=== PATIENT | female | born 1970 | race Caucasian/White ===

== ENCOUNTER 2016-09-01 12:29 | Emergency (ER) | payer BC, OTHER ==
[~2016-09-01] VITALS: Ht 162.6 cm; Wt 100.0 kg
[~2016-09-01 12:29] MED LIST: BUPR-197 PO; CITRTAB7 PO; CLON0.5T PO; EQL400TA PO; ESTR.625 PO; IBUP800T23 PO; LEXA10TA PO; METO25 PO; URSO300 PO; VITA10002 PO
[2016-09-01 12:36] VITALS: BP 139/63; PULSE 60; RESP 20; TEMP 98.2; O2SAT 96
[2016-09-01] MEDS ORDERED: FAMOTIDINE 20 MG/2 ML VIAL IV PUSH ONE (12:45)
[2016-09-01] MEDS ORDERED: SODIUM CHLORIDE 0.9% FLUSH 10 ML FLUSH IV FLUSH PRN (12:45)
--- NOTE | 2016-09-01 12:47 | PD ---
HPI Chief Complaint: Allergic/Adverse Reaction Time Seen by Provider: 12:44 Travel History International Travel<30 days: Yes Contact w/Intl Traveler<30days: [place] Traveled to: [email or web address] Traveled to known affect area: No History of Present Illness HPI 46-year-old female presents to the emergency department via EMS for evaluation after anaphylactic reaction to iodine. Patient came back from [place] last week and has been having diarrhea since. She saw her primary care physician, Dr. Rojas, who placed her on ciprofloxacin and Flagyl. She was having a CT the abdomen/pelvis done today at [facility] when they injected IV dye. She became short of breath and had hives on her back and trunk. She denies any tongue swelling or airway edema. Patient received Solu-Medrol, Benadryl, epinephrine prior to arrival. She states that when she had the allergic reaction, she had chest pressure, but that resolved when she received the medications. Patient states she feels much better at this time. Apparently, she was hypotensive and bradycardic when EMS arrived. Patient reports history gastric bypass, hypertension, GERD. She states she had a normal cardiac catheterization in 2007. She denies any cardiac history. PFSH Past Medical History Blood Disorders: No Anxiety: Yes (OC DISORDER) Depression: Yes Heart Rhythm Problems: Yes (TACHYCARDIA) Cancer: No Cardiac Catheterization: Yes (2010: NEGATIVE) Cardiovascular Problems: Yes (PALPITATIONS) High Cholesterol: Yes (resolved after gastric bypass) Chest Pain: Yes Diabetes: Yes (HX OF DIABETES PRIOR TO GASTRIC BYPASS) Patient Takes Glucophage: No Diminished Hearing: No Endocrine: Yes Gastrointestinal Disorders: Yes (PAIN/DIARRHEA) GERD: Yes Glaucoma: No Genitourinary: No Headaches: Yes Hepatitis: No Hiatal Hernia: No Hypertension: Yes (states resolved with gastric bypass) Immune Disorder: No Musculoskeletal: No Neurologic: No Psychiatric: Yes Reproductive: No Respiratory: No Immunizations Current: Yes Migraines: No Shingles: Yes Thyroid Disease: No PNEUMOCCOCAL Vaccine (Year): 1 ?: Not : 3 Para: 2 : 1 Dilation and Curettage (D&C): Yes (x3) Past Surgical History Abdominal Surgery: Yes (gastric bypass, HERNIA REPAIR/BOWEL RESECTION, APPY) AICD: No Appendectomy: Yes Cardiac Surgery: No Ear Surgery: No Endocrine Surgery: No Eye Surgery: No Genitourinary Surgery: No Gynecologic Surgery: Yes (D & C X3, HYSTERECTOMY/ BSO) Hysterectomy: Yes Joint Replacement: No Oral Surgery: No Pacemaker: No Thoracic Surgery: No Other Surgery: Yes Social History Alcohol Use: No Tobacco Use: No Substance Use: No Allergies-Medications (Allergen,Severity, Reaction): Coded Allergies: Adhesives (Unverified Allergy, Severe, SKIN BREAKDOWN, 09/21/15) Contrast Media (Verified Allergy, Severe, shortness of breath and hives, ) Sulfa (Verified Allergy, Severe, Hives, 09/21/15) *MDRO Multi-Drug Resistant Organism (Verified Adverse Reaction, Unknown, ) ESBL (sputum) - 2011 Reported Meds & Prescriptions Reported Meds & Active Scripts Active Zantac (Ranitidine HCl) 150 Mg Tab 150 Mg PO BID 4 Days Prednisone 20 Mg Tab 40 Mg PO DAILY 4 Days Epipen 2-Adam Inj (Epinephrine) 0.3 Mg/0.3 Ml Pfpen 0.3 Mg IM ONCE PRN Ibuprofen 800 Mg Tab 800 Mg PO Q6H PRN Reported Vitamin B12 (Cyanocobalamin) 1,000 Mcg Tab 1,000 Mcg PO DAILY Wellbutrin (Bupropion HCl) 100 Mg Tab 150 Mg PO DAILY Eql Folic Acid (Folic Acid) 400 Mcg Tab 400 Mcg PO DAILY Clonazepam 0.5 Mg Tab 0.5 Mg PO BID Citracal + D3 Maximum (Calcium Citrate/Cholecalciferol) Tab 1 Tab PO BID Actigall (Ursodiol) 300 Mg Cap 300 Mg PO BID Premarin (Estrogens Conjugated) 0.625 Mg Tab 0.625 Mg PO DAILY Metoprolol Tartrate 25 mg (Metoprolol Tartrate) 25 Mg Tab 12.5 Mg PO HS Lexapro (Escitalopram Oxalate) 10 Mg Tab 20 Mg PO HS Review of Systems Except as stated in HPI: all other systems reviewed are Neg Physical Exam Narrative GENERAL: Well-nourished, well-developed female patient, afebrile. SKIN: Focused skin assessment warm/dry. Patient has urticaria below her bilateral breasts, worse under the right breast. HEAD: Normocephalic. Atraumatic. ENT: Mucosa pink and moist. No erythema or exudates. No uvular edema. No uvular , palatal, or tonsillar deviation. Airway patent. Nasal turbinates appear normal without nasal blood, purulent drainage or septal hematoma. EYES: No scleral icterus. No injection or drainage. NECK: Supple, trachea midline. No JVD or lymphadenopathy. CARDIOVASCULAR: Regular rate and rhythm without murmurs, gallops, or rubs. RESPIRATORY: Breath sounds equal bilaterally. No accessory muscle use. Lungs sounds are clear to auscultation. GASTROINTESTINAL: Abdomen soft, non-tender, nondistended. MUSCULOSKELETAL: No cyanosis, or edema. BACK: Nontender without obvious deformity. No CVA tenderness. Data Data Last Documented VS Vital Signs Date Time Temp Pulse Resp B/P Pulse Ox O2 Delivery O2 Flow Rate FiO2 09/01/16 13:55 65 18 118/57 98 Room Air 09/01/16 12:40 2 09/01/16 12:36 98.2 Orders Basic Metabolic Panel (Bmp) (09/01/16 12:42) Complete Blood Count With Diff (09/01/16 12:42) Ecg Monitoring (09/01/16 12:42) Iv Access Insert/Monitor (09/01/16 12:42) Oximetry (09/01/16 12:42) Famotidine Inj (Pepcid Inj) (09/01/16 12:45) Sodium Chloride 0.9% Flush (Ns Flush) (09/01/16 12:45) Creatine Kinase (Cpk) (09/01/16 12:42) Troponin I (09/01/16 12:42) Magnesium (Mg) (09/01/16 12:42) Electrocardiogram (09/01/16 ) Labs Laboratory Tests Test 09/01/16 12:45 White Blood Count 7.4 TH/MM3 Red Blood Count 4.80 MIL/MM3 Hemoglobin 14.0 GM/DL Hematocrit 41.3 % Mean Corpuscular Volume 86.2 FL Mean Corpuscular Hemoglobin 29.2 PG Mean Corpuscular Hemoglobin 33.8 % Concent Red Cell Distribution Width 13.5 % Platelet Count 130 TH/MM3 Mean Platelet Volume 9.2 FL Neutrophils (%) (Auto) 73.5 % Lymphocytes (%) (Auto) 22.7 % Monocytes (%) (Auto) 2.3 % Eosinophils (%) (Auto) 1.0 % Basophils (%) (Auto) 0.5 % Neutrophils # (Auto) 5.4 TH/MM3 Lymphocytes # (Auto) 1.7 TH/MM3 Monocytes # (Auto) 0.2 TH/MM3 Eosinophils # (Auto) 0.1 TH/MM3 Basophils # (Auto) 0.0 TH/MM3 CBC Comment DIFF FINAL Differential Comment Sodium Level 140 MEQ/L Potassium Level 3.8 MEQ/L Chloride Level 106 MEQ/L Carbon Dioxide Level 24.5 MEQ/L Anion Gap 10 MEQ/L Blood Urea Nitrogen 12 MG/DL Creatinine 0.63 MG/DL Estimat Glomerular Filtration 101 ML/MIN Rate Random Glucose 182 MG/DL Calcium Level 8.8 MG/DL Magnesium Level 1.8 MG/DL Total Creatine Kinase 50 U/L Troponin I LESS THAN 0.02 NG/ML MDM Medical Decision Making Medical Screen Exam Complete: Yes Emergency Medical Condition: Yes Medical Record Reviewed: Yes Differential Diagnosis Anaphylaxis versus allergic reaction versus ACS versus electrolyte abnormality Narrative Course 46-year-old female presents to the emergency department via EMS for evaluation of allergic reaction to contrast dye. Patient has received Solu-Medrol, epinephrine, Benadryl prior to arrival. Patient states she feels much better at this time. Vital signs are stable. EKG, CBC, BMP, magnesium, CK, troponin are ordered and pending. EKG shows sinus bradycardia, incomplete right bundle branch block, no acute ST changes. CBC shows no acute abnormality. BMP shows hyperglycemia 182, no acute abnormality. CK is 50. Magnesium is 1.8. Troponin is less than 0.02. Patient is monitored in the emergency department. Patient is asking to go home. She is ambulatory in the emergency Department, vital signs are stable. She states she feels fine and does not want to stay here. Patient will be discharged with a prescription for EpiPen. She also be given a short-term prescription for prednisone, Zantac. She is taking Benadryl [id number]. She verbalizes agreement and understanding. She is return immediately for any worsening symptoms. The patient was discharged in stable condition with instructions, including return instructions and follow up instructions. Diagnosis Primary Impression: Anaphylactic reaction Qualified Code: T78.2XXA - Anaphylactic reaction, initial encounter Referrals: Primary Care Physician call for appointment Patient Instructions: Anaphylaxis (ED), General Instructions Additional Instructions: Take prednisone as instructed. Start this tomorrow. Take Zantac as directed. [id number] Benadryl 25-50 mg every 6-8 hours as needed. Epipen only as needed for anaphylaxis. Follow-up with your primary care physician. Return to the emergency department for any acute worsening of symptoms. Med/Other Pt SpecificInfo: Prescription(s) given Scripts Ranitidine (Zantac)150 Mg [id number] Mg PO BID 4 Days Ref 0 Prov:Odalis West 09/01/16 Prednisone 20 Mg Tab40 Mg PO DAILY 4 Days Ref 0 Prov:Odalis West 09/01/16 Epinephrine Inj (Epipen 2-Adam Inj)0.3 Mg/0.3 Ml Pfpen0.3 Mg IM ONCE PRN ( ALLERGIC REACTION) #1 PACK Ref 0 Prov:Ian Guo MD 09/01/16 Disposition: 01 DISCHARGE HOME Condition: Stable Odalis West Sep 01, 2016 12:47
[2016-09-01 13:02] VITALS: O2SAT 99
[2016-09-01 13:05] LABS: AUTOMATED NEUTROPHIL # 5.4 TH/MM3 (1.8-7.7); BASOPHIL % 0.5 % (0.0-2.0); EOSINOPHIL # 0.1 TH/MM3 (0-0.4); HEMATOCRIT 41.3 % (35.0-46.0); HEMO FLAGS DIFF FINAL; LYMPH % 22.7 % (9.0-44.0); LYMPHOCYTE # 1.7 TH/MM3 (1.0-4.8); MEAN CELL VOLUME 86.2 FL (80.0-100.0); MEAN CORPUSCULAR HEMOGLOBIN 29.2 PG (27.0-34.0); MEAN CORPUSCULAR HGB CONC 33.8 % (32.0-36.0); MONO % 2.3 % (0.0-8.0); NEUT % 73.5 % (16.0-70.0); PLATELET COUNT 130 TH/MM3 (150-450); RED CELL DISTRIBUTION WIDTH 13.5 % (11.6-17.2); WHITE BLOOD COUNT 7.4 TH/MM3 (4.0-11.0)
[2016-09-01 13:22] LABS: ANION GAP 10 MEQ/L (5-15); BICARBONATE 24.5 MEQ/L (21.0-32.0); BLOOD UREA NITROGEN 12 MG/DL (7-18); CHLORIDE 106 MEQ/L (98-107); GLOMERULAR FILTRATION RATE 101 ML/MIN (>89); MAGNESIUM 1.8 MG/DL (1.5-2.5); POTASSIUM 3.8 MEQ/L (3.5-5.1); SODIUM (NA) 140 MEQ/L (136-145)
[2016-09-01 13:30] LABS: CREATINE KINASE 50 U/L (26-192)
[2016-09-01] MEDS ORDERED: EPIP0.3I IM (13:31)
[2016-09-01] MEDS ORDERED: ZANT150T2 PO (13:52)
[2016-09-01] MEDS ORDERED: PRED20 PO (13:52)
[2016-09-01 13:55] VITALS: BP 118/57; PULSE 65; RESP 18; O2SAT 98
--- NOTE | 2016-09-02 12:02 | EKG ---
Date Performed: 09/01/2016 Time Performed: 12:50:50 PTAGE: 46 years EKG: SINUS BRADYCARDIA INTRAVENTRICULAR CONDUCTION DELAY Right bundle branch block ABNORMAL ECG PREVIOUS TRACING : 09/21/2015 20.43 DOCTOR: Deion Cruz Interpretating Date/Time 09/02/2016 12:00:09
== END 2016-09-01 14:19 | disposition home or self-care (01) ==
LOC: NEPC 12:29
DX: T78.2XXA Anaphylactic shock, unspecified, initial encounter (principal); Z98.84 Bariatric surgery status
CPT/HCPCS: 80048; 82550; 83735; 84484; 85025; 93005; 99284

== ENCOUNTER 2016-10-17 21:18 | Emergency (ER) | payer OTHER ==
[~2016-10-17] VITALS: Ht 162.6 cm; Wt 126.5 kg
[~2016-10-17 21:18] MED LIST changes: +EPIP0.3I IM; +PRED20 PO; +ZANT150T2 PO
[2016-10-17 21:31] VITALS: BP 135/74; PULSE 71; RESP 18; TEMP 97.5; O2SAT 97
[2016-10-17] MEDS ORDERED: CLON0.5T PO (21:48)
[2016-10-17] MEDS ORDERED: ALPR.5 PO (21:48)
[2016-10-17] MEDS ORDERED: MAGN100T2 PO (21:48)
[2016-10-17] MEDS ORDERED: OMEP20TA PO (21:48)
[2016-10-17] MEDS ORDERED: LEXA20TA PO (21:48)
[2016-10-17] MEDS ORDERED: CALC600T4 PO (21:48)
[2016-10-17] MEDS ORDERED: METO25TA3 PO (21:48)
[2016-10-17] MEDS ORDERED: WELLTAB39 PO (21:48)
[2016-10-17] MEDS ORDERED: CYAN1TAB24 PO (21:48)
[2016-10-17] MEDS ORDERED: DOCU100C PO (21:48)
[2016-10-17] MEDS ORDERED: MULT-65 PO (21:48)
[2016-10-17] MEDS ORDERED: FOLI400T PO (21:48)
[2016-10-17] MEDS ORDERED: MOBI7.5T PO (21:48)
--- NOTE | 2016-10-17 21:50 | PD ---
HPI Chief Complaint: Injury Time Seen by Provider: 21:47 Travel History International Travel<30 days: No Contact w/Intl Traveler<30days: No Traveled to known affect area: No History of Present Illness HPI 46-year-old female presents to the ED for evaluation of left ankle pain. Onset at 7:30 this evening after the patient tripped and fell in the parking lot. She reports hearing a loud crack. Pain is on the lateral aspect of the foot. She endorses taking a few limping steps with a great amount of pain. She endorses pins and needle sensation. She denies limitations to range of motion. She has never injured this foot before. She treated with 800 mg ibuprofen just after the accident. PFSH Past Medical History Blood Disorders: No Anxiety: Yes (OC DISORDER) Depression: Yes Heart Rhythm Problems: Yes (TACHYCARDIA) Cancer: No Cardiac Catheterization: Yes (2010: NEGATIVE) Cardiovascular Problems: Yes (PALPITATIONS) High Cholesterol: Yes (resolved after gastric bypass) Chest Pain: Yes Diabetes: Yes (HX OF DIABETES PRIOR TO GASTRIC BYPASS) Diminished Hearing: No Endocrine: Yes Gastrointestinal Disorders: Yes (PAIN/DIARRHEA) GERD: Yes Glaucoma: No Genitourinary: No Headaches: Yes Hepatitis: No Hiatal Hernia: No Hypertension: Yes (states resolved with gastric bypass) Immune Disorder: No Musculoskeletal: No Neurologic: No Psychiatric: Yes Reproductive: No Respiratory: No Immunizations Current: Yes Migraines: No Shingles: Yes Thyroid Disease: No PNEUMOCCOCAL Vaccine (Year): 1 : 3 Para: 2 : 1 Dilation and Curettage (D&C): Yes (x3) Past Surgical History Abdominal Surgery: Yes (gastric bypass, HERNIA REPAIR/BOWEL RESECTION, APPY) AICD: No Appendectomy: Yes Cardiac Surgery: No Ear Surgery: No Endocrine Surgery: No Eye Surgery: No Genitourinary Surgery: No Gynecologic Surgery: Yes (D & C X3, HYSTERECTOMY/ BSO) Hysterectomy: Yes Joint Replacement: No Oral Surgery: No Pacemaker: No Thoracic Surgery: No Other Surgery: Yes Social History Alcohol Use: No Tobacco Use: No Substance Use: No Allergies-Medications (Allergen,Severity, Reaction): Coded Allergies: Sulfa (Sulfonamide Antibiotics) (Unverified Allergy, Severe, Hives, ) adhesive (Unverified Allergy, Severe, SKIN BREAKDOWN, 09/26/16) diatrizoate meglumine (Unverified Allergy, Severe, shortness of breath and hives, 09/26/16) gadobenic acid (Unverified Allergy, Severe, shortness of breath and hives , 09/26/16) gadodiamide (Unverified Allergy, Severe, shortness of breath and hives, ) gadoteridol (Unverified Allergy, Severe, shortness of breath and hives, ) iodixanol (Unverified Allergy, Severe, shortness of breath and hives, 09/26) iohexol (Unverified Allergy, Severe, shortness of breath and hives, ) *MDRO Multi-Drug Resistant Organism (Verified Adverse Reaction, Unknown, ) ESBL (sputum) - 2011 Reported Meds & Prescriptions Reported Meds & Active Scripts Active Wheelchair (Device) 1 Mis Mis Ea .ROUTE DIRECTED Ibuprofen 600 Mg Tab 600 Mg PO Q8HR 5 Days Reported Docusate Sodium 100 Mg Cap 200 Mg PO DAILY Clonazepam 0.5 Mg Tab 0.5 Mg PO BID Xanax (Alprazolam) 0.5 Mg Tab 0.5 Mg PO HS Metoprolol Tartrate 25 Mg Tab 12.5 Mg PO DAILY Mobic (Meloxicam) 7.5 Mg Tab 7.5 Mg PO DAILY Lexapro (Escitalopram Oxalate) 20 Mg Tab 20 Mg PO DAILY Magnesium Citrate 100 Mg Tab 100 Mg PO BID Folic Acid 0.4 Mg Tab 400 Mcg PO DAILY Calcium Carbonate 1,500 Mg Tab 1,500 Mg PO BID 1,500 mg calcium carbonate (600 mg elemental calcium) Omeprazole 20 Mg Tab 20 Mg PO DAILY Multi-Vitamin Daily (Multiple Vitamin) 1 Tab Tab 1 Tab PO DAILY B12 (Cyanocobalamin) 1,000 Mcg Tab 1 Tab PO DAILY Wellbutrin Xl 24 HR (Bupropion HCl) 300 Mg Tab 300 Mg PO DAILY Review of Systems Except as stated in HPI: all other systems reviewed are Neg Physical Exam Narrative GENERAL: Well-nourished, well-developed obese white female in no acute distress. SKIN: Focused skin assessment warm/dry. HEAD: Normocephalic. EYES: No scleral icterus. No injection or drainage. NECK: Supple, trachea midline. No JVD or lymphadenopathy. CARDIOVASCULAR: Regular rate and rhythm without murmurs, gallops, or rubs. RESPIRATORY: Breath sounds equal bilaterally. No accessory muscle use. GASTROINTESTINAL: Abdomen soft, non-tender, nondistended. MUSCULOSKELETAL: No cyanosis, or edema. Focused left lower extremity exam: 2+ DP pulse. Edema and tenderness to palpation of the lateral malleolus and the base of the fifth metatarsal. No tenderness to palpation of the medial malleolus or navicular. Patient is able to wiggle the toes. Neurovascularly intact. BACK: Nontender without obvious deformity. No CVA tenderness. Data Data Last Documented VS Vital Signs Date Time Temp Pulse Resp B/P (MAP) Pulse Ox O2 Delivery O2 Flow Rate FiO2 10/17/16 21:31 97.5 71 18 135/74 (94) 97 Orders Orders Ankle, Complete (Opt1ary) (10/17/16 22:12) Ice/Cold Pack (10/17/16 22:12) Crutches (10/17/16 22:40) Splint Or Brace Apply/Monitor (10/17/16 22:40) MDM Medical Decision Making Medical Screen Exam Complete: Yes Emergency Medical Condition: Yes Differential Diagnosis Contusion versus ankle sprain versus avulsion fracture versus high ankle sprain versus fracture versus dislocation versus other Narrative Course 46-year-old female presents to the ED for evaluation of left ankle pain. Onset at 7:30 this evening after the patient tripped and fell in the parking lot. She reports hearing a loud crack. Pain is on the lateral aspect of the foot. She endorses taking a few limping steps with a great amount of pain. She endorses pins and needle sensation. She denies limitations to range of motion. She has never injured this foot before. She treated with 800 mg ibuprofen just after the accident. Vitals reviewed. Physical exam reveals a nontoxic- appearing white female in no acute distress. This tenderness to palpation of the lateral malleolus and the base of the fifth metatarsal, otherwise unremarkable. Icepack was applied. X-ray reveals nondisplaced fracture base of fifth metatarsal. Suspect this is avulsion fracture. Patient is provided with an Louie wrap, Velcro ankle brace, crutches. She was unable to ambulate on crutches and was therefore provided a prescription for wheelchair rental. She is provided a short course of anti-inflammatory medications, instructed to be strictly nonweightbearing, follow up with the stock chaser or orthopedist. She indicated understanding of instructions and is agreeable to the care plan. She is stable and discharged home. Diagnosis Primary Impression: Left ankle sprain Qualified Codes: S93.492A - Sprain of other ligament of left ankle, initial encounter Additional Impression: Fracture of 5th metatarsal Qualified Codes: S92.355A - Nondisplaced fracture of fifth metatarsal bone, left foot, initial encounter for closed fracture Referrals: Suman Peterson MD, [facility] Customer Service Associate Patient Instructions: Ankle Sprain (ED), Ankle Sprain Exercises (GEN), General Instructions Additional Instructions: Rest, ice, elevate the extremity. Apply ice no longer than 10-15 minutes per hour a few times a day. 600 mg ibuprofen up to 3 times a day as needed for pain. Do not take prednisone and ibuprofen concurrently. No weight bearing until cleared by the orthopedist. Follow up with the orthopedist or stock chaser this week. Return to the ED for any urgent or emergent medical condition. Med/Other Pt SpecificInfo: Prescription(s) given Scripts Wheelchair (Wheelchair) 1 Mis Mis EA .ROUTE DIRECTED, #1 0 Refills Prov: Scottie Garland MD 10/17/16 Ibuprofen (Ibuprofen) 600 Mg Tab 600 MG PO Q8HR for 5 Days, TAB 0 Refills Prov: Scottie Garland MD 10/17/16 Disposition: 01 DISCHARGE HOME Condition: Stable Pooja Dumas Oct 17, 2016 21:50
[2016-10-17] MEDS ORDERED: IBUP-232 PO (22:42)
--- NOTE | 2016-10-17 22:46 | RADRPT ---
EXAM DATE/TIME: 10/17/2016 22:25 [place] COMPARISON: No previous studies available for comparison. INDICATIONS : Lateral left ankle swelling after twisting it tonight. MEDICAL HISTORY : None. SURGICAL HISTORY : None. ENCOUNTER: Initial ACUITY: 1 day PAIN SCORE: 6/10 LOCATION: Left lateral ankle. FINDINGS: Three view exam was performed of the left ankle. There is a mildly displaced left fifth metatarsal fr acture. Soft tissue swelling over lateral malleolus. The ankle mortise is intact. No radiopaque fore ign bodies are seen. Bony mineralization is normal. CONCLUSION: Soft tissue swelling of the left ankle. Mildly displaced left fifth metatarsal fracture proximally. Sina Blevins MD on October 17, 2016 at 22:44 Board Certified Radiologist. This report was verified electronically.
[2016-10-17] MEDS ORDERED: WHEEMIS3 (23:01)
== END 2016-10-17 23:02 | disposition home or self-care (01) ==
LOC: PHEFT 21:18
DX: S93.492A Sprain of other ligament of left ankle, initial encounter (principal); S92.355A Nondisplaced fracture of fifth metatarsal bone, left foot, initial encounter for closed fracture; R00.0 Tachycardia, unspecified; R00.2 Palpitations; Z98.84 Bariatric surgery status; W01.0XXA Fall on same level from slipping, tripping and stumbling without subsequent striking against object, initial encounter; Y93.01 Activity, walking, marching and hiking; Y92.481 Parking lot as the place of occurrence of the external cause; Y99.8 Other external cause status
CPT/HCPCS: 73610; 99283; E0113; L1906

== ENCOUNTER 2017-02-11 02:32 | Inpatient (IN) | payer OTHER ==
[~2017-02-11] VITALS: Ht 157.5 cm; Wt 123.1 kg
[2017-02-11] VITALS (11 sets, daily range): BP systolic 113–149; BP diastolic 53–74; PULSE 53–98; RESP 12–20; TEMP 96.2–100.5; O2SAT 94–99
[~2017-02-11 02:32] MED LIST changes: +ALPR.5 PO; -BUPR-197 PO; +CALC600T4 PO; -CITRTAB7 PO; +CYAN1TAB24 PO; +DOCU100C15 PO; -EPIP0.3I IM; -EQL400TA PO; -ESTR.625 PO; +FOLI400T PO; +IBUP-232 PO; -IBUP800T23 PO; -LEXA10TA PO; +LEXA20TA PO; +MAGN100T2 PO; -METO25 PO; +METO25TA3 PO; +MOBI7.5T PO; +MULT-65 PO; +OMEP20TA93 PO; -PRED20 PO; -URSO300 PO; -VITA10002 PO; +WELLTAB39 PO; +WHEEMIS3; -ZANT150T2 PO
[2017-02-11] MEDS ORDERED: ALPR0.25 PO (03:06)
[2017-02-11] MEDS ORDERED: HYDR-3516 PO (03:06)
[2017-02-11] MEDS ORDERED: MAGN400T2 PO (03:06)
[2017-02-11] MEDS ORDERED: URSO300C2 PO (03:06)
[2017-02-11] MEDS ORDERED: SODIUM CHLOR 0.9% 1000 ML INJ 1,000 ML IV SCH ×2 (03:16→14:00)
--- NOTE | 2017-02-11 03:23 | PD ---
HPI Chief Complaint: Abdominal Pain Time Seen by Provider: 03:16 Travel History International Travel<30 days: No Contact w/Intl Traveler<30days: No Traveled to known affect area: No History of Present Illness HPI The patient is a 46-year-old female who complains since 8:00 of right upper quadrant abdominal pain radiating to her right scapular region. She states she has gallstones and was told by Dr. Hutchins that she needed to have her gallbladder removed. She states she has had everything else out, the appendix and uterus and has had a gastric bypass. She complains of nausea and vomiting as well as the abdominal pain. She denies any fever. The gastric bypass was 5 years ago. PFSH Past Medical History Blood Disorders: No Anxiety: Yes (OC DISORDER) Depression: Yes Heart Rhythm Problems: Yes (TACHYCARDIA) Cancer: No Cardiac Catheterization: Yes (2010: NEGATIVE) Cardiovascular Problems: Yes (PALPITATIONS) High Cholesterol: Yes (resolved after gastric bypass) Chest Pain: Yes Diabetes: Yes (HX OF DIABETES PRIOR TO GASTRIC BYPASS) Diminished Hearing: No Endocrine: Yes Gastrointestinal Disorders: Yes (PAIN/DIARRHEA) GERD: Yes Glaucoma: No Genitourinary: No Headaches: Yes Hepatitis: No Hiatal Hernia: No Hypertension: Yes Immune Disorder: No Musculoskeletal: No Neurologic: No Psychiatric: Yes Reproductive: No Respiratory: No Immunizations Current: Yes Migraines: No Shingles: Yes Thyroid Disease: No PNEUMOCCOCAL Vaccine (Year): 1 ?: Not : 3 Para: 2 : 1 Dilation and Curettage (D&C): Yes (x3) Past Surgical History Abdominal Surgery: Yes (GASTRIC BYPASS, HERNIA REPAIR/BOWEL RESECTION, APPY) AICD: No Appendectomy: Yes Cardiac Surgery: No Ear Surgery: No Endocrine Surgery: No Eye Surgery: No Genitourinary Surgery: No Gynecologic Surgery: Yes (D & C X3, HYSTERECTOMY/ BSO) Hysterectomy: Yes Joint Replacement: No Oral Surgery: No Pacemaker: No Thoracic Surgery: No Other Surgery: Yes Social History Alcohol Use: No Tobacco Use: No Substance Use: No Allergies-Medications (Allergen,Severity, Reaction): Coded Allergies: Sulfa (Sulfonamide Antibiotics) (Unverified Allergy, Severe, Hives, ) adhesive (Unverified Allergy, Severe, SKIN BREAKDOWN, 02/11/17) diatrizoate meglumine (Unverified Allergy, Severe, shortness of breath and hives, 02/11/17) gadobenic acid (Unverified Allergy, Severe, shortness of breath and hives , 02/11/17) gadodiamide (Unverified Allergy, Severe, shortness of breath and hives, ) gadoteridol (Unverified Allergy, Severe, shortness of breath and hives, ) iodixanol (Unverified Allergy, Severe, shortness of breath and hives, ) iohexol (Unverified Allergy, Severe, shortness of breath and hives, ) *MDRO Multi-Drug Resistant Organism (Verified Adverse Reaction, Unknown, 02/11/17) ESBL (sputum) - 2011 Reported Meds & Prescriptions Reported Meds & Active Scripts Active Ibuprofen 600 Mg Tab 600 Mg PO Q8HR 5 Days Reported Hydrocodone-Acetaminophen 5-325 mg Tab 1 Tab PO Q4H PRN Ursodiol 300 Mg Cap 300 Mg PO BID Magnesium Oxide 400 Mg Tab 400 Mg PO DIRECTED Alprazolam 0.25 Mg Tab 0.25 Mg PO Q4H PRN Docusate Sodium 100 Mg Cap 200 Mg PO DAILY Clonazepam 0.5 Mg Tab 0.5 Mg PO BID Metoprolol Tartrate 25 Mg Tab 12.5 Mg PO DAILY Mobic (Meloxicam) 7.5 Mg Tab 7.5 Mg PO DAILY Lexapro (Escitalopram Oxalate) 20 Mg Tab 20 Mg PO DAILY Magnesium Citrate 100 Mg Tab 100 Mg PO BID Folic Acid 0.4 Mg Tab 400 Mcg PO DAILY Calcium Carbonate 1,500 Mg Tab 1,500 Mg PO BID 1,500 mg calcium carbonate (600 mg elemental calcium) Omeprazole 20 Mg Tab 20 Mg PO DAILY Multi-Vitamin Daily (Multiple Vitamin) 1 Tab Tab 1 Tab PO DAILY B12 (Cyanocobalamin) 1,000 Mcg Tab 1 Tab PO DAILY Wellbutrin Xl 24 HR (Bupropion HCl) 300 Mg Tab 300 Mg PO DAILY Review of Systems Except as stated in HPI: all other systems reviewed are Neg Physical Exam Narrative GENERAL: The patient is obese, alert, oriented 3 in moderate apparent distress with her right upper quadrant abdominal discomfort. The temperature is 97.6 but the rest of her vital signs are normal. SKIN: Focused skin assessment warm/dry. HEAD: Atraumatic. Normocephalic. EYES: Pupils equal and round. No scleral icterus. No injection or drainage. ENT: No nasal bleeding or discharge. Mucous membranes pink and moist. NECK: Trachea midline. No JVD. CARDIOVASCULAR: Regular rate and rhythm. No murmur appreciated. RESPIRATORY: No accessory muscle use. Clear to auscultation. Breath sounds equal bilaterally. GASTROINTESTINAL: Abdomen soft, with tenderness to direct palpation in the right upper quadrant, nondistended. Hepatic and splenic margins not palpable. Aviles's sign is negative . There is no guarding or rebound present. MUSCULOSKELETAL: No obvious deformities. No clubbing. No cyanosis. No edema. NEUROLOGICAL: Awake and alert. No obvious cranial nerve deficits. Motor grossly within normal limits. Normal speech. PSYCHIATRIC: Appropriate mood and affect; insight and judgment normal. Data Data Last Documented VS Vital Signs Date Time Temp Pulse Resp B/P (MAP) Pulse Ox O2 Delivery O2 Flow Rate FiO2 02/11/17 03:35 53 20 147/68 (94) 96 02/11/17 02:39 97.6 Orders Orders Complete Blood Count With Diff (02/11/17 03:13) Comprehensive Metabolic Panel (02/11/17 03:13) Urinalysis - C+S If Indicated (02/11/17 03:13) Iv Access Insert/Monitor (02/11/17 03:13) Oximetry (02/11/17 03:13) Lipase (02/11/17 03:13) Ct Abd/Pel W/O Iv Contrast (02/11/17 03:16) Ecg Monitoring (02/11/17 03:16) Ondansetron Inj (Zofran Inj) (02/11/17 03:30) Sodium Chlor 0.9% 1000 Ml Inj (Ns 1000 M (02/11/17 03:16) Sodium Chloride 0.9% Flush (Ns Flush) (02/11/17 03:30) Ketorolac Inj (Toradol Inj) (02/11/17 03:30) Hydromorphone Pf Inj (Dilaudid Pf Inj) (02/11/17 03:30) Labs Laboratory Tests Test 02/11/17 03:00 White Blood Count 7.3 TH/MM3 Red Blood Count 4.90 MIL/MM3 Hemoglobin 13.5 GM/DL Hematocrit 42.5 % Mean Corpuscular Volume 86.8 FL Mean Corpuscular Hemoglobin 27.5 PG Mean Corpuscular Hemoglobin Concent 31.7 % Red Cell Distribution Width 12.6 % Platelet Count 180 TH/MM3 Mean Platelet Volume 8.9 FL Neutrophils (%) (Auto) 68.9 % Lymphocytes (%) (Auto) 25.8 % Monocytes (%) (Auto) 3.3 % Eosinophils (%) (Auto) 1.3 % Basophils (%) (Auto) 0.7 % Neutrophils # (Auto) 5.0 TH/MM3 Lymphocytes # (Auto) 1.9 TH/MM3 Monocytes # (Auto) 0.2 TH/MM3 Eosinophils # (Auto) 0.1 TH/MM3 Basophils # (Auto) 0.1 TH/MM3 CBC Comment DIFF FINAL Differential Comment Blood Urea Nitrogen 18 MG/DL Creatinine 0.59 MG/DL Random Glucose 163 MG/DL Total Protein 7.0 GM/DL Albumin 3.4 GM/DL Calcium Level 8.8 MG/DL Alkaline Phosphatase 118 U/L Aspartate Amino Transf (AST/SGOT) 14 U/L Alanine Aminotransferase (ALT/SGPT) 24 U/L Total Bilirubin 0.7 MG/DL Sodium Level 139 MEQ/L Potassium Level 4.1 MEQ/L Chloride Level 106 MEQ/L Carbon Dioxide Level 25.0 MEQ/L Anion Gap 8 MEQ/L Estimat Glomerular Filtration Rate 109 ML/MIN Lipase 170 U/L MDM Medical Decision Making Medical Screen Exam Complete: Yes Emergency Medical Condition: Yes Medical Record Reviewed: Yes Interpretation(s) The CT abdomen/pelvis without IV contrast shows previous gastric bypass with high-grade obstruction of the Volodymyr limb. This is probably at the jejunal anastomosis. Also noted was recurrent umbilical hernia containing a short segment of distal small bowel not acutely contributory. The CBC is normal. The complete metabolic profile shows a glucose of 163, alkaline phosphatase of 118 but is otherwise normal. The lipase is normal. Differential Diagnosis Small bowel obstruction, obstruction of gastric bypass, cholecystitis, cholelithiasis with colic, colitis, urinary tract infection Narrative Course The patient apparently has a high-grade obstruction of the rule him at the jejunal anastomosis. She also has a recurrent umbilical hernia which is not contributory in her symptoms. I discussed the patient with Dr. Trujillo, he will get the patient and we are to send her to [facility]. Diagnosis Primary Impression: Small bowel obstruction due to adhesions Admitting Information Admitting Physician Requests: Admit Ervin Estrella MD Feb 11, 2017 03:23
[2017-02-11 03:27] LABS: BASOPHIL # 0.1 TH/MM3 (0-0.2); BASOPHIL % 0.7 % (0.0-2.0); EOSINOPHIL # 0.1 TH/MM3 (0-0.4); EOSINOPHIL % 1.3 % (0.0-4.0); HEMATOCRIT 42.5 % (35.0-46.0); HEMOGLOBIN 13.5 GM/DL (11.6-15.3); LYMPH % 25.8 % (9.0-44.0); LYMPHOCYTE # 1.9 TH/MM3 (1.0-4.8); MEAN CELL VOLUME 86.8 FL (80.0-100.0); MEAN CORPUSCULAR HEMOGLOBIN 27.5 PG (27.0-34.0); MEAN CORPUSCULAR HGB CONC 31.7 % (32.0-36.0); MEAN PLATELET VOLUME 8.9 FL (7.0-11.0); MONO % 3.3 % (0.0-8.0); MONOCYTE # 0.2 TH/MM3 (0-0.9); NEUT % 68.9 % (16.0-70.0); PLATELET COUNT 180 TH/MM3 (150-450); RED CELL DISTRIBUTION WIDTH 12.6 % (11.6-17.2); WHITE BLOOD COUNT 7.3 TH/MM3 (4.0-11.0)
[2017-02-11] MEDS ORDERED: SODIUM CHLORIDE 0.9% FLUSH 10 ML FLUSH IV FLUSH PRN ×2 (03:30→13:45)
[2017-02-11] MEDS ORDERED: HYDROmorphone HCL PF 2 MG/ML VIAL IV PUSH ONE (03:30)
[2017-02-11] MEDS ORDERED: ONDANSETRON HCL 4 MG/2 ML VIAL IVP ONE ×2 (03:30→04:45)
[2017-02-11] MEDS ORDERED: KETOROLAC TROMETHAMINE 30 MG/ML (IVP) VIAL IVP ONE (03:30)
[2017-02-11 03:45] LABS: CHLORIDE 106 MEQ/L (98-107); SODIUM (NA) 139 MEQ/L (136-145)
[2017-02-11 03:49] LABS: ALBUMIN 3.4 GM/DL (3.4-5.0); BLOOD UREA NITROGEN 18 MG/DL (7-18); CALCIUM 8.8 MG/DL (8.5-10.1); GLUCOSE,RANDOM 163 MG/DL (74-106); LIPASE 170 U/L (73-393)
[2017-02-11 03:52] LABS: ALT (GPT) 24 U/L (10-53); AST (GOT) 14 U/L (15-37); CREATININE 0.59 MG/DL (0.50-1.00); GLOMERULAR FILTRATION RATE 109 ML/MIN (>89)
[2017-02-11 03:54] LABS: TOTAL BILIRUBIN ADULT 0.7 MG/DL (0.2-1.0)
[2017-02-11 03:55] LABS: ALKALINE PHOSPHATASE 118 U/L (45-117)
--- NOTE | 2017-02-11 04:21 | RADRPT ---
EXAM DATE/TIME: 02/11/2017 03:45 [facility] COMPARISON: CT ABDOMEN & PELVIS W CONTRAST, August 21, 2012, 22:02. INDICATIONS : Mid right abdominal pain. ORAL CONTRAST: No oral contrast ingested. RADIATION DOSE: 24.54 CTDIvol (mGy) MEDICAL HISTORY : Hypertension. Renal calculi. SURGICAL HISTORY : Appendectomy. Hysterectomy.Colon resection.Gastric bypass ENCOUNTER: Initial ACUITY: 1 day PAIN SCALE: 7/10 LOCATION: Right Umbilical TECHNIQUE: Volumetric scanning of the abdomen and pelvis was performed. Using automated exposure control and ad justment of the mA and/or kV according to patient size, radiation dose was kept as low as reasonably achievable to obtain optimal diagnostic quality images. DICOM format image data is available electro nically for review and comparison. FINDINGS: LOWER LUNGS: The visualized lower lungs are clear. LIVER: Slight fatty infiltrated. 22 mm hypodensity of the left hepatic lobe not significantly changed probab ly benign focal nodular hyperplasia or a hemangioma. SPLEEN: Normal size without lesion. PANCREAS: Within normal limits. KIDNEYS: Normal in size and shape. There is no mass, stone, or hydronephrosis. ADRENAL GLANDS: Within normal limits. VASCULAR: There is no aortic aneurysm. BOWEL/MESENTERY: The patient has had previous gastric bypass and the volodymyr limb is obstructed, appears to be occurring at the distal anastomosis. The duodenal limb is normal. Distal to the anastomoses, small bowel calibe r is normal. There is a recurrent umbilical hernia containing a short segment of distal small bowel b ut does not appear to be acutely contributory. ABDOMINAL WALL: Within normal limits. RETROPERITONEUM: There is no lymphadenopathy. BLADDER: No wall thickening or mass. REPRODUCTIVE: Within normal limits. INGUINAL: There is no lymphadenopathy or hernia. MUSCULOSKELETAL: Within normal limits for patient age. CONCLUSION: 1. Previous gastric bypass. High-grade obstruction of the Volodymyr limb, probably at the jejunal anastomo sis. 2. Recurrent umbilical hernia containing a short segment of distal small bowel, not acutely contribut ory. Zak Guerrero MD on February 11, 2017 at 4:09 Board Certified Radiologist. This report was verified electronically.
[2017-02-11] MEDS ORDERED: HYDROmorphone HCL PF 2 MG/ML VIAL IVS ONE (04:45)
[2017-02-11 04:51] LABS: BILIRUBIN, URINE NEG (NEG); BLOOD, URINE SMALL (NEG); GLUCOSE,URINE NEG (NEG); KETONE, URINE NEG (NEG); NITRITE,URINE POS (NEG); URINE LEUKOCYTE ESTERASE TRACE (NEG)
[2017-02-11 05:00] LABS: URINE COLOR YELLOW (YELLW/STRAW)
[2017-02-11 05:01] LABS: BACTERIA, URINE MANY /hpf; RBC, URINE 0-3 /hpf (0-3)
[2017-02-11] MEDS ORDERED: BUPIVACAINE/EPINEPHRINE 0.25% 50 ML VIAL ONE (09:14)
[2017-02-11] MEDS ORDERED: ONDANSETRON HCL 4 MG/2 ML VIAL ONE (09:30)
[2017-02-11] MEDS ORDERED: methylPREDNISolone SOD SUCC 125 MG/2 ML VIAL ONE (09:57)
[2017-02-11] MEDS ORDERED: ceFAZolin INJ 1,000 MG VIAL ONE (10:08)
[2017-02-11] MEDS ORDERED: ceFAZolin INJ 1,000 MG VIAL IV ONE ×2 (10:10→12:00)
[2017-02-11] MEDS ORDERED: LACTATED RINGER'S 1000 ML INJ 2,000 ML IV ONE (12:00)
[2017-02-11] MEDS ORDERED: SODIUM CHLORIDE 0.9% 20 ML VIAL IV ONE (12:00)
[2017-02-11] MEDS ORDERED: SUCCINYLCHOLINE CHLORIDE 100 MG/5 ML SYRINGE IV PUSH ONE (12:00)
[2017-02-11] MEDS ORDERED: ROCURONIUM INJ 50 MG/5 ML SYRINGE IV PUSH ONE (12:00)
[2017-02-11] MEDS ORDERED: ePHEDrine/NS 25 MG/5 ML SYRINGE IV ONE (12:00)
[2017-02-11] MEDS ORDERED: LIDOCAINE HCL 1% PF 5 ML SYRINGE OTHER ONE (12:00)
[2017-02-11] MEDS ORDERED: PHENYLEPH/NS 1000 MCG/10 ML SYR IV ONE (12:00)
[2017-02-11] MEDS ORDERED: STERILE WATER FOR INJECTION 20 ML VIAL IV ONE (12:00)
[2017-02-11] MEDS ORDERED: VECURONIUM BROMIDE 20 MG VIAL IV ONE (12:00)
[2017-02-11] MEDS ORDERED: PROPOFOL 200 MG/20 ML AMP IV ONE (12:00)
[2017-02-11] MEDS ORDERED: NORMOSOL R INJ 2,000 ML IV ONE (12:00)
[2017-02-11] MEDS ORDERED: VECURONIUM BROMIDE 20 MG VIAL ONE (12:07)
[2017-02-11] MEDS ORDERED: RESP: ALBUTEROL 2.5 MG/3 ML NEB (PRN) ONE (12:34)
[2017-02-11] MEDS ORDERED: PROPOFOL 1000 MG/100 ML INJ 100 ML ONE (13:22)
[2017-02-11] MEDS ORDERED: MORPHINE SULFATE 30 MG/30 ML PCA IV SCH (13:45)
[2017-02-11] MEDS ORDERED: ONDANSETRON HCL 4 MG/2 ML VIAL IV PUSH PRN (13:45)
[2017-02-11] MEDS ORDERED: NALOXONE HCL 0.4 MG/ML AMP IV PUSH PRN (13:45)
[2017-02-11] MEDS ORDERED: MAGNESIUM HYDROXIDE SUSP 30 ML CUP PO PRN (13:45)
[2017-02-11] MEDS ORDERED: METOCLOPRAMIDE HCL 10 MG/2 ML VIAL IVS PRN (13:45)
[2017-02-11] MEDS ORDERED: Post-op Orders (for Pharmacy) XX ONE (13:56)
[2017-02-11] MEDS: PCA - TOTAL MG MORPHINE DELIVERED PER SHIFT SCH ×2 (14:00→22:00)
[2017-02-11] MEDS ORDERED: PROPOFOL 1000 MG/100 ML INJ 100 ML IV PRN (14:30)
[2017-02-11] MEDS ORDERED: MIDAZOLAM HCL 5 MG/ML VIAL (1 ML) ONE (14:50)
[2017-02-11] MEDS ORDERED: cefTRIAXone INJ 1,000 MG in SODIUM CHLORIDE 0.9% INJ 100 ML IV SCH (15:00)
--- NOTE | 2017-02-11 15:17 | RADRPT ---
EXAM DATE/TIME: 02/11/2017 14:37 [facility] COMPARISON: CHEST PA & LAT, September 21, 2015, 21:08. INDICATIONS : Short of breath. MEDICAL HISTORY : Hypertension. Renal calculi. SURGICAL HISTORY : Appendectomy. Hysterectomy. Colon resection. Gastric bypass ENCOUNTER: Initial ACUITY: 1 day PAIN SCORE: Non-responsive. LOCATION: Bilateral chest FINDINGS: There is significant perivascular pulmonary edema. Focal consolidation is not seen. ET tube is presen t with tip overlapping approximately 2 cm above the unruly. NG tube is present with tip in the stomac h. Heart and mediastinum are unremarkable for technique. CONCLUSION: Significant pulmonary edema not present previously. Bird Newberry MD on February 11, 2017 at 15:14 Board Certified Radiologist. This report was verified electronically.
--- NOTE | 2017-02-11 15:38 | HHI.HP ---
[facility] Service Critical Care Medicine Primary Care Physician Corby Rojas MD Admission Diagnosis small bowel obstruction Diagnosis: (1) Small bowel obstruction due to adhesions Diagnosis: Principal Chief Complaint: Abdominal pain Travel History International Travel<30 Days: No Contact w/Intl Traveler <30 Da: No Traveled to Known Affected Are: No History of Present Illness 46 y/o woman has developed abdominal pain and CT scan reveals small bowel obstruction, likely from adhesions related to prior surgery. She has a complicated medical history including morbid obesity and s/p yvon-en-y gastric bypass surgery. In the OR the patient sustained an aspiration followed by hypoxemia requiring increased ventilator support and Fi)O2. I met her on her arrival to the [facility] and discussed the case with Surgeon and Anesthesiologist at the bedside. Past Family Social History Allergies: Coded Allergies: Sulfa (Sulfonamide Antibiotics) (Unverified Allergy, Severe, Hives, ) adhesive (Unverified Allergy, Severe, SKIN BREAKDOWN, 02/11/17) diatrizoate meglumine (Unverified Allergy, Severe, shortness of breath and hives, 02/11/17) gadobenic acid (Unverified Allergy, Severe, shortness of breath and hives , 02/11/17) gadodiamide (Unverified Allergy, Severe, shortness of breath and hives, ) gadoteridol (Unverified Allergy, Severe, shortness of breath and hives, ) iodixanol (Unverified Allergy, Severe, shortness of breath and hives, ) iohexol (Unverified Allergy, Severe, shortness of breath and hives, ) *MDRO Multi-Drug Resistant Organism (Verified Adverse Reaction, Unknown, 02/11/17) ESBL (sputum) - 2011 Past Medical History Past Medical History Blood Disorders: No Anxiety: Yes (OC DISORDER) Depression: Yes Heart Rhythm Problems: Yes (TACHYCARDIA) Cancer: No Cardiac Catheterization: Yes (2010: NEGATIVE) Cardiovascular Problems: Yes (PALPITATIONS) High Cholesterol: Yes (resolved after gastric bypass) Chest Pain: Yes Diabetes: Yes (HX OF DIABETES PRIOR TO GASTRIC BYPASS) Diminished Hearing: No Endocrine: Yes Gastrointestinal Disorders: Yes (PAIN/DIARRHEA) GERD: Yes Glaucoma: No Genitourinary: No Headaches: Yes Hepatitis: No Hiatal Hernia: No Hypertension: Yes Immune Disorder: No Musculoskeletal: No Neurologic: No Psychiatric: Yes Reproductive: No Respiratory: No Immunizations Current: Yes Migraines: No Shingles: Yes Thyroid Disease: No PNEUMOCCOCAL Vaccine (Year): 1 ?: Not : 3 Para: 2 : 1 Dilation and Curettage (D&C): Yes (x3) Past Surgical History Abdominal Surgery: Yes (GASTRIC BYPASS, HERNIA REPAIR/BOWEL RESECTION, APPY) AICD: No Appendectomy: Yes Cardiac Surgery: No Ear Surgery: No Endocrine Surgery: No Eye Surgery: No Genitourinary Surgery: No Gynecologic Surgery: Yes (D & C X3, HYSTERECTOMY/ BSO) Hysterectomy: Yes Joint Replacement: No Oral Surgery: No Pacemaker: No Thoracic Surgery: No Other Surgery: Yes Social History Alcohol Use: No Tobacco Use: No Substance Use: No Allergies-Medications (Allergen,Severity, Reaction): Coded Allergies: Sulfa (Sulfonamide Antibiotics) (Unverified Allergy, Severe, Hives, ) adhesive (Unverified Allergy, Severe, SKIN BREAKDOWN, 02/11/17) diatrizoate meglumine (Unverified Allergy, Severe, shortness of breath and hives, 02/11/17) gadobenic acid (Unverified Allergy, Severe, shortness of breath and hives , 02/11/17) gadodiamide (Unverified Allergy, Severe, shortness of breath and hives, ) gadoteridol (Unverified Allergy, Severe, shortness of breath and hives, ) iodixanol (Unverified Allergy, Severe, shortness of breath and hives, ) iohexol (Unverified Allergy, Severe, shortness of breath and hives, ) *MDRO Multi-Drug Resistant Organism (Verified Adverse Reaction, Unknown, 02/11/17) ESBL (sputum) - 2011 Reported Meds & Prescriptions Reported Meds & Active Scripts Active Ibuprofen 600 Mg Tab 600 Mg PO Q8HR 5 Days Reported Hydrocodone-Acetaminophen 5-325 mg Tab 1 Tab PO Q4H PRN Ursodiol 300 Mg Cap 300 Mg PO BID Magnesium Oxide 400 Mg Tab 400 Mg PO DIRECTED Alprazolam 0.25 Mg Tab 0.25 Mg PO Q4H PRN Docusate Sodium 100 Mg Cap 200 Mg PO DAILY Clonazepam 0.5 Mg Tab 0.5 Mg PO BID Metoprolol Tartrate 25 Mg Tab 12.5 Mg PO DAILY Mobic (Meloxicam) 7.5 Mg Tab 7.5 Mg PO DAILY Lexapro (Escitalopram Oxalate) 20 Mg Tab 20 Mg PO DAILY Magnesium Citrate 100 Mg Tab 100 Mg PO BID Folic Acid 0.4 Mg Tab 400 Mcg PO DAILY Calcium Carbonate 1,500 Mg Tab 1,500 Mg PO BID 1,500 mg calcium carbonate (600 mg elemental calcium) Omeprazole 20 Mg Tab 20 Mg PO DAILY Multi-Vitamin Daily (Multiple Vitamin) 1 Tab Tab 1 Tab PO DAILY B12 (Cyanocobalamin) 1,000 Mcg Tab 1 Tab PO DAILY Wellbutrin Xl 24 HR (Bupropion HCl) 300 Mg Tab 300 Mg PO DAILY Physical Exam Vital Signs Vital Signs Date Time Temp Pulse Resp B/P (MAP) Pulse Ox O2 Delivery O2 Flow Rate FiO2 02/11/17 14:15 94 100 02/11/17 08:38 96.2 59 17 120/54 (76) 02/11/17 07:07 02/11/17 07:02 97.9 67 18 133/66 (88) 98 Room Air 02/11/17 05:19 57 18 149/59 (89) 98 Room Air 02/11/17 03:35 53 20 147/68 (94) 96 02/11/17 03:30 55 18 147/68 (94) 98 Room Air 02/11/17 03:07 20 02/11/17 02:39 97.6 63 12 140/74 (96) 98 Physical Exam Gen: Sedated. Head: Normal. Neck: Supple, orally intubated. Lungs: Diffuse rhonchi and light wheezes. Good air movement. [place] frothy watery secretions Heart: NL S1S2, RRR. No JVD. Abdomen: Post surgical, nondistended. Quiet. Extremities: Tepid, well perfused. Neuro: Moves 4 limbs and opens eyes to stimulation. Laboratory Laboratory Tests Test 02/11/17 03:00 02/11/17 04:32 02/11/17 14:52 White Blood Count 7.3 Red Blood Count 4.90 Hemoglobin 13.5 Hematocrit 42.5 Mean Corpuscular Volume 86.8 Mean Corpuscular Hemoglobin 27.5 Mean Corpuscular Hemoglobin Concent 31.7 Red Cell Distribution Width 12.6 Platelet Count 180 Mean Platelet Volume 8.9 Neutrophils (%) (Auto) 68.9 Lymphocytes (%) (Auto) 25.8 Monocytes (%) (Auto) 3.3 Eosinophils (%) (Auto) 1.3 Basophils (%) (Auto) 0.7 Neutrophils # (Auto) 5.0 Lymphocytes # (Auto) 1.9 Monocytes # (Auto) 0.2 Eosinophils # (Auto) 0.1 Basophils # (Auto) 0.1 CBC Comment DIFF FINAL Differential Comment Blood Urea Nitrogen 18 Creatinine 0.59 Random Glucose 163 Total Protein 7.0 Albumin 3.4 Calcium Level 8.8 Alkaline Phosphatase 118 Aspartate Amino Transf (AST/SGOT) 14 Alanine Aminotransferase (ALT/SGPT) 24 Total Bilirubin 0.7 Sodium Level 139 Potassium Level 4.1 Chloride Level 106 Carbon Dioxide Level 25.0 Anion Gap 8 Estimat Glomerular Filtration Rate 109 Lipase 170 Urine Collection Type CLEAN CATCH Urine Color YELLOW Urine Turbidity HAZY Urine pH 6.0 Urine Specific [place] 1.030 Urine Protein NEG Urine Glucose (UA) NEG Urine Ketones NEG Urine Occult Blood SMALL Urine Nitrite POS Urine Bilirubin NEG Urine Leukocyte Esterase TRACE Urine RBC 0-3 Urine WBC 25-49 Urine Squamous Epithelial Cells 4-6 Urine Bacteria MANY Microscopic Urinalysis Comment CULTURE INDICATED Blood Gas Puncture Site ART LINE Blood Gas HCO3 21 Blood Gas Base Excess -5.0 Blood Gas Oxygen Saturation 93 Arterial Blood pH 7.28 Arterial Blood Partial Pressure CO2 45 Arterial Blood Partial Pressure O2 172 Arterial Blood Carboxyhemoglobin 0.3 Arterial Blood Methemoglobin 3.2 Oxygen Delivery Device VENTILATOR Blood Gas Ventilator Setting 500/16/+10/1.0 Blood Gas Inspired Oxygen 100 Date/Time Source Procedure Growth Status 02/11/17 04:32 Urine Clean Catch Urine Culture Pending Received Result Diagram: 02/11/1729902/11/17299 Caprini VTE Risk Assessment Caprini VTE Risk Assessment: Mod/High Risk (score >= 2) Caprini Risk Assessment Model Point Value = 1 Point Value = 2 Point Value = 3 Point Value = 5 Age 41-60 Minor surgery BMI > 25 kg/m2 Swollen legs Varicose veins or History of unexplained or recurrent spontaneous Oral contraceptives or hormone replacement Sepsis (< 1 month) Serious lung disease, including pneumonia (< 1 month) Abnormal pulmonary function Acute myocardial infarction Congestive heart failure (< 1 month) History of inflammatory bowel disease Medical patient at bed rest Age 61-74 Arthroscopic surgery Major open surgery (> 45 min) Laparoscopic surgery (> 45 min) Malignancy Confined to bed (> 72 hours) Immobilizing plaster cast Central venous access Age >= 75 History of VTE Family history of VTE Factor V Leiden Prothrombin [id number] Lupus anticoagulant Anticardiolipin antibodies Elevated serum homocysteine Heparin-induced thrombocytopenia Other congenital or acquired thrombophilia Stroke (< 1 month) Elective arthroplasty Hip, pelvis, or leg fracture Acute spinal cord injury (< 1 month) Prophylaxis Regimen Total Risk Factor Score Risk Level Prophylaxis Regimen 0-1 Low Early ambulation 2 Moderate Order ONE of the following: *Sequential Compression Device (SCD) *Heparin 5000 units SQ BID 3-4 Higher Order ONE of the following medications: *Heparin 5000 units SQ TID *Enoxaparin/Lovenox 40 mg SQ daily (WT < 150 kg, CrCl > 30 mL/min) *Enoxaparin/Lovenox 30 mg SQ daily (WT < 150 kg, CrCl > 10-29 mL/min) *Enoxaparin/Lovenox 30 mg SQ BID (WT < 150 kg, CrCl > 30 mL/min) AND/OR *Sequential Compression Device (SCD) 5 or more Highest Order ONE of the following medications: *Heparin 5000 units SQ TID (Preferred with Epidurals) *Enoxaparin/Lovenox 40 mg SQ daily (WT < 150 kg, CrCl > 30 mL/min) *Enoxaparin/Lovenox 30 mg SQ daily (WT < 150 kg, CrCl > 10-29 mL/min) *Enoxaparin/Lovenox 30 mg SQ BID (WT < 150 kg, CrCl > 30 mL/min) AND *Sequential Compression Device (SCD) Assessment and Plan Assessment and Plan Assessment: 1. Hypoxemic Respiratory Failure 2. Aspiration Pneumonitis. 3. Morbid Obesity. 4. SBO -> s/p lysis of adhesions. Plan: Respiratory - PRVC vent mode, PEEP 10. APRV if can't oxygenate. - Consider diuresis but appears to be noncardiac edema. - Clindamycin, Ceftriaxone (for urine) CV - Insertion CVL, follow CVP. Renal - maintenance iv fluid. GI - NG to LIS (s/p gastric bypass 5 years ago - do not reinsert) - Hopper to CBD ID - UTI on arrival to ED - ceftriaxone Px - Lovenox and pepcid Chronic benzo use - Use versed drip (She responded well to versed but propofol was ineffective at 50 mics) Wellbutrin and lexapro - Continue to avoid withdrawal problems Overall impression: Critically ill with hypoxemic respiratory failure after large aspiration in OR. Critical care 46 mins aside from procedures Ian Cooper MD Feb 11, 2017 15:38
--- NOTE | 2017-02-11 15:57 | RADRPT ---
EXAM DATE/TIME: 02/11/2017 15:44 [facility] COMPARISON: CHEST SINGLE AP, February 11, 2017, 14:37. INDICATIONS : Left subclavian central line placement. MEDICAL HISTORY : Hypertension. Renal calculi. SURGICAL HISTORY : Appendectomy. Hysterectomy. Colon resection. ENCOUNTER: Subsequent ACUITY: 1 day PAIN SCORE: Non-responsive. LOCATION: Bilateral chest FINDINGS: There is significant worsening of airspace process bilaterally most likely worsening pulmonary edema. Left subclavian line is present with tip overlapping the expected region of the SVC. ET tube, and NG tube have not changed. No definite pneumothorax is seen for technique. CONCLUSION: Significant worsening of pulmonary edema. Bird Newberry MD on February 11, 2017 at 15:54 Board Certified Radiologist. This report was verified electronically.
--- NOTE | 2017-02-11 16:40 | PD.PROCEDR ---
Procedure Note Procedure Dx: Poor venous access OP: Insertion Left subclavian central venous line ([id number]) Procedure: Time out. Left chest prepped and draped. Left subclavian vein cannulated with 20 gauge spinal needle and wire easily advanced. Catheter passed over wire to 18 cm. Lumens aspirated and flushed. Dressing applied. CXR pending. Nurse instructed to use line immediately due to urgency of situation. Ian Cooper MD Feb 11, 2017 16:40
[2017-02-11] MEDS ORDERED: PILL SPLITTER OTHER PRN (16:45)
[2017-02-11] MEDS: MIDAZOLAM 100 MG/100 ML INJ 100 ML IV PRN (16:47)
[2017-02-11] MEDS: PROPOFOL 1000 MG/100 ML INJ 100 ML IV PRN ×2 (16:47→21:25)
[2017-02-11] MEDS: CLINDAMYCIN 900 MG/NS PREMIX 50 ML IV SCH (17:23)
[2017-02-11] MEDS ORDERED: POTASSIUM CHLORIDE 25 MEQ EFFERVESCENT TAB PO PRN (17:30)
[2017-02-11] MEDS ORDERED: POTASSIUM CHLOR 40 MEQ PREMIX 100 ML IV PRN ×2 (17:30)
[2017-02-11] MEDS ORDERED: SODIUM PHOSPHATE INJ 30 MMOL in SODIUM CHLOR 0.9% 250 ML INJ 240 ML IV PRN (17:30)
[2017-02-11] MEDS ORDERED: MAGNESIUM SULFATE INJ 4 GM in SODIUM CHLORIDE 0.9% INJ 92 ML IV PRN (17:30)
[2017-02-11] MEDS ORDERED: POTASSIUM CHLOR 20 MEQ PREMIX 100 ML IV PRN ×2 (17:30)
[2017-02-11] MEDS ORDERED: POTASSIUM PHOSPHATE INJ 30 MMOL in SODIUM CHLOR 0.9% 250 ML INJ 250 ML IV PRN (17:30)
[2017-02-11] MEDS ORDERED: POTASSIUM PHOSPHATE MONOBASIC 500 MG TAB PO PRN (17:30)
[2017-02-11] MEDS ORDERED: POTASSIUM PHOSPHATE MONOBASIC 500 MG TAB PO/TUBE PRN (17:30)
[2017-02-11] MEDS ORDERED: MAGNESIUM SULFATE INJ 2 GM in SODIUM CHLORIDE 0.9% INJ 96 ML IV PRN (17:30)
[2017-02-11] MEDS ORDERED: MAGNESIUM OXIDE 400 MG TAB PO PRN (17:30)
[2017-02-11] MEDS: CHLORHEXIDINE 0.12% (ORAL KIT) 15 ML CUP MT SCH (20:00)
[2017-02-11] MEDS: SODIUM CHLORIDE 0.9% FLUSH 10 ML FLUSH IV FLUSH SCH (21:00)
[2017-02-11] MEDS: DOCUSATE SODIUM 100 MG CAP PO SCH (21:00)
[2017-02-11] MEDS: FAMOTIDINE 20 MG/2 ML VIAL IV PUSH SCH (21:25)
[2017-02-12] VITALS (13 sets, daily range): BP systolic 100–135; BP diastolic 54–69; PULSE 83–94; RESP 16–20; TEMP 99.3–100.4; O2SAT 96–100
[2017-02-12] MEDS: CLINDAMYCIN 900 MG/NS PREMIX 50 ML IV SCH ×4 (00:24→22:47)
[2017-02-12] MEDS ORDERED: NOREPINEPHRINE-DEXTROSE DRIP 250 ML IV ONE (01:51)
[2017-02-12] MEDS: PROPOFOL 1000 MG/100 ML INJ 100 ML IV PRN ×4 (04:10→22:35)
[2017-02-12] MEDS ORDERED: NOREPINEPHRINE 4 MG/D5W 250 ML IV PRN (04:15)
[2017-02-12] MEDS: SODIUM CHLOR 0.9% 1000 ML INJ 1,000 ML IV SCH ×2 (04:15→15:55)
[2017-02-12 05:14] LABS: AUTOMATED NEUTROPHIL # 5.4 TH/MM3 (1.8-7.7); BASOPHIL % 0.4 % (0.0-2.0); EOSINOPHIL % 0.7 % (0.0-4.0); HEMATOCRIT 35.7 % (35.0-46.0); LYMPH % 9.6 % (9.0-44.0); LYMPHOCYTE # 0.6 TH/MM3 (1.0-4.8); MEAN CELL VOLUME 88.6 FL (80.0-100.0); MEAN CORPUSCULAR HEMOGLOBIN 29.7 PG (27.0-34.0); MEAN CORPUSCULAR HGB CONC 33.6 % (32.0-36.0); MEAN PLATELET VOLUME 8.7 FL (7.0-11.0); MONO % 3.4 % (0.0-8.0); MONOCYTE # 0.2 TH/MM3 (0-0.9); NEUT % 85.9 % (16.0-70.0); PLATELET COUNT 152 TH/MM3 (150-450); RED BLOOD COUNT 4.03 MIL/MM3 (4.00-5.30); RED CELL DISTRIBUTION WIDTH 13.4 % (11.6-17.2); WHITE BLOOD COUNT 6.3 TH/MM3 (4.0-11.0)
[2017-02-12] MEDS: MIDAZOLAM 100 MG/100 ML INJ 100 ML IV PRN (05:21)
[2017-02-12] MEDS: PCA - TOTAL MG MORPHINE DELIVERED PER SHIFT SCH ×3 (05:22→19:21)
[2017-02-12] MEDS: fentaNYL DRIP 250 ML IV PRN (05:22)
[2017-02-12 05:44] LABS: BICARBONATE 24.9 MEQ/L (21.0-32.0); CREATININE 0.64 MG/DL (0.50-1.00)
[2017-02-12 05:56] LABS: TOTAL PROTEIN 5.2 GM/DL (6.4-8.2)
--- NOTE | 2017-02-12 06:09 | RADRPT ---
EXAM DATE/TIME: 02/12/2017 05:27 [facility] COMPARISON: CHEST SINGLE AP, February 11, 2017, 15:44. INDICATIONS : Shortness of breath, possible pulmonary disease. MEDICAL HISTORY : Hypertension. Renal calculi. SURGICAL HISTORY : Appendectomy. Hysterectomy. Colon resection. ENCOUNTER: Subsequent ACUITY: 1 week PAIN SCORE: Non-responsive. LOCATION: Bilateral chest FINDINGS: A single portable frontal view of the chest shows diffuse bilateral pulmonary infiltrates which are u nchanged. No effusions. Heart upper limits of normal in terms of size. Endotracheal tube tip 2 cm fro m the unruly. Left subclavian central line. Nasogastric tube. CONCLUSION: Unchanged diffuse bilateral pulmonary infiltrates. Shiva Wilkerson Jr., MD on February 12, 2017 at 6:07 Board Certified Radiologist. This report was verified electronically.
[2017-02-12] MEDS: SODIUM CHLORIDE 0.9% FLUSH 10 ML FLUSH IV FLUSH SCH ×2 (07:52→20:09)
[2017-02-12] MEDS: CHLORHEXIDINE 0.12% (ORAL KIT) 15 ML CUP MT SCH ×2 (08:00→20:09)
[2017-02-12] MEDS: FAMOTIDINE 20 MG/2 ML VIAL IV PUSH SCH ×2 (08:48→20:10)
[2017-02-12] MEDS: buPROPion HCL 150 MG SUSTAINED RELEASE TAB PO SCH (09:00)
[2017-02-12] MEDS: ESCITALOPRAM OXALATE 20 MG TAB PO SCH (09:00)
[2017-02-12] MEDS: METOPROLOL TARTRATE 25 MG TAB PO SCH (09:00)
[2017-02-12] MEDS: DOCUSATE SODIUM 100 MG CAP PO SCH ×2 (09:00→19:21)
--- NOTE | 2017-02-12 09:07 | HHI.PR ---
Subjective Subjective Notes on vent sedated Objective Vitals/I&O Vital Signs Date Time Temp Pulse Resp B/P (MAP) Pulse Ox O2 Delivery O2 Flow Rate FiO2 02/12/17 04:42 99 100 02/12/17 04:00 99.8 94 18 114/54 (74) 02/11/17 07:02 Room Air Labs Laboratory Tests Test 02/11/17 14:52 02/11/17 20:05 02/12/17 04:48 02/12/17 04:50 Blood Gas Puncture Site ART LINE ART LINE ART LINE Blood Gas HCO3 21 21 24 Blood Gas Base Excess -5.0 -3.9 -1.1 Blood Gas Oxygen Saturation 93 93 93 Arterial Blood pH 7.28 7.33 7.34 Arterial Blood Partial Pressure CO2 45 41 46 Arterial Blood Partial Pressure O2 172 Arterial Blood Carboxyhemoglobin 0.3 0.2 0.2 Arterial Blood Methemoglobin 3.2 3.6 3.7 Oxygen Delivery Device VENTILATOR VENTILATOR VENTILATOR Blood Gas Ventilator Setting 500/16/+10/1.0 16/500/IT1.0/10PEEP 16/500/10PEEP/IT0.9 Blood Gas Inspired Oxygen 100 100 100 Blood Gas Patient Temperature 98.6 98.6 Arterial Blood Oxygen Content 17.7 17.9 White Blood Count 6.3 Red Blood Count 4.03 Hemoglobin 12.0 Hematocrit 35.7 Mean Corpuscular Volume 88.6 Mean Corpuscular Hemoglobin 29.7 Mean Corpuscular Hemoglobin Concent 33.6 Red Cell Distribution Width 13.4 Platelet Count 152 Mean Platelet Volume 8.7 Neutrophils (%) (Auto) 85.9 Lymphocytes (%) (Auto) 9.6 Monocytes (%) (Auto) 3.4 Eosinophils (%) (Auto) 0.7 Basophils (%) (Auto) 0.4 Neutrophils # (Auto) 5.4 Lymphocytes # (Auto) 0.6 Monocytes # (Auto) 0.2 Eosinophils # (Auto) 0.0 Basophils # (Auto) 0.0 CBC Comment DIFF FINAL Differential Comment Blood Urea Nitrogen 18 Creatinine 0.64 Random Glucose 242 Total Protein 5.2 Calcium Level 7.0 Sodium Level 140 Potassium Level 4.3 Chloride Level 107 Carbon Dioxide Level 24.9 Anion Gap 8 Estimat Glomerular Filtration Rate 99 Protein Corrected Calcium 8.0 Date/Time Source Procedure Growth Status 02/11/17 04:32 Urine Clean Catch Urine Culture Pending Received Radiology Last Impressions Chest X-Ray 02/12/17 0400 Signed Impressions: Service Date/Time: Sunday, February 12, 2017 05:27 - CONCLUSION: Unchanged diffuse bilateral pulmonary infiltrates. Shiva Wilkerson Jr., MD Abdomen/Pelvis CT 02/11/17 0316 Signed Impressions: Service Date/Time: Saturday, February 11, 2017 03:45 - CONCLUSION: 1. Previous gastric bypass. 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 2. Recurrent umbilical hernia containing a short segment of distal small bowel, not acutely contributory. Zak Guerrero MD Lungs: Upper airway course sound Abdomen: Post-op tenderness Extremities: Perfused Wound Wound : Wound Location: Abdomen Dressing: Dry A/P Assessment and Plan s/p extensive ASH cont vent support cont NPO Lovenox fluoroscopic positioning of ngt in am Mamadou Can MD Feb 12, 2017 09:07
[2017-02-12] MEDS ORDERED: ENOXAPARIN SODIUM 40 MG/0.4 ML SYRINGE SQ SCH (13:00)
[2017-02-12] MEDS: ENOXAPARIN SODIUM 40 MG/0.4 ML SYRINGE SQ SCH (13:19)
--- NOTE | 2017-02-12 14:46 | HHI.CCPN ---
Subjective Remarks/Hospital Course 46 y/o woman has developed abdominal pain and CT scan reveals small bowel obstruction, likely from adhesions related to prior surgery. She has a complicated medical history including morbid obesity and s/p yvon-en-y gastric bypass surgery. In the OR the patient sustained an aspiration followed by hypoxemia requiring increased ventilator support and FiO2. I met her on her arrival to the [facility] and discussed the case with Surgeon and Anesthesiologist at the bedside. SUBJ 02/12/17: Patient remains intubated sedated. Regarding 60% FiO2 and 10 of PEEP. Chest x-ray showing bilateral infiltrates. Sputum culture requested. Urine culture with gram-negative estee. Ceftriaxone DC'd and cefepime started Objective Vital Signs Date Time Temp Pulse Resp B/P (MAP) Pulse Ox O2 Delivery O2 Flow Rate FiO2 02/12/17 12:00 70 02/12/17 12:00 99.3 86 19 114/54 (74) 100 02/11/17 07:02 Room Air Intake and Output 02/12/17 02/12/17 02/13/17 08:00 16:00 00:00 Intake Total 1643 ml Output Total 450 ml Balance 1193 ml Result Diagram: 02/12/17 0450 02/12/17 0450 Other Results Laboratory Tests Test 02/11/17 14:52 02/11/17 20:05 02/12/17 04:48 Blood Gas Puncture Site ART LINE ART LINE ART LINE Blood Gas HCO3 21 mmol/L (22-26) 21 mmol/L (22-26) 24 mmol/L (22-26) Blood Gas Base Excess -5.0 mmol/L (-2-2) -3.9 mmol/L (-2-2) -1.1 mmol/L (-2-2) Blood Gas Oxygen Saturation 93 % (90-100) 93 % (90-100) 93 % (90-100) Arterial Blood pH 7.28 (7.380-7.420) 7.33 (7.380-7.420) 7.34 (7.380-7.420) Arterial Blood Partial Pressure CO2 45 mmHg (38-42) 41 mmHg (38-42) 46 mmHg (38-42) Arterial Blood Partial Pressure O2 172 mmHg (61-120) mmHg (61-120) mmHg (61-120) Arterial Blood Carboxyhemoglobin 0.3 % (0-4) 0.2 % (0-4) 0.2 % (0-4) Arterial Blood Methemoglobin 3.2 % (0-2) 3.6 % (0-2) 3.7 % (0-2) Oxygen Delivery Device VENTILATOR VENTILATOR VENTILATOR Blood Gas Ventilator Setting 500/16/+10/1.0 16/500/IT1.0/10PEEP 16/500/10PEEP/IT0.9 Blood Gas Inspired Oxygen 100 % 100 % 100 % Blood Gas Patient Temperature 98.6 98.6 Arterial Blood Oxygen Content 17.7 Vol % (12.0-20.0) 17.9 Vol % (12.0-20.0) Objective Remarks Gen: Sedated. Wakes up easily Head: Normal. Neck: Supple, orally intubated. Lungs: Diffuse rhonchi and light wheezes. Good air movement. Heart: NL S1S2, RRR. No JVD. Abdomen: Post surgical, nondistended. Quiet. Extremities: Well perfused. Neuro: Moves 4 limbs and opens eyes to stimulation. Follows commands Urinary Catheter: Yes Assessment to: Continue A/P Assessment and Plan Assessment: 1. Acute Hypoxemic Respiratory Failure 2. Aspiration Pneumonitis. 3. Morbid Obesity. 4. SBO -> s/p lysis of adhesions. Plan: Respiratory - PRVC vent mode, PEEP 10. Wean Fio2 to 50% if tolerated - Consider diuresis but appears to be noncardiac edema. - Clindamycin, Ceftriaxone (for urine)-change to cefepime q8h CV - CVL, follow CVP. - Start diuresis in next 24 hours Renal - maintenance iv fluid. GI - NG to LIS (s/p gastric bypass 5 years ago - do not reinsert) - Post op management per Dr. Juan José CAO - Hopper to CBD ID - UTI on arrival to ED - ceftriaxone-cange to Cefepime until cultures are available Px - Lovenox and pepcid Chronic benzo use - Use versed drip (She responded well to versed but propofol was ineffective at 50 mics) Wellbutrin and lexapro - Continue to avoid withdrawal problems Overall impression: Critically ill with hypoxemic respiratory failure after large aspiration in OR. Critical care 32 mins aside from procedures Ketan Crespo MD Feb 12, 2017 14:46
[2017-02-12] MEDS: CEFEPIME INJ 2,000 MG in SODIUM CHLORIDE 0.9% INJ 100 ML IV SCH ×2 (17:11→20:10)
[2017-02-13] VITALS (11 sets, daily range): BP systolic 102–129; BP diastolic 51–59; PULSE 73–86; RESP 16–20; TEMP 98.3–100.3; O2SAT 96–99
[2017-02-13] MEDS: ENOXAPARIN SODIUM 40 MG/0.4 ML SYRINGE SQ SCH ×2 (01:30→13:10)
[2017-02-13] MEDS: SODIUM CHLOR 0.9% 1000 ML INJ 1,000 ML IV SCH (01:31)
[2017-02-13] MEDS: PCA - TOTAL MG MORPHINE DELIVERED PER SHIFT SCH ×3 (04:29→22:00)
[2017-02-13] MEDS: CEFEPIME INJ 2,000 MG in SODIUM CHLORIDE 0.9% INJ 100 ML IV SCH ×3 (04:36→21:09)
[2017-02-13] MEDS: PROPOFOL 1000 MG/100 ML INJ 100 ML IV PRN ×2 (06:09→17:21)
[2017-02-13] MEDS: fentaNYL DRIP 250 ML IV PRN (06:10)
[2017-02-13] MEDS: SODIUM CHLORIDE 0.9% FLUSH 10 ML FLUSH IV FLUSH SCH ×2 (07:34→21:00)
[2017-02-13] MEDS: CHLORHEXIDINE 0.12% (ORAL KIT) 15 ML CUP MT SCH ×2 (08:00→20:00)
[2017-02-13] MEDS ORDERED: FUROSEMIDE 40 MG/4 ML VIAL IV PUSH ONE (08:30)
[2017-02-13] MEDS ORDERED: RESP: ALBUTEROL 2.5 MG/IPRATROPIUM 0.5 MG NEB (PRN) NEB (08:30)
[2017-02-13] MEDS: RESP: ALBUTEROL 2.5 MG/IPRATROPIUM 0.5 MG NEB (SCH) NEB ×5 (08:40→23:38)
[2017-02-13] MEDS: METOPROLOL TARTRATE 25 MG TAB PO SCH (09:00)
[2017-02-13] MEDS: buPROPion HCL 150 MG SUSTAINED RELEASE TAB PO SCH (09:00)
[2017-02-13] MEDS: ESCITALOPRAM OXALATE 20 MG TAB PO SCH (09:00)
[2017-02-13] MEDS: DOCUSATE SODIUM 100 MG CAP PO SCH ×2 (09:00→21:00)
[2017-02-13] MEDS: CLINDAMYCIN 900 MG/NS PREMIX 50 ML IV SCH ×2 (09:06→16:00)
[2017-02-13] MEDS: FAMOTIDINE 20 MG/2 ML VIAL IV PUSH SCH ×2 (09:06→21:08)
--- NOTE | 2017-02-13 09:23 | RADRPT ---
EXAM DATE/TIME: 02/13/2017 08:17 [facility] COMPARISON: CHEST SINGLE AP, February 12, 2017, 5:27. INDICATIONS : Respiratory failure. MEDICAL HISTORY : Hypertension. Renal calculi. SURGICAL HISTORY : Appendectomy. Hysterectomy.Colon resection.Gastric bypass ENCOUNTER: Subsequent ACUITY: 4 - 6 days PAIN SCORE: Non-responsive. LOCATION: Bilateral chest FINDINGS: Persistent diffuse pulmonary infiltrates are noted and are slightly worse than on the previous examin ation. Multiple tubes and lines are stable. CONCLUSION: Slight worsening of the diffuse pulmonary infiltrates bilaterally. Shiraz Garcia MD on February 13, 2017 at 9:19 Board Certified Radiologist. This report was verified electronically.
[2017-02-13] MEDS: POTASSIUM CHLORIDE 25 MEQ EFFERVESCENT TAB NG SCH (10:15)
--- NOTE | 2017-02-13 10:46 | HHI.CCPN ---
Subjective Remarks/Hospital Course 46 y/o woman has developed abdominal pain and CT scan reveals small bowel obstruction, likely from adhesions related to prior surgery. She has a complicated medical history including morbid obesity and s/p yvon-en-y gastric bypass surgery. In the OR the patient sustained an aspiration followed by hypoxemia requiring increased ventilator support and FiO2. I met her on her arrival to the [facility] and discussed the case with Surgeon and Anesthesiologist at the bedside. SUBJ 02/12/17: Patient remains intubated sedated. Regarding 60% FiO2 and 10 of PEEP. Chest x-ray showing bilateral infiltrates. Sputum culture requested. Urine culture with gram-negative estee. Ceftriaxone DC'd and cefepime started 02/13/17: FiO2 currently at 50% and PEEP at 10. Chest x-ray slight worsening of bilateral infiltrates but clinically stable. Sputum Gram stain with GPC in pairs urine culture Escherichia coli. Continue clindamycin and cefepime for now. Positive fluid balance-start IV Lasix 40 mg now and every 12 hours with potassium replacement Objective Vital Signs Date Time Temp Pulse Resp B/P (MAP) Pulse Ox O2 Delivery O2 Flow Rate FiO2 02/13/17 09:53 45 02/13/17 08:41 97 02/13/17 08:00 99.5 86 18 126/56 (79) 02/11/17 07:02 Room Air Intake and Output 02/13/17 02/13/17 02/14/17 08:00 16:00 00:00 Intake Total 1450 ml Output Total 475 ml Balance 975 ml Result Diagram: 02/12/17 0450 02/12/17 0450 Other Results Microbiology Date/Time Source Procedure Growth Status 02/11/17 04:32 Urine Clean Catch Urine Culture - Final Escherichia Coli Complete Laboratory Tests Test 02/13/17 03:35 Blood Gas Puncture Site ART LINE Blood Gas Patient Temperature 98.6 Blood Gas HCO3 23 mmol/L (22-26) Blood Gas Base Excess -1.6 mmol/L (-2-2) Blood Gas Oxygen Saturation 92 % (90-100) Arterial Blood pH 7.34 (7.380-7.420) Arterial Blood Partial Pressure CO2 44 mmHg (38-42) Arterial Blood Partial Pressure O2 109 mmHg (61-120) Arterial Blood Oxygen Content 13.0 Vol % (12.0-20.0) Arterial Blood Carboxyhemoglobin 0.8 % (0-4) Arterial Blood Methemoglobin 3.4 % (0-2) Blood Gas Hemoglobin 9.9 G/DL (12.0-16.0) Oxygen Delivery Device VENTILATOR Blood Gas Ventilator Setting 16/500/IT 0.9/10PEEP Blood Gas Inspired Oxygen 50 % Objective Remarks Gen: Sedated. Wakes up easily Head: Normal. Neck: Supple, orally intubated. Lungs: Diffuse rhonchi and bilateral wheezes. Good air movement. Heart: NL S1S2, RRR. No JVD. Abdomen: Post surgical, nondistended. Quiet. Extremities: Well perfused. Neuro: Moves 4 limbs and opens eyes to stimulation. Follows commands A/P Assessment and Plan Assessment: Acute Hypoxemic Respiratory Failure Aspiration Pneumonia ARDS Severe sepsis UTI with E Coli Morbid Obesity. SBO -> s/p lysis of adhesions. Plan: Neuro: - Propofol, fentanyl, and Versed for sedation and vent synchrony - Daily sedation vacation - Chronic benzo use, Use versed drip - Wellbutrin and lexapro, continue to avoid withdrawal problems Respiratory - PRVC vent mode, PEEP 10. Wean Fio2 to 50% if tolerated. Reduce PEEP to 8, FiO2 to 45% - Diuresis and below - Clindamycin, cefepime - Start weaning trials if tolerated, patient is not ready for extubation - DuoNeb every 4 hours scheduled and when necessary CV - CVL, follow CVP. - Start diuresis IV Lasix 40 q12 - 2D Echo Renal - maintenance iv fluid-DC and start Lasix as above GI - NG to LIS (s/p gastric bypass 5 years ago - do not reinsert) - Post op management per Dr. Juan José Hopper to CBD ID - UTI on arrival to ED - Aspiration pneumonia - Continue clindamycin and cefepime Px - Lovenox and pepcid Overall impression: Critically ill with hypoxemic respiratory failure after large aspiration in OR. Critical care 32 mins aside from procedures Ketan Crespo MD Feb 13, 2017 10:46
--- NOTE | 2017-02-13 12:42 | HHI.PR ---
Subjective Subjective Notes Tolerating CPAP today Objective Vitals/I&O Vital Signs Date Time Temp Pulse Resp B/P (MAP) Pulse Ox O2 Delivery O2 Flow Rate FiO2 02/13/17 11:08 99 45 02/13/17 08:00 99.5 86 18 126/56 (79) 02/11/17 07:02 Room Air Labs Laboratory Tests Test 02/13/17 03:35 02/13/17 11:40 Blood Gas Puncture Site ART LINE ART LINE Blood Gas Patient Temperature 98.6 98.6 Blood Gas HCO3 23 26 Blood Gas Base Excess -1.6 1.2 Blood Gas Oxygen Saturation 92 93 Arterial Blood pH 7.34 7.37 Arterial Blood Partial Pressure CO2 44 46 Arterial Blood Partial Pressure O2 109 Arterial Blood Oxygen Content 13.0 Arterial Blood Carboxyhemoglobin 0.8 0.7 Arterial Blood Methemoglobin 3.4 3.4 Blood Gas Hemoglobin 9.9 10.8 Oxygen Delivery Device VENTILATOR VENTILATOR Blood Gas Ventilator Setting 16/500/IT 0.9/10PEEP CPAP/PS5/PEEP8 Blood Gas Inspired Oxygen 50 45 Date/Time Source Procedure Growth Status 02/12/17 16:25 Sputum Endotracheal Gram Stain - Final Resulted 02/12/17 16:25 Sputum Endotracheal Sputum Culture Pending Resulted 02/11/17 04:32 Urine Clean Catch Urine Culture - Final Escherichia Coli Complete Radiology Last Impressions Chest X-Ray 02/13/17 0000 Signed Impressions: Service Date/Time: Monday, February 13, 2017 08:17 - CONCLUSION: Slight worsening of the diffuse pulmonary infiltrates bilaterally. Shiraz Garcia MD Abdomen/Pelvis CT 02/11/17 0316 Signed Impressions: Service Date/Time: Saturday, February 11, 2017 03:45 - CONCLUSION: 1. Previous gastric bypass. 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 2. Recurrent umbilical hernia containing a short segment of distal small bowel, not acutely contributory. Zak Guerrero MD Cardiovascular: Regular Lungs: Rhonchi Abdomen: Other, BS normal Extremities: Perfused Wound Wound : Wound Location: Abdomen Appearance: Clean & Dry A/P Assessment and Plan 46yo F POD#2 lysis of adhesions/sbo -Consult radiology to reposition NGT, keep strict NPO until then -Continue to wean vent appropriately Monica Lee Feb 13, 2017 12:42
[2017-02-13] MEDS: FUROSEMIDE 40 MG/4 ML VIAL IV PUSH SCH (17:12)
[2017-02-14] VITALS (18 sets, daily range): BP systolic 113–141; BP diastolic 55–67; PULSE 68–82; RESP 16–19; TEMP 99.4–101.5; O2SAT 95–100
[2017-02-14] MEDS: CLINDAMYCIN 900 MG/NS PREMIX 50 ML IV SCH ×3 (00:42→15:27)
[2017-02-14] MEDS: ENOXAPARIN SODIUM 40 MG/0.4 ML SYRINGE SQ SCH ×2 (00:42→12:05)
[2017-02-14] MEDS: RESP: ALBUTEROL 2.5 MG/IPRATROPIUM 0.5 MG NEB (SCH) NEB ×6 (03:08→23:12)
[2017-02-14 04:43] LABS: AUTOMATED NEUTROPHIL # 3.4 TH/MM3 (1.8-7.7); BASOPHIL % 0.3 % (0.0-2.0); EOSINOPHIL # 0.1 TH/MM3 (0-0.4); EOSINOPHIL % 2.1 % (0.0-4.0); HEMATOCRIT 27.7 % (35.0-46.0); HEMOGLOBIN 9.6 GM/DL (11.6-15.3); LYMPH % 10.8 % (9.0-44.0); LYMPHOCYTE # 0.5 TH/MM3 (1.0-4.8); MEAN CELL VOLUME 87.1 FL (80.0-100.0); MEAN CORPUSCULAR HEMOGLOBIN 30.2 PG (27.0-34.0); MEAN CORPUSCULAR HGB CONC 34.7 % (32.0-36.0); MEAN PLATELET VOLUME 8.5 FL (7.0-11.0); MONO % 6.1 % (0.0-8.0); MONOCYTE # 0.3 TH/MM3 (0-0.9); NEUT % 80.7 % (16.0-70.0); PLATELET COUNT 117 TH/MM3 (150-450); RED BLOOD COUNT 3.18 MIL/MM3 (4.00-5.30); RED CELL DISTRIBUTION WIDTH 12.9 % (11.6-17.2); WHITE BLOOD COUNT 4.2 TH/MM3 (4.0-11.0)
[2017-02-14 05:06] LABS: ALT (GPT) 11 U/L (10-53); AST (GOT) 16 U/L (15-37); BLOOD UREA NITROGEN 10 MG/DL (7-18); CALCIUM 8.1 MG/DL (8.5-10.1); CHLORIDE 106 MEQ/L (98-107); GLOMERULAR FILTRATION RATE 170 ML/MIN (>89); GLUCOSE,RANDOM 167 MG/DL (74-106); MAGNESIUM 1.7 MG/DL (1.5-2.5); SODIUM (NA) 141 MEQ/L (136-145)
[2017-02-14 05:09] LABS: ALKALINE PHOSPHATASE 78 U/L (45-117); TOTAL BILIRUBIN ADULT 0.7 MG/DL (0.2-1.0); TOTAL PROTEIN 5.4 GM/DL (6.4-8.2)
[2017-02-14] MEDS: PCA - TOTAL MG MORPHINE DELIVERED PER SHIFT SCH ×3 (06:00→21:03)
[2017-02-14] MEDS: CEFEPIME INJ 2,000 MG in SODIUM CHLORIDE 0.9% INJ 100 ML IV SCH ×3 (06:00→21:02)
[2017-02-14] MEDS: PROPOFOL 1000 MG/100 ML INJ 100 ML IV PRN ×2 (06:23→15:13)
--- NOTE | 2017-02-14 06:23 | RADRPT ---
EXAM DATE/TIME: 02/14/2017 05:43 [facility] COMPARISON: CHEST SINGLE AP, February 13, 2017, 8:17. INDICATIONS : Respiratory distress. MEDICAL HISTORY : Hypertension. Renal calculi. SURGICAL HISTORY : Appendectomy. Hysterectomy.Colon resection.Gastric bypass ENCOUNTER: Subsequent ACUITY: 4 - 6 days PAIN SCORE: Non-responsive. LOCATION: Bilateral chest FINDINGS: A single portable frontal view of the chest shows the tip of the endotracheal tube lies in the meters proximal to the unruly. Left subclavian central line and nasogastric tube noted. Diffuse bilateral p ulmonary infiltrates with no significant change. No effusions. Heart is at the upper limits of normal in terms of size. CONCLUSION: No significant change in the diffuse bilateral pulmonary infiltrates. Shiva Wilkerson Jr., MD on February 14, 2017 at 6:21 Board Certified Radiologist. This report was verified electronically.
--- NOTE | 2017-02-14 07:45 | HHI.CCPN ---
Subjective Remarks/Hospital Course 46 y/o woman has developed abdominal pain and CT scan reveals small bowel obstruction, likely from adhesions related to prior surgery. She has a complicated medical history including morbid obesity and s/p yvon-en-y gastric bypass surgery. In the OR the patient sustained an aspiration followed by hypoxemia requiring increased ventilator support and FiO2. I met her on her arrival to the [facility] and discussed the case with Surgeon and Anesthesiologist at the bedside. SUBJ 02/12/17: Patient remains intubated sedated. Regarding 60% FiO2 and 10 of PEEP. Chest x-ray showing bilateral infiltrates. Sputum culture requested. Urine culture with gram-negative estee. Ceftriaxone DC'd and cefepime started 02/13/17: FiO2 currently at 50% and PEEP at 10. Chest x-ray slight worsening of bilateral infiltrates but clinically stable. Sputum Gram stain with GPC in pairs urine culture Escherichia coli. Continue clindamycin and cefepime for now. Positive fluid balance-start IV Lasix 40 mg now and every 12 hours with potassium replacement 02/14/17: Remains intubated sedated, urine output excellent with IV Lasix. Chest x-ray with persistent bilateral infiltrates. Spiking fever 101.5, repeat morales culture, Check CT of the chest today. IR to advance/position NGT Objective Vital Signs Date Time Temp Pulse Resp B/P (MAP) Pulse Ox O2 Delivery O2 Flow Rate FiO2 02/14/17 07:40 97 40 02/14/17 04:00 100.2 76 16 125/60 (81) 02/11/17 07:02 Room Air Intake and Output 02/14/17 02/14/17 02/14/17 07:59 15:59 23:59 Output Total 1100 ml Balance -1100 ml Result Diagram: 02/14/17 0429 02/14/17 0429 Other Results Laboratory Tests Test 02/13/17 11:40 Blood Gas Puncture Site ART LINE Blood Gas Patient Temperature 98.6 Blood Gas HCO3 26 mmol/L (22-26) Blood Gas Base Excess 1.2 mmol/L (-2-2) Blood Gas Oxygen Saturation 93 % (90-100) Arterial Blood pH 7.37 (7.380-7.420) Arterial Blood Partial Pressure CO2 46 mmHg (38-42) Arterial Blood Partial Pressure O2 mmHg (61-120) Arterial Blood Oxygen Content Vol % (12.0-20.0) Arterial Blood Carboxyhemoglobin 0.7 % (0-4) Arterial Blood Methemoglobin 3.4 % (0-2) Blood Gas Hemoglobin 10.8 G/DL (12.0-16.0) Oxygen Delivery Device VENTILATOR Blood Gas Ventilator Setting CPAP/PS5/PEEP8 Blood Gas Inspired Oxygen 45 % Objective Remarks Gen: Sedated. Wakes up easily Head: Normal. Neck: Supple, orally intubated. Lungs: Improved bilateral wheezes. Good air movement. Heart: NL S1S2, RRR. No JVD. Abdomen: Post surgical, nondistended. Quiet. Extremities: Well perfused. Neuro: Moves 4 limbs and opens eyes to stimulation. Follows commands A/P Assessment and Plan Assessment: Acute Hypoxemic Respiratory Failure Aspiration Pneumonia ARDS Severe sepsis UTI with E Coli Morbid Obesity. SBO -> s/p lysis of adhesions. Plan: Neuro: - Propofol, fentanyl, for sedation and vent synchrony - Daily sedation vacation - Chronic benzo use, Use versed drip as needed - Wellbutrin and Lexapro, continue to avoid withdrawal problems once Ng repositioned Respiratory - PRVC vent mode, PEEP 8-wean to 5. Wean Fio2 to 40% - Diuresis as below - Clindamycin, cefepime - SBT without extubation - CXR showing significant bilateral infiltrates-check CT of the chest today - DuoNeb every 4 hours scheduled and when necessary CV - IV Lasix 40 q12 - 2D Echo pending - Hemodynamically remains stable Renal - maintenance iv fluid-DC and start Lasix as above - Urine output excellent on Lasix GI - NG to LIS (s/p gastric bypass 5 years ago - do not reinsert) - NG to be advanced under flouro - Post op management per Dr. Can ID - UTI on arrival to ED - Aspiration pneumonia - Continue clindamycin and cefepime - Repeat sputum culture Px - Lovenox and pepcid Overall impression: Critically ill with hypoxemic respiratory failure after large aspiration in OR. Developed ARDS, now stable to improving Critical care 30 mins aside from procedures Ketan Crespo MD Feb 14, 2017 07:45
[2017-02-14] MEDS: FUROSEMIDE 40 MG/4 ML VIAL IV PUSH SCH ×2 (08:06→16:36)
[2017-02-14] MEDS: FAMOTIDINE 20 MG/2 ML VIAL IV PUSH SCH ×2 (08:06→21:02)
[2017-02-14] MEDS: CHLORHEXIDINE 0.12% (ORAL KIT) 15 ML CUP MT SCH ×2 (08:16→19:44)
[2017-02-14] MEDS: SODIUM CHLORIDE 0.9% FLUSH 10 ML FLUSH IV FLUSH SCH ×2 (08:16→21:00)
[2017-02-14] MEDS: buPROPion HCL 150 MG SUSTAINED RELEASE TAB PO SCH (08:17)
[2017-02-14] MEDS: METOPROLOL TARTRATE 25 MG TAB PO SCH (08:17)
[2017-02-14] MEDS: DOCUSATE SODIUM 100 MG CAP PO SCH ×2 (08:17→21:00)
[2017-02-14] MEDS: ESCITALOPRAM OXALATE 20 MG TAB PO SCH (08:17)
[2017-02-14] MEDS: POTASSIUM CHLORIDE 25 MEQ EFFERVESCENT TAB NG SCH (08:17)
[2017-02-14] MEDS: ACETAMINOPHEN 1000 MG/100 ML 100 ML IV PRN ×2 (09:48→16:36)
--- NOTE | 2017-02-14 12:14 | HHI.PR ---
Subjective Subjective Notes Started spiking temps Continues on CPAP Objective Vitals/I&O Vital Signs Date Time Temp Pulse Resp B/P (MAP) Pulse Ox O2 Delivery O2 Flow Rate FiO2 02/14/17 10:45 96 40 02/14/17 10:28 20 02/14/17 10:00 76 02/14/17 08:00 101.5 125/57 (79) 02/11/17 07:02 Room Air Labs Laboratory Tests Test 02/14/17 04:29 White Blood Count 4.2 Red Blood Count 3.18 Hemoglobin 9.6 Hematocrit 27.7 Mean Corpuscular Volume 87.1 Mean Corpuscular Hemoglobin 30.2 Mean Corpuscular Hemoglobin Concent 34.7 Red Cell Distribution Width 12.9 Platelet Count 117 Mean Platelet Volume 8.5 Neutrophils (%) (Auto) 80.7 Lymphocytes (%) (Auto) 10.8 Monocytes (%) (Auto) 6.1 Eosinophils (%) (Auto) 2.1 Basophils (%) (Auto) 0.3 Neutrophils # (Auto) 3.4 Lymphocytes # (Auto) 0.5 Monocytes # (Auto) 0.3 Eosinophils # (Auto) 0.1 Basophils # (Auto) 0.0 CBC Comment DIFF FINAL Differential Comment Blood Urea Nitrogen 10 Creatinine 0.40 Random Glucose 167 Total Protein 5.4 Albumin 2.0 Calcium Level 8.1 Magnesium Level 1.7 Alkaline Phosphatase 78 Aspartate Amino Transf (AST/SGOT) 16 Alanine Aminotransferase (ALT/SGPT) 11 Total Bilirubin 0.7 Sodium Level 141 Potassium Level 3.5 Chloride Level 106 Carbon Dioxide Level 30.0 Anion Gap 5 Estimat Glomerular Filtration Rate 170 Date/Time Source Procedure Growth Status 02/14/17 09:35 Blood Peripheral Aerobic Blood Culture Pending Received 02/14/17 09:35 Blood Peripheral Anaerobic Blood Culture Pending Received 02/14/17 10:00 Sputum Endotracheal Gram Stain Pending Received 02/14/17 10:00 Sputum Endotracheal Sputum Culture Pending Received 02/14/17 10:00 Urine Catheterized Urine Legionella Antigen Pending Received 02/14/17 10:00 Urine Catheterized Urine Streptococcus pneumoniae Antigen (M Pending Received Radiology Last Impressions Chest X-Ray 02/14/17 0600 Signed Impressions: Service Date/Time: Tuesday, February 14, 2017 05:43 - CONCLUSION: No significant change in the diffuse bilateral pulmonary infiltrates. Shiva Wilkerson Jr., MD Abdomen/Pelvis CT 02/11/17 0316 Signed Impressions: Service Date/Time: Saturday, February 11, 2017 03:45 - CONCLUSION: 1. Previous gastric bypass. 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 2. Recurrent umbilical hernia containing a short segment of distal small bowel, not acutely contributory. Zak Guerrero MD Cardiovascular: Regular Lungs: Rhonchi Abdomen: BS normal Extremities: Perfused Wound Wound : Wound Location: Abdomen Appearance: Clean & Dry A/P Assessment and Plan 46yo F POD#2 lysis of adhesions/sbo -Do not use or remove NGT, remain strict NPO -Continue to wean vent appropriately, hopefully can extubate tomorrow Monica Lee [facility] Feb 14, 2017 12:14
--- NOTE | 2017-02-14 13:08 | ECHRPT ---
Indication: SOB CONCLUSIONS Normal left ventricular size. Mild concentric left ventricular hypertrophy. The left ventricular systolic function is normal with an estimated ejection fraction in the range of 60-65%. Trace mitral valve regurgitation. Mild pulmonary valve regurgitation. BP: 126 / 56 HR: 86 Rhythm: MEASUREMENTS (Male / Female) Normal Values Technical Quality:Good 2D ECHO LV Diastolic Diameter PLAX 4.5 cm 4.2 - 5.9 / 3.9 - 5.3 cm LV Systolic Diameter PLAX 3.2 cm IVS Diastolic Thickness 0.9 cm 0.6 - 1.0 / 0.6 - 0.9 cm LVPW Diastolic Thickness 0.6 cm 0.6 - 1.0 / 0.6 - 0.9 cm LV Relative Wall Thickness 0.3 RV Internal Dim ED PLAX 2.2 cm LA Systolic Diameter LX 3.2 cm 3.0 - 4.0 / 2.7 - 3.8 cm M-MODE Aortic Root Diameter MM 2.9 cm AV Cusp Separation MM 2.0 cm DOPPLER Mitral E Point Velocity 118.0 cm/s Mitral A Point Velocity 89.5 cm/s Mitral E to A Ratio 1.3 TR Peak Velocity 322.0 cm/s TR Peak Gradient 41.5 mmHg Right Atrial Pressure 10.0 mmHg Pulmonary Artery Systolic Pressu 51.5 mmHg Right Ventricular Systolic Press 51.5 mmHg FINDINGS LEFT VENTRICLE Normal left ventricular size. Mild concentric left ventricular hypertrophy. The left ventricular systolic function is normal with an estimated ejection fraction in the range of 60-65%. RIGHT VENTRICLE Normal right ventricular size and systolic function. LEFT ATRIUM The left atrial size is normal. RIGHT ATRIUM The right atrial size is normal. ATRIAL SEPTUM Normal atrial septal thickness without atrial level shunting by limited color doppler interrogation. AORTA The aortic root and proximal ascending aorta are normal in size on limited imaging. MITRAL VALVE Trace mitral valve regurgitation. AORTIC VALVE Trileaflet aortic valve. No aortic valve stenosis or regurgitation. TRICUSPID VALVE Structurally normal tricuspid valve. No tricuspid valve stenosis or regurgitation. PULMONARY VALVE Mild pulmonary valve regurgitation. VESSELS The inferior vena cava is normal in size. PERICARDIUM No pericardial effusion. Robbi Dominguez MD (Electronically Signed) Final Date:14 February 2017 13:06
--- NOTE | 2017-02-14 16:10 | RADRPT ---
EXAM DATE/TIME: 02/14/2017 15:50 [facility] COMPARISON: No previous studies available for comparison. INDICATIONS : Evaluate for infiltrate. RADIATION DOSE: 9.59 CTDIvol (mGy) MEDICAL HISTORY : Cardiovascular disease. Hypertension. Diabetes mellitus type 2. SURGICAL HISTORY : Appendectomy. Hysterectomy.Gastric bypass. ENCOUNTER: Initial ACUITY: 1 day PAIN SCALE: Non-responsive LOCATION: chest TECHNIQUE: Volumetric scanning of the chest was performed. Using automated exposure control and adjustment of t he mA and/or kV according to patient size, radiation dose was kept as low as reasonably achievable to obtain optimal diagnostic quality images. DICOM format image data is available electronically for r eview and comparison. Follow-up recommendations for detected pulmonary nodules are based at a minimum on nodule size and pa tient risk factors according to Fleischner Society Guidelines. FINDINGS: LUNGS: Patchy airspace disease is seen in the perihilar distribution in both lungs. There is no significant air bronchograms. PLEURAE: There is no pleural thickening or pleural effusion. MEDIASTINUM: The heart and great vessels demonstrate no acute abnormality. There is no mediastinal or hilar lymph adenopathy. AXILLAE: Within normal limits. No lymphadenopathy. MUSCULOSKELETAL: Moderate degenerative changes. MISCELLANEOUS: Evidence for previous gastric surgery. CONCLUSION: Airspace disease perihilar without air bronchograms suspicious for RDS. There is no pleural effusion. Adams Saravia MD FACR on February 14, 2017 at 16:07 Board Certified Radiologist. This report was verified electronically.
[2017-02-15] VITALS (19 sets, daily range): BP systolic 113–149; BP diastolic 53–66; PULSE 64–84; RESP 18–26; TEMP 98–99.9; O2SAT 92–97
[2017-02-15] MEDS: CLINDAMYCIN 900 MG/NS PREMIX 50 ML IV SCH ×3 (00:34→17:40)
[2017-02-15] MEDS: ENOXAPARIN SODIUM 40 MG/0.4 ML SYRINGE SQ SCH ×2 (00:34→12:38)
[2017-02-15] MEDS: RESP: ALBUTEROL 2.5 MG/IPRATROPIUM 0.5 MG NEB (SCH) NEB ×4 (03:43→20:35)
[2017-02-15 04:33] LABS: AUTOMATED NEUTROPHIL # 4.4 TH/MM3 (1.8-7.7); BASOPHIL % 0.5 % (0.0-2.0); EOSINOPHIL # 0.1 TH/MM3 (0-0.4); EOSINOPHIL % 2.1 % (0.0-4.0); HEMATOCRIT 29.4 % (35.0-46.0); HEMOGLOBIN 9.9 GM/DL (11.6-15.3); LYMPH % 8.5 % (9.0-44.0); LYMPHOCYTE # 0.4 TH/MM3 (1.0-4.8); MEAN CORPUSCULAR HEMOGLOBIN 29.2 PG (27.0-34.0); MEAN CORPUSCULAR HGB CONC 33.5 % (32.0-36.0); MEAN PLATELET VOLUME 8.4 FL (7.0-11.0); MONO % 6.3 % (0.0-8.0); MONOCYTE # 0.3 TH/MM3 (0-0.9); NEUT % 82.6 % (16.0-70.0); PLATELET COUNT 137 TH/MM3 (150-450); RED BLOOD COUNT 3.38 MIL/MM3 (4.00-5.30); RED CELL DISTRIBUTION WIDTH 12.9 % (11.6-17.2); WHITE BLOOD COUNT 5.3 TH/MM3 (4.0-11.0)
[2017-02-15 04:54] LABS: ALBUMIN 2.1 GM/DL (3.4-5.0); ALT (GPT) 10 U/L (10-53); AST (GOT) 13 U/L (15-37); BICARBONATE 30.4 MEQ/L (21.0-32.0); BLOOD UREA NITROGEN 13 MG/DL (7-18); CALCIUM 8.3 MG/DL (8.5-10.1); CHLORIDE 105 MEQ/L (98-107); CREATININE 0.33 MG/DL (0.50-1.00); GLOMERULAR FILTRATION RATE 213 ML/MIN (>89); GLUCOSE,RANDOM 180 MG/DL (74-106); MAGNESIUM 1.9 MG/DL (1.5-2.5); PHOSPHORUS 2.6 MG/DL (2.5-4.9); SODIUM (NA) 144 MEQ/L (136-145)
[2017-02-15 04:56] LABS: ALKALINE PHOSPHATASE 94 U/L (45-117); TOTAL BILIRUBIN ADULT 0.6 MG/DL (0.2-1.0)
[2017-02-15] MEDS: PROPOFOL 1000 MG/100 ML INJ 100 ML IV PRN (05:08)
[2017-02-15] MEDS: CEFEPIME INJ 2,000 MG in SODIUM CHLORIDE 0.9% INJ 100 ML IV SCH ×3 (05:09→22:00)
[2017-02-15] MEDS: PCA - TOTAL MG MORPHINE DELIVERED PER SHIFT SCH (06:00)
--- NOTE | 2017-02-15 06:12 | RADRPT ---
EXAM DATE/TIME: 02/15/2017 05:30 [facility] COMPARISON: CHEST SINGLE AP, February 14, 2017, 5:43. INDICATIONS : Shortness of breath MEDICAL HISTORY : Hypertension. Renal calculi SURGICAL HISTORY : Appendectomy. Hysterectomy. Colon resection. Gastric bypass ENCOUNTER: Subsequent ACUITY: 4 - 6 days PAIN SCORE: Non-responsive. LOCATION: Bilateral chest FINDINGS: A single portable frontal view the chest shows the tip of the endotracheal tube 5 cm proximal to judith na. Left subclavian central line. Tip of the nasogastric tube in the lower thoracic esophagus. Diffus e bilateral pulmonary infiltrates are unchanged. No effusions. Heart is normal in size. CONCLUSION: Unchanged diffuse bilateral pulmonary infiltrates. Shiva Wilkerson Jr., MD on February 15, 2017 at 6:10 Board Certified Radiologist. This report was verified electronically.
[2017-02-15] MEDS ORDERED: FUROSEMIDE 20 MG/2 ML VIAL IV PUSH ONE (07:15)
--- NOTE | 2017-02-15 07:25 | HHI.CCPN ---
Subjective Remarks/Hospital Course 46 y/o woman has developed abdominal pain and CT scan reveals small bowel obstruction, likely from adhesions related to prior surgery. She has a complicated medical history including morbid obesity and s/p yvon-en-y gastric bypass surgery. In the OR the patient sustained an aspiration followed by hypoxemia requiring increased ventilator support and FiO2. I met her on her arrival to the [facility] and discussed the case with Surgeon and Anesthesiologist at the bedside. SUBJ 02/12/17: Patient remains intubated sedated. Regarding 60% FiO2 and 10 of PEEP. Chest x-ray showing bilateral infiltrates. Sputum culture requested. Urine culture with gram-negative estee. Ceftriaxone DC'd and cefepime started 02/13/17: FiO2 currently at 50% and PEEP at 10. Chest x-ray slight worsening of bilateral infiltrates but clinically stable. Sputum Gram stain with GPC in pairs urine culture Escherichia coli. Continue clindamycin and cefepime for now. Positive fluid balance-start IV Lasix 40 mg now and every 12 hours with potassium replacement 02/14/17: Remains intubated sedated, urine output excellent with IV Lasix. Chest x-ray with persistent bilateral infiltrates. Spiking fever 101.5, repeat morales culture, Check CT of the chest today. IR to advance/position NGT 02/15/17: Patient remains intubated, lightly sedated. Low grade fever. Tolerates CPAP, but placed on ACV at night. Secretions are mild but thick. Attempt CPAP with possible extubation-will discuss with Dr. Whyte. Objective Vital Signs Date Time Temp Pulse Resp B/P (MAP) Pulse Ox O2 Delivery O2 Flow Rate FiO2 02/15/17 06:00 74 02/15/17 04:00 40 02/15/17 04:00 99.7 18 117/58 (77) 95 02/11/17 07:02 Room Air Intake and Output 02/15/17 02/15/17 02/16/17 08:00 16:00 00:00 Output Total 850 ml Balance -850 ml Result Diagram: 02/15/17 0416 02/15/17 0416 Other Results Microbiology Date/Time Source Procedure Growth Status 02/12/17 16:25 Sputum Endotracheal Gram Stain - Final Complete 02/12/17 16:25 Sputum Endotracheal Sputum Culture - Final MODERATE GROWTH NORMAL RESPIRATORY CARLOS Complete 02/14/17 10:00 Urine Catheterized Urine Legionella Antigen - Final PRESUMPTIVE NEGATIVE FOR LEGIONELLA P... Complete 02/14/17 10:00 Urine Catheterized Urine Streptococcus pneumoniae Antigen (M - Final PRESUMPTIVE NEGATIVE FOR STREPTOCOCCU... Complete Objective Remarks Gen: Sedated with low dose propofol and fentanyl. Wakes up easily Head: Normal. Neck: Supple, orally intubated. Lungs: Improved bilateral wheezes. Good air movement. Heart: NL S1S2, RRR. No JVD. Abdomen: Post surgical, nondistended. Quiet. Extremities: Well perfused. Neuro: Moves 4 limbs and opens eyes to stimulation. Follows commands Urinary Catheter: Yes Assessment to: Continue Vascular Central Line Catheter: Yes Assessment to: Continue A/P Assessment and Plan Assessment: Acute Hypoxemic Respiratory Failure Aspiration Pneumonia Acute lung injury/ARDS Severe sepsis UTI with E Coli Morbid Obesity. SBO -> s/p lysis of adhesions. Plan: Neuro: - Propofol, fentanyl, for sedation and vent synchrony - Daily sedation vacation - Chronic benzo use, Use versed drip as needed - Wellbutrin and Lexapro, continue to avoid withdrawal problems once Ng repositioned Respiratory - PRVC vent mode, PEEP 5. Fio2 40% - Diuresis as below - Clindamycin, cefepime - SBT 5/5 for 90 min with ABG parameters - CXR showing significant bilateral infiltrates-CT chest diffuse infiltrates, no bronchial obstruction - DuoNeb every 4 hours scheduled and when necessary CV - IV Lasix 40 q12, with additional 20 mg IV x1 today - 2D Echo normal EF. Mild VT/TR - Hemodynamically remains stable Renal - Urine output excellent on Lasix GI - NG to LIS (s/p gastric bypass 5 years ago - do not reinsert) - Post op management per Dr. Can ID - E Coli UTI on arrival to ED - Aspiration pneumonia - Continue clindamycin and cefepime - Repeat sputum culture gram stain GPC in pairs Px - Lovenox and pepcid Overall impression: Critically ill with hypoxemic respiratory failure after large aspiration in OR. Developed ARDS, now stable to improving. Attempt CPAP with possible extubation Critical care 30 mins aside from procedures Ketan Crespo MD Feb 15, 2017 07:25
[2017-02-15] MEDS ORDERED: POTASSIUM CHLOR 40 MEQ PREMIX 100 ML IV ONE (07:30)
[2017-02-15] MEDS: FUROSEMIDE 40 MG/4 ML VIAL IV PUSH SCH ×2 (07:40→17:40)
[2017-02-15] MEDS: CHLORHEXIDINE 0.12% (ORAL KIT) 15 ML CUP MT SCH ×2 (07:40→19:43)
[2017-02-15] MEDS: ESCITALOPRAM OXALATE 20 MG TAB PO SCH (09:00)
[2017-02-15] MEDS: DOCUSATE SODIUM 100 MG CAP PO SCH ×2 (09:00→20:01)
[2017-02-15] MEDS: POTASSIUM CHLORIDE 25 MEQ EFFERVESCENT TAB NG SCH (09:00)
[2017-02-15] MEDS: METOPROLOL TARTRATE 25 MG TAB PO SCH (09:00)
[2017-02-15] MEDS: buPROPion HCL 150 MG SUSTAINED RELEASE TAB PO SCH (09:00)
[2017-02-15] MEDS: SODIUM CHLORIDE 0.9% FLUSH 10 ML FLUSH IV FLUSH SCH ×2 (09:19→20:01)
[2017-02-15] MEDS: FAMOTIDINE 20 MG/2 ML VIAL IV PUSH SCH ×2 (09:19→20:00)
[2017-02-16] VITALS (15 sets, daily range): BP systolic 111–135; BP diastolic 56–67; PULSE 56–67; RESP 20–29; TEMP 97.9–99.4; O2SAT 93–99
[2017-02-16] MEDS: ENOXAPARIN SODIUM 40 MG/0.4 ML SYRINGE SQ SCH ×3 (01:00→23:28)
[2017-02-16] MEDS: RESP: ALBUTEROL 2.5 MG/IPRATROPIUM 0.5 MG NEB (SCH) NEB ×4 (04:21→20:58)
[2017-02-16 04:48] LABS: AUTOMATED NEUTROPHIL # 3.9 TH/MM3 (1.8-7.7); BASOPHIL % 0.5 % (0.0-2.0); EOSINOPHIL # 0.1 TH/MM3 (0-0.4); EOSINOPHIL % 2.4 % (0.0-4.0); HEMATOCRIT 29.4 % (35.0-46.0); LYMPH % 9.3 % (9.0-44.0); LYMPHOCYTE # 0.4 TH/MM3 (1.0-4.8); MEAN CELL VOLUME 87.5 FL (80.0-100.0); MEAN CORPUSCULAR HEMOGLOBIN 29.8 PG (27.0-34.0); MEAN PLATELET VOLUME 8.4 FL (7.0-11.0); MONO % 6.7 % (0.0-8.0); MONOCYTE # 0.3 TH/MM3 (0-0.9); NEUT % 81.1 % (16.0-70.0); PLATELET COUNT 160 TH/MM3 (150-450); RED BLOOD COUNT 3.35 MIL/MM3 (4.00-5.30); RED CELL DISTRIBUTION WIDTH 12.9 % (11.6-17.2); WHITE BLOOD COUNT 4.8 TH/MM3 (4.0-11.0)
[2017-02-16 05:09] LABS: ALBUMIN 2.1 GM/DL (3.4-5.0); AST (GOT) 7 U/L (15-37); BICARBONATE 32.3 MEQ/L (21.0-32.0); BLOOD UREA NITROGEN 18 MG/DL (7-18); CALCIUM 8.7 MG/DL (8.5-10.1); CHLORIDE 102 MEQ/L (98-107); CREATININE 0.45 MG/DL (0.50-1.00); GLOMERULAR FILTRATION RATE 149 ML/MIN (>89); GLUCOSE,RANDOM 239 MG/DL (74-106); SODIUM (NA) 143 MEQ/L (136-145)
[2017-02-16 05:10] LABS: ALT (GPT) 9 U/L (10-53)
[2017-02-16 05:12] LABS: ALKALINE PHOSPHATASE 76 U/L (45-117); TOTAL BILIRUBIN ADULT 0.5 MG/DL (0.2-1.0); TOTAL PROTEIN 6.2 GM/DL (6.4-8.2)
--- NOTE | 2017-02-16 05:25 | RADRPT ---
EXAM DATE/TIME: 02/16/2017 04:53 [facility] COMPARISON: CHEST SINGLE AP, February 15, 2017, 5:30. INDICATIONS : Respiratory disease. MEDICAL HISTORY : Hypertension. Renal calculi SURGICAL HISTORY : Appendectomy. Hysterectomy. Colon resection. Gastric bypass ENCOUNTER: Subsequent ACUITY: 4 - 6 days PAIN SCORE: Non-responsive. LOCATION: Bilateral chest FINDINGS: Acr AP left subclavian central venous catheter remains in place. Endotracheal tube and nasogastric tu be no longer seen. Persistent bilateral diffuse pulmonary opacity. No significant interval change. CONCLUSION: No significant interval change in bilateral diffuse pulmonary opacity. Nasogastric tube and endotrach eal tube no longer seen. Vasyl Grider MD on February 16, 2017 at 5:23 Board Certified Radiologist. This report was verified electronically.
[2017-02-16] MEDS: CEFEPIME INJ 2,000 MG in SODIUM CHLORIDE 0.9% INJ 100 ML IV SCH ×3 (06:00→21:26)
[2017-02-16] MEDS: CHLORHEXIDINE 0.12% (ORAL KIT) 15 ML CUP MT SCH ×2 (08:00→19:51)
--- NOTE | 2017-02-16 08:44 | HHI.PR ---
Subjective Subjective Notes Sitting up in chair, clinically much improved Objective Vitals/I&O Vital Signs Date Time Temp Pulse Resp B/P (MAP) Pulse Ox O2 Delivery O2 Flow Rate FiO2 02/16/17 06:00 62 02/16/17 04:21 96 45 02/16/17 04:00 97.9 25 125/59 (81) 02/15/17 20:37 Venturi Mask 02/15/17 20:00 6.00 Labs Laboratory Tests Test 02/15/17 08:50 02/16/17 04:30 Blood Gas Puncture Site ART LINE Blood Gas Patient Temperature 98.6 Blood Gas HCO3 29 Blood Gas Base Excess 5.1 Blood Gas Oxygen Saturation 92 Arterial Blood pH 7.44 Arterial Blood Partial Pressure CO2 44 Arterial Blood Partial Pressure O2 102 Arterial Blood Oxygen Content 16.1 Arterial Blood Carboxyhemoglobin 1.1 Arterial Blood Methemoglobin 3.0 Blood Gas Hemoglobin 12.3 Oxygen Delivery Device VENTILATOR Blood Gas Ventilator Setting CPAP/5/+5/40 Blood Gas Inspired Oxygen 40 White Blood Count 4.8 Red Blood Count 3.35 Hemoglobin 10.0 Hematocrit 29.4 Mean Corpuscular Volume 87.5 Mean Corpuscular Hemoglobin 29.8 Mean Corpuscular Hemoglobin Concent 34.0 Red Cell Distribution Width 12.9 Platelet Count 160 Mean Platelet Volume 8.4 Neutrophils (%) (Auto) 81.1 Lymphocytes (%) (Auto) 9.3 Monocytes (%) (Auto) 6.7 Eosinophils (%) (Auto) 2.4 Basophils (%) (Auto) 0.5 Neutrophils # (Auto) 3.9 Lymphocytes # (Auto) 0.4 Monocytes # (Auto) 0.3 Eosinophils # (Auto) 0.1 Basophils # (Auto) 0.0 CBC Comment DIFF FINAL Differential Comment Blood Urea Nitrogen 18 Creatinine 0.45 Random Glucose 239 Total Protein 6.2 Albumin 2.1 Calcium Level 8.7 Magnesium Level 2.0 Alkaline Phosphatase 76 Aspartate Amino Transf (AST/SGOT) 7 Alanine Aminotransferase (ALT/SGPT) 9 Total Bilirubin 0.5 Sodium Level 143 Potassium Level 3.3 Chloride Level 102 Carbon Dioxide Level 32.3 Anion Gap 9 Estimat Glomerular Filtration Rate 149 Date/Time Source Procedure Growth Status 02/14/17 09:35 Blood Peripheral Aerobic Blood Culture - Preliminary NO GROWTH IN 1 DAY Resulted 02/14/17 09:35 Blood Peripheral Anaerobic Blood Culture - Preliminary NO GROWTH IN 1 DAY Resulted 02/14/17 10:00 Sputum Endotracheal Gram Stain - Final Resulted 02/14/17 10:00 Sputum Culture - Preliminary Gram Negative Gerber Resulted 02/14/17 10:00 Urine Catheterized Urine Legionella Antigen - Final PRESUMPTIVE NEGATIVE FOR LEGIONELLA P... Complete 02/14/17 10:00 Urine Catheterized Urine Streptococcus pneumoniae Antigen (M - Final PRESUMPTIVE NEGATIVE FOR STREPTOCOCCU... Complete Radiology Last Impressions Chest X-Ray 02/16/17 0600 Signed Impressions: Service Date/Time: Thursday, February 16, 2017 04:53 - CONCLUSION: No significant interval change in bilateral diffuse pulmonary opacity. Nasogastric tube and endotracheal tube no longer seen. Vasyl Grider MD Chest CT 02/14/17 0000 Signed Impressions: Service Date/Time: Tuesday, February 14, 2017 15:50 - CONCLUSION: Airspace disease perihilar without air bronchograms suspicious for RDS. There is no pleural effusion. Adams Saravia MD FACR Abdomen/Pelvis CT 02/11/17 0316 Signed Impressions: Service Date/Time: Saturday, February 11, 2017 03:45 - CONCLUSION: 1. Previous gastric bypass. 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 2. Recurrent umbilical hernia containing a short segment of distal small bowel, not acutely contributory. Zak Guerrero MD Cardiovascular: Regular Lungs: Rhonchi Abdomen: Post-op tenderness Extremities: Perfused Wound Wound : Wound Location: Abdomen Appearance: Clean & Dry A/P Assessment and Plan 46yo F POD#4 lysis of adhesions/sbo --Ok for NGT removal -Passed swallow eval today. Clear liquid diet with no concentrated sweets -Was extubated yesterday, continue to wean oxygen use -PT for OOB and ambulation Monica Lee Feb 16, 2017 08:44
--- NOTE | 2017-02-16 09:16 | HHI.CCPN ---
Subjective Remarks/Hospital Course 46 y/o woman has developed abdominal pain and CT scan reveals small bowel obstruction, likely from adhesions related to prior surgery. She has a complicated medical history including morbid obesity and s/p yvon-en-y gastric bypass surgery. In the OR the patient sustained an aspiration followed by hypoxemia requiring increased ventilator support and FiO2. I met her on her arrival to the [facility] and discussed the case with Surgeon and Anesthesiologist at the bedside. SUBJ 02/12/17: Patient remains intubated sedated. Regarding 60% FiO2 and 10 of PEEP. Chest x-ray showing bilateral infiltrates. Sputum culture requested. Urine culture with gram-negative estee. Ceftriaxone DC'd and cefepime started 02/13/17: FiO2 currently at 50% and PEEP at 10. Chest x-ray slight worsening of bilateral infiltrates but clinically stable. Sputum Gram stain with GPC in pairs urine culture Escherichia coli. Continue clindamycin and cefepime for now. Positive fluid balance-start IV Lasix 40 mg now and every 12 hours with potassium replacement 02/14/17: Remains intubated sedated, urine output excellent with IV Lasix. Chest x-ray with persistent bilateral infiltrates. Spiking fever 101.5, repeat morales culture, Check CT of the chest today. IR to advance/position NGT 02/15/17: Patient remains intubated, lightly sedated. Low grade fever. Tolerates CPAP, but placed on ACV at night. Secretions are mild but thick. Attempt CPAP with possible extubation-will discuss with Dr. Whyte. 02/16/17: Extubated yesterday tolerating well. Electively placed on BiPAP overnight, currently weaned to face mask. Maintaining oxygen saturation above 95%. Urine output remains excellent with IV Lasix. Sputum culture with Escherichia coli and Klebsiella pansensitive Objective Vital Signs Date Time Temp Pulse Resp B/P (MAP) Pulse Ox O2 Delivery O2 Flow Rate FiO2 02/16/17 06:00 62 02/16/17 04:21 96 45 02/16/17 04:00 97.9 25 125/59 (81) 02/15/17 20:37 Venturi Mask 02/15/17 20:00 6.00 Intake and Output 02/16/17 02/16/17 02/17/17 08:00 16:00 00:00 Output Total 975 ml Balance -975 ml Result Diagram: 02/16/17 0430 02/16/17 0430 Other Results Microbiology Date/Time Source Procedure Growth Status 02/14/17 10:00 Sputum Endotracheal Gram Stain - Final Complete 02/14/17 10:00 Sputum Culture - Final Escherichia Coli Klebsiella Pneumoniae Complete 02/14/17 10:00 Urine Catheterized Urine Legionella Antigen - Final PRESUMPTIVE NEGATIVE FOR LEGIONELLA P... Complete 02/14/17 10:00 Urine Catheterized Urine Streptococcus pneumoniae Antigen (M - Final PRESUMPTIVE NEGATIVE FOR STREPTOCOCCU... Complete 02/14/17 10:00 Urine Catheterized Urine Urine Culture - Final NO GROWTH IN 48 HOURS. Complete Objective Remarks Gen: Off all seation. Awake alert Head: Normal. Neck: Supple Lungs: Improved bilateral wheezes. Good air movement. Air entry slightly diminished at the bases Heart: NL S1S2, RRR. No JVD. Abdomen: Post surgical, nondistended. Incisions dressings intact Extremities: Well perfused. Neuro: More awake alert oriented 3. Follows commands moves all extremities Urinary Catheter: Yes Assessment to: Continue Vascular Central Line Catheter: Yes Assessment to: Remove A/P Assessment and Plan Assessment: Acute Hypoxemic Respiratory Failure-improving Aspiration Pneumonia Acute lung injury/ARDS Severe sepsis UTI with E Coli Morbid Obesity. SBO -> s/p lysis of adhesions. Plan: Neuro: - Off continuous sedation. Resume home antidepressants and anxiolytics - Lortab when necessary for pain - Chronic benzo use, resume PRN Xanax - Wellbutrin and Lexapro, continue to avoid withdrawal Respiratory - Extubated 02/15/17, tolerating well. Continue BIPAP at night. - Diuresis as below - Continue Clindamycin, cefepime - CXR showing significant bilateral infiltrates- Slighlty improved today on my review - CT chest diffuse infiltrates, no bronchial obstruction - DuoNeb every 4 hours scheduled and when necessary, EzPAP, Acapella, IS CV - IV Lasix 40 q12 - 2D Echo normal EF. Mild MN/TR - Hemodynamically remains stable Renal - Urine output excellent on Lasix GI - Swallow eval and diet per speech and gen surgery rec - Post op management per Dr. Can ID - E Coli UTI on arrival to ED - Aspiration pneumonia E Coli and Klebsiella - Continue clindamycin and cefepime - DC clindamycin 02/17/17 if sputum culture remains negative for gram positives Px - Lovenox and pepcid level 3 PT daily, increase activity as tolerated Ketan Crespo MD Feb 16, 2017 09:16
[2017-02-16] MEDS: CLINDAMYCIN 900 MG/NS PREMIX 50 ML IV SCH ×4 (09:54→23:28)
[2017-02-16] MEDS: POTASSIUM CHLORIDE 25 MEQ EFFERVESCENT TAB NG SCH (09:54)
[2017-02-16] MEDS: DOCUSATE SODIUM 100 MG CAP PO SCH ×2 (09:55→21:25)
[2017-02-16] MEDS: METOPROLOL TARTRATE 25 MG TAB PO SCH (09:55)
[2017-02-16] MEDS: FAMOTIDINE 20 MG/2 ML VIAL IV PUSH SCH ×2 (09:55→21:25)
[2017-02-16] MEDS: buPROPion HCL 150 MG SUSTAINED RELEASE TAB PO SCH (09:55)
[2017-02-16] MEDS: FUROSEMIDE 40 MG/4 ML VIAL IV PUSH SCH ×2 (09:57→17:10)
[2017-02-16] MEDS: SODIUM CHLORIDE 0.9% FLUSH 10 ML FLUSH IV FLUSH SCH ×2 (09:57→21:26)
[2017-02-16] MEDS: CYANOCOBALAMIN 1,000 MCG TAB PO SCH (09:59)
[2017-02-16] MEDS: FOLIC ACID 1 MG TAB PO SCH (10:00)
[2017-02-16] MEDS ORDERED: POTASSIUM CHLORIDE 20 MEQ CONTROLLED RELEASE TAB PO ONE (16:45)
[2017-02-16] MEDS: ESCITALOPRAM OXALATE 20 MG TAB PO SCH (21:25)
[2017-02-16] MEDS: ALPRAZolam 0.25 MG TAB PO PRN (23:41)
[2017-02-17] VITALS (14 sets, daily range): BP systolic 119–133; BP diastolic 57–61; PULSE 54–95; RESP 12–25; TEMP 97.5–99.7; O2SAT 92–98
[2017-02-17] MEDS: RESP: ALBUTEROL 2.5 MG/IPRATROPIUM 0.5 MG NEB (SCH) NEB ×4 (04:18→21:46)
[2017-02-17] MEDS: CEFEPIME INJ 2,000 MG in SODIUM CHLORIDE 0.9% INJ 100 ML IV SCH (06:00)
[2017-02-17] MEDS: CHLORHEXIDINE 0.12% (ORAL KIT) 15 ML CUP MT SCH ×2 (08:00→19:19)
[2017-02-17] MEDS: CLINDAMYCIN 900 MG/NS PREMIX 50 ML IV SCH (08:11)
[2017-02-17] MEDS: POTASSIUM CHLORIDE 25 MEQ EFFERVESCENT TAB NG SCH ×2 (08:11→09:00)
[2017-02-17] MEDS: CYANOCOBALAMIN 1,000 MCG TAB PO SCH (08:12)
[2017-02-17] MEDS: DOCUSATE SODIUM 100 MG CAP PO SCH ×2 (08:12→20:31)
[2017-02-17] MEDS: ALPRAZolam 0.25 MG TAB PO PRN ×2 (08:12→20:31)
[2017-02-17] MEDS: MULTIVITAMIN TAB PO SCH (08:12)
[2017-02-17] MEDS: METOPROLOL TARTRATE 25 MG TAB PO SCH (08:13)
[2017-02-17] MEDS: FAMOTIDINE 20 MG/2 ML VIAL IV PUSH SCH (08:13)
[2017-02-17] MEDS: buPROPion HCL 150 MG SUSTAINED RELEASE TAB PO SCH (08:13)
[2017-02-17] MEDS: FUROSEMIDE 40 MG/4 ML VIAL IV PUSH SCH (08:13)
[2017-02-17] MEDS: FOLIC ACID 1 MG TAB PO SCH (08:13)
[2017-02-17] MEDS: SODIUM CHLORIDE 0.9% FLUSH 10 ML FLUSH IV FLUSH SCH ×2 (08:14→20:31)
--- NOTE | 2017-02-17 09:19 | HHI.CCPN ---
Subjective Remarks/Hospital Course 46 y/o woman has developed abdominal pain and CT scan reveals small bowel obstruction, likely from adhesions related to prior surgery. She has a complicated medical history including morbid obesity and s/p yvon-en-y gastric bypass surgery. In the OR the patient sustained an aspiration followed by hypoxemia requiring increased ventilator support and FiO2. I met her on her arrival to the [facility] and discussed the case with Surgeon and Anesthesiologist at the bedside. SUBJ 02/12/17: Patient remains intubated sedated. Regarding 60% FiO2 and 10 of PEEP. Chest x-ray showing bilateral infiltrates. Sputum culture requested. Urine culture with gram-negative estee. Ceftriaxone DC'd and cefepime started 02/13/17: FiO2 currently at 50% and PEEP at 10. Chest x-ray slight worsening of bilateral infiltrates but clinically stable. Sputum Gram stain with GPC in pairs urine culture Escherichia coli. Continue clindamycin and cefepime for now. Positive fluid balance-start IV Lasix 40 mg now and every 12 hours with potassium replacement 02/14/17: Remains intubated sedated, urine output excellent with IV Lasix. Chest x-ray with persistent bilateral infiltrates. Spiking fever 101.5, repeat morales culture, Check CT of the chest today. IR to advance/position NGT 02/15/17: Patient remains intubated, lightly sedated. Low grade fever. Tolerates CPAP, but placed on ACV at night. Secretions are mild but thick. Attempt CPAP with possible extubation-will discuss with Dr. Whyte. 02/16/17: Extubated yesterday tolerating well. Electively placed on BiPAP overnight, currently weaned to face mask. Maintaining oxygen saturation above 95%. Urine output remains excellent with IV Lasix. Sputum culture with Escherichia coli and Klebsiella pansensitive 02/17/17: Breathing comfortably good oxygen saturation on nasal cannula. Change Lasix to by mouth 20 twice a day. Change cefepime to Rocephin. DC clindamycin. Okay to transfer to floor Objective Vital Signs Date Time Temp Pulse Resp B/P (MAP) Pulse Ox O2 Delivery O2 Flow Rate FiO2 02/17/17 06:00 63 02/17/17 04:00 99.0 18 123/60 (81) 96 02/16/17 21:06 Nasal Cannula 5.00 02/16/17 04:21 45 Intake and Output 02/17/17 02/17/17 02/18/17 08:00 16:00 00:00 Intake Total 300 ml Output Total 500 ml Balance -200 ml Result Diagram: 02/16/1742902/16/17 043 Other Results Microbiology Date/Time Source Procedure Growth Status 02/14/17 10:00 Sputum Endotracheal Gram Stain - Final Complete 02/14/17 10:00 Sputum Culture - Final Escherichia Coli Klebsiella Pneumoniae Complete 02/14/17 10:00 Urine Catheterized Urine Legionella Antigen - Final PRESUMPTIVE NEGATIVE FOR LEGIONELLA P... Complete 02/14/17 10:00 Urine Catheterized Urine Streptococcus pneumoniae Antigen (M - Final PRESUMPTIVE NEGATIVE FOR STREPTOCOCCU... Complete 02/14/17 10:00 Urine Catheterized Urine Urine Culture - Final NO GROWTH IN 48 HOURS. Complete Objective Remarks Gen: Awake alert Head: Normal. Neck: Supple Lungs: Improved bilateral wheezes. Good air movement. Air entry slightly diminished at the bases Heart: NL S1S2, RRR. No JVD. Abdomen: Post surgical, nondistended. Incisions dressings intact Extremities: Well perfused. Neuro: More awake alert oriented 3. Follows commands moves all extremities A/P Assessment and Plan Assessment: Acute Hypoxemic Respiratory Failure-resoled Aspiration Pneumonia Acute lung injury from aspiration Sepsis resolving UTI with E Coli Morbid Obesity. SBO -> s/p lysis of adhesions. Plan: Neuro: - Resumed home antidepressants and anxiolytics - Lortab when necessary for pain - Chronic benzo use, resume PRN Xanax - Wellbutrin and Lexapro, continue to avoid withdrawal - Trazodone for sleep Respiratory - Extubated 02/15/17, tolerating well. Continue BIPAP at night and PRN - Diuresis as below - DC Clindamycin, cefepime. Start Cefepime - CXR showing significant bilateral infiltrates- repeat today - DuoNeb when necessary, EzPAP, Acapella, IS CV - IV Lasix 40 [id number] to by mouth every 12, 20 mg - 2D Echo normal EF. Mild OR/TR - Hemodynamically remains stable Renal - Urine output excellent on Lasix GI - Swallow eval and diet per speech and gen surgery rec - Post op management per Dr. Can ID - E Coli UTI on arrival to ED - Aspiration pneumonia E Coli and Klebsiella - DC clindamycin and cefepime, start Rocephin - DC clindamycin 02/17/17 if sputum culture remains negative for gram positives Px - Lovenox and Pepcid level 2 PT daily, increase activity as tolerated. CCM will sign off. Transfer to [facility] Ketan Crespo MD Feb 17, 2017 09:19
--- NOTE | 2017-02-17 10:25 | RADRPT ---
EXAM DATE/TIME: 02/17/2017 09:37 [facility] COMPARISON: CHEST SINGLE AP, February 16, 2017, 4:53. INDICATIONS : Evaluate for respiratory disease. MEDICAL HISTORY : Hypertension. Renal calculi. SURGICAL HISTORY : Appendectomy. Hysterectomy. Colon resection. Gastric bypass. ENCOUNTER: Subsequent ACUITY: 1 week PAIN SCORE: 0/10 LOCATION: chest FINDINGS: Persistent diffuse infiltrates are noted bilaterally and are stable. The heart is stable. CONCLUSION: Persistent diffuse infiltrates bilaterally which are stable. Shiraz Garcia MD on February 17, 2017 at 10:22 Board Certified Radiologist. This report was verified electronically.
[2017-02-17] MEDS ORDERED: clonazePAM 0.5 MG TAB PO PRN (11:00)
[2017-02-17] MEDS: cefTRIAXone INJ 2,000 MG in SODIUM CHLORIDE 0.9% INJ 100 ML IV SCH (11:48)
[2017-02-17] MEDS: ENOXAPARIN SODIUM 40 MG/0.4 ML SYRINGE SQ SCH ×2 (11:48→22:20)
--- NOTE | 2017-02-17 15:18 | HHI.PR ---
Subjective Subjective Notes The patient feels much better today. She had a large bowel movement and is tolerating her diet without any problems. She denies any significant pain. Objective Vitals/I&O Vital Signs Date Time Temp Pulse Resp B/P (MAP) Pulse Ox O2 Delivery O2 Flow Rate FiO2 02/17/17 10:51 96 Nasal Cannula 4.00 02/17/17 06:00 63 02/17/17 04:00 99.0 18 123/60 (81) 02/16/17 04:21 45 Labs Date/Time Source Procedure Growth Status 02/14/17 09:35 Blood Peripheral Aerobic Blood Culture - Preliminary NO GROWTH IN 3 DAYS Resulted 02/14/17 09:35 Blood Peripheral Anaerobic Blood Culture - Preliminary NO GROWTH IN 3 DAYS Resulted 02/14/17 10:00 Sputum Endotracheal Gram Stain - Final Complete 02/14/17 10:00 Sputum Culture - Final Escherichia Coli Klebsiella Pneumoniae Complete 02/14/17 10:00 Urine Catheterized Urine Legionella Antigen - Final PRESUMPTIVE NEGATIVE FOR LEGIONELLA P... Complete 02/14/17 10:00 Urine Catheterized Urine Streptococcus pneumoniae Antigen (M - Final PRESUMPTIVE NEGATIVE FOR STREPTOCOCCU... Complete Radiology Last Impressions Chest X-Ray 02/16/17 0600 Signed Impressions: Service Date/Time: Thursday, February 16, 2017 04:53 - CONCLUSION: No significant interval change in bilateral diffuse pulmonary opacity. Nasogastric tube and endotracheal tube no longer seen. Vasyl Grider MD Chest CT 02/14/17 0000 Signed Impressions: Service Date/Time: Tuesday, February 14, 2017 15:50 - CONCLUSION: Airspace disease perihilar without air bronchograms suspicious for RDS. There is no pleural effusion. Adams Saravia MD FACR Abdomen/Pelvis CT 02/11/17 0316 Signed Impressions: Service Date/Time: Saturday, February 11, 2017 03:45 - CONCLUSION: 1. Previous gastric bypass. 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 2. Recurrent umbilical hernia containing a short segment of distal small bowel, not acutely contributory. Zak Guerrero MD Cardiovascular: Regular Lungs: Clear Abdomen: Non-distended, Non-tender, BS normal Extremities: No edema A/P Assessment and Plan Impression: Status post laparoscopic lysis of adhesions. The patient is doing extremely well and will be transferred to the regular floor today as soon as a bed is available. Plan: As long she can be weaned from her oxygen today she should be able to be discharged tomorrow. Gustavo Osman MD Feb 17, 2017 15:18
[2017-02-17] MEDS: FUROSEMIDE 20 MG TAB PO SCH (17:19)
[2017-02-17] MEDS: ESCITALOPRAM OXALATE 20 MG TAB PO SCH (20:31)
[2017-02-17] MEDS: FAMOTIDINE 20 MG TAB PO SCH (20:31)
[2017-02-17] MEDS: traZODone HCL 100 MG TAB PO SCH (22:20)
[2017-02-18] VITALS (8 sets, daily range): BP systolic 111–131; BP diastolic 56–62; PULSE 68–78; RESP 16–18; TEMP 96–98.6; O2SAT 91–97
[2017-02-18] MEDS: RESP: ALBUTEROL 2.5 MG/IPRATROPIUM 0.5 MG NEB (SCH) NEB ×4 (04:00→20:56)
[2017-02-18 07:20] LABS: BASOPHIL # 0.1 TH/MM3 (0-0.2); BASOPHIL % 1.3 % (0.0-2.0); EOSINOPHIL # 0.2 TH/MM3 (0-0.4); EOSINOPHIL % 3.4 % (0.0-4.0); HEMOGLOBIN 10.7 GM/DL (11.6-15.3); LYMPH % 20.2 % (9.0-44.0); LYMPHOCYTE # 0.9 TH/MM3 (1.0-4.8); MEAN CORPUSCULAR HEMOGLOBIN 28.8 PG (27.0-34.0); MEAN CORPUSCULAR HGB CONC 33.5 % (32.0-36.0); MEAN PLATELET VOLUME 8.6 FL (7.0-11.0); MONO % 7.7 % (0.0-8.0); MONOCYTE # 0.3 TH/MM3 (0-0.9); NEUT % 67.4 % (16.0-70.0); PLATELET COUNT 155 TH/MM3 (150-450); RED BLOOD COUNT 3.72 MIL/MM3 (4.00-5.30); RED CELL DISTRIBUTION WIDTH 12.9 % (11.6-17.2); WHITE BLOOD COUNT 4.5 TH/MM3 (4.0-11.0)
[2017-02-18 07:45] LABS: ALBUMIN 2.1 GM/DL (3.4-5.0); AST (GOT) 10 U/L (15-37); BICARBONATE 33.4 MEQ/L (21.0-32.0); BLOOD UREA NITROGEN 12 MG/DL (7-18); CALCIUM 8.5 MG/DL (8.5-10.1); CHLORIDE 95 MEQ/L (98-107); CREATININE 0.51 MG/DL (0.50-1.00); GLOMERULAR FILTRATION RATE 129 ML/MIN (>89); GLUCOSE,RANDOM 282 MG/DL (74-106); SODIUM (NA) 137 MEQ/L (136-145)
[2017-02-18 07:49] LABS: ALKALINE PHOSPHATASE 78 U/L (45-117); ALT (GPT) 12 U/L (10-53); TOTAL BILIRUBIN ADULT 0.5 MG/DL (0.2-1.0); TOTAL PROTEIN 5.9 GM/DL (6.4-8.2)
[2017-02-18] MEDS: CHLORHEXIDINE 0.12% (ORAL KIT) 15 ML CUP MT SCH ×2 (08:00→20:00)
[2017-02-18] MEDS: buPROPion HCL 150 MG SUSTAINED RELEASE TAB PO SCH (08:46)
[2017-02-18] MEDS: FUROSEMIDE 20 MG TAB PO SCH (08:46)
[2017-02-18] MEDS: DOCUSATE SODIUM 100 MG CAP PO SCH ×2 (08:46→20:14)
[2017-02-18] MEDS: METOPROLOL TARTRATE 25 MG TAB PO SCH (08:46)
[2017-02-18] MEDS: POTASSIUM CHLORIDE 25 MEQ EFFERVESCENT TAB NG SCH (08:47)
[2017-02-18] MEDS: MULTIVITAMIN TAB PO SCH (08:47)
[2017-02-18] MEDS: ALPRAZolam 0.25 MG TAB PO PRN ×2 (08:48→18:39)
[2017-02-18] MEDS: cefTRIAXone INJ 2,000 MG in SODIUM CHLORIDE 0.9% INJ 100 ML IV SCH (08:48)
[2017-02-18] MEDS: FAMOTIDINE 20 MG TAB PO SCH ×2 (08:48→20:14)
[2017-02-18] MEDS: CYANOCOBALAMIN 1,000 MCG TAB PO SCH (08:48)
[2017-02-18] MEDS: FOLIC ACID 1 MG TAB PO SCH (08:50)
[2017-02-18] MEDS: SODIUM CHLORIDE 0.9% FLUSH 10 ML FLUSH IV FLUSH SCH ×2 (08:50→20:14)
[2017-02-18] MEDS ORDERED: POTASSIUM CHLORIDE 25 MEQ EFFERVESCENT TAB PO ONE (09:30)
--- NOTE | 2017-02-18 10:31 | PD.CONS ---
[facility] By Dr. Osman Reason for Consult Medical management Primary Care Physician Corby Rojas MD Diagnoses: (1) Small bowel obstruction due to adhesions History of Present Illness This is a 46-year-old female with a prior history of yvon-en-y gastric bypass surgery who presented with abdominal pain found to have small bowel obstruction due to adhesions. In the ER are patient aspirated became hypoxic so was transferred to the [facility] after the procedure. Patient was treated for her aspiration pneumonia initially with cefepime and later transitioned to Rocephin. She was on the intensive care service and she was intubated. In which she had an NG tube placed and later successfully extubated on 02/15/2017. During the hospital course patient also received IV Lasix. Patient seen at the bedside with her mother. She denies any shortness of breathing or cough. She stated that she is doing well. She is very anxious to go home. Patient had oxygen saturation at 93% on 1 L. She is asking to stop the Lasix and stated that she does not have any more fluid. Patient also asked if I can give her an elixir type of potassium instead of the effervescent. She did not like the taste. Pain is controlled. All other review of system reviewed and negative. Past Family Social History Allergies: Coded Allergies: Sulfa (Sulfonamide Antibiotics) (Unverified Allergy, Severe, Hives, ) adhesive (Unverified Allergy, Severe, SKIN BREAKDOWN, 02/11/17) diatrizoate meglumine (Unverified Allergy, Severe, shortness of breath and hives, 02/11/17) gadobenic acid (Unverified Allergy, Severe, shortness of breath and hives , 02/11/17) gadodiamide (Unverified Allergy, Severe, shortness of breath and hives, ) gadoteridol (Unverified Allergy, Severe, shortness of breath and hives, ) iodixanol (Unverified Allergy, Severe, shortness of breath and hives, ) iohexol (Unverified Allergy, Severe, shortness of breath and hives, ) *MDRO Multi-Drug Resistant Organism (Verified Adverse Reaction, Unknown, 02/11/17) ESBL (sputum) - 2012 Past Medical History Hypertension History of diabetes and hyperlipidemia that resolved after gastric bypass Depression GERD Past Surgical History Gastric bypass, hernia repair, bowel resection, appendectomy, D&C 3, hysterectomy/BSO Reported Medications Reported Meds & Active Scripts Active Ibuprofen 600 Mg Tab 600 Mg PO Q8HR 5 Days Reported Hydrocodone-Acetaminophen 5-325 mg Tab 1 Tab PO Q4H PRN Ursodiol 300 Mg Cap 300 Mg PO BID Magnesium Oxide 400 Mg Tab 400 Mg PO DIRECTED Alprazolam 0.25 Mg Tab 0.25 Mg PO Q4H PRN Docusate Sodium 100 Mg Cap 200 Mg PO DAILY Clonazepam 0.5 Mg Tab 0.5 Mg PO BID Metoprolol Tartrate 25 Mg Tab 12.5 Mg PO DAILY Mobic (Meloxicam) 7.5 Mg Tab 7.5 Mg PO DAILY Lexapro (Escitalopram Oxalate) 20 Mg Tab 20 Mg PO DAILY Magnesium Citrate 100 Mg Tab 100 Mg PO BID Folic Acid 0.4 Mg Tab 400 Mcg PO DAILY Calcium Carbonate 1,500 Mg Tab 1,500 Mg PO BID 1,500 mg calcium carbonate (600 mg elemental calcium) Omeprazole 20 Mg Tab 20 Mg PO DAILY Multi-Vitamin Daily (Multiple Vitamin) 1 Tab Tab 1 Tab PO DAILY B12 (Cyanocobalamin) 1,000 Mcg Tab 1 Tab PO DAILY Wellbutrin Xl 24 HR (Bupropion HCl) 300 Mg Tab 300 Mg PO DAILY Active Ordered Medications Current Medications Ondansetron HCl (Zofran Inj) 4 mg ONCE ONCE IVP Last administered on 03:32; Start 02/11/17 at 03:30; Stop 02/11/17 at 03:31; Status DC Sodium Chloride 1,000 ml @ 1,000 mls/hr Q1H IV Last administered on 03:31; Start 02/11/17 at 03:16; Stop 02/11/17 at 04:15; Status DC Sodium Chloride (NS Flush) 2 ml UNSCH PRN IV FLUSH FLUSH AFTER USING IV ACCESS Last administered on 02/11/17 04:50; Start 02/11/17 at 03:30; Stop 02/11/17 at 13:54; Status DC Ketorolac Tromethamine (Toradol Inj) 30 mg ONCE ONCE IVP Last administered on 02/11/17 03:32; Start 02/11/17 at 03:30; Stop 02/11/17 at 03:31; Status DC Hydromorphone HCl (Dilaudid Pf Inj) 1 mg ONCE ONCE IV PUSH Last administered on 02/11/17 03:31; Start 02/11/17 at 03:30; Stop 02/11/17 at 03:31; Status DC Hydromorphone HCl (Dilaudid Pf Inj) 0.5 mg ONCE ONCE IVS Last administered on 02/11/17 04:45; Start 02/11/17 at 04:45; Stop 02/11/17 at 04:46; Status DC Ondansetron HCl (Zofran Inj) 4 mg ONCE ONCE IVP Last administered on 04:45; Start 02/11/17 at 04:45; Stop 02/11/17 at 04:46; Status DC Bupivacaine HCl/ Epinephrine Bitart (Sensorcaine-Epinephrine 0.25% Inj) 50 ml STK-MED ONCE .ROUTE Last administered on 02/11/17 11:04; Start 02/11/17 at 09:14; Stop 02/11/17 at 09:15; Status DC Ondansetron HCl (Zofran Inj) 4 mg STK-MED ONCE .ROUTE ; Start 02/11/17 at 09:30 ; Stop 02/11/17 at 09:31; Status DC Methylprednisolone Sodium Succinate (SoluMEDROL INJ) 125 mg STK-MED ONCE .ROUTE ; Start 02/11/17 at 09:57; Stop 02/11/17 at 09:58; Status DC Cefazolin Sodium (Ancef Inj) 1,000 mg STK-MED ONCE .ROUTE ; Start 02/11/17 at 10:08; Stop 02/11/17 at 10:09; Status DC Cefazolin Sodium (Ancef Inj) 3,000 mg ONCE ONCE IV ; Start 02/11/17 at 10:10; Stop 02/11/17 at 11:11; Status DC Vecuronium [place] (Norcuron 20 Mg Inj) 20 mg STK-MED ONCE .ROUTE ; Start 02/11 at 12:07; Stop 02/11/17 at 12:08; Status DC Albuterol Sulfate (Albuterol Neb) 2.5 mg STK-MED ONCE .ROUTE ; Start 02/11/17 at 12:34; Stop 02/11/17 at 12:35; Status DC Propofol 100 ml @ As Directed STK-MED ONCE .ROUTE ; Start 02/11/17 at 13:22; Stop 02/11/17 at 13:23; Status DC Sodium Chloride 1,000 ml @ 50 mls/hr Q20H IV Last administered on 02/11/17t 15:29; Start 02/11/17 at 14:00; Stop 02/12/17 at 04:13; Status DC Sodium Chloride (NS Flush) 2 ml UNSCH PRN IV FLUSH FLUSH AFTER USING IV ACCESS ; Start 02/11/17 at 13:45 Sodium Chloride (NS Flush) 2 ml BID IV FLUSH Last administered on 02/18/17at 08: 50; Start 02/11/17 at 21:00 Ondansetron HCl (Zofran Inj) 4 mg Q4H PRN IV PUSH NAUSEA OR VOMITING; Start at 13:45 Metoclopramide HCl (Reglan Inj) 10 mg Q6H PRN IVS NAUSEA OR VOMITING; Start at 13:45 Docusate Sodium (Colace) 100 mg BID PO Last administered on 02/18/17at 08:46; Start 02/11/17 at 21:00 Magnesium Hydroxide (Milk Of Magnesia Liq) 30 ml Q6H PRN PO CONSTIPATION; Start 02/11/17 at 13:45 Miscellaneous Information (Post-op Orders (for Pharmacy)) STAT ONCE XX ; Start 02/11/17 at 13:56; Stop 02/11/17 at 14:01; Status DC Enoxaparin Sodium (Lovenox Inj) 40 mg Q24H SQ ; Start 02/12/17 at 13:00; Status Cancel Naloxone HCl (Narcan Inj) 0.4 mg UNSCH PRN IV PUSH RESPIRATORY RATE LESS THAN 10; Start 02/11/17 at 13:45; Stop 02/15/17 at 07:15; Status DC Morphine Sulfate (Morphine 1 Mg/ ml TAPPING MACHINE OPERATOR) 30 mg UNSCH IV ; Start 02/11/17 at 13: 45; Stop 02/15/17 at 07:15; Status DC TAPPING MACHINE OPERATOR Dosage Infused (Pha) 1 Q8HR .XX ; Start 02/11/17 at 14:00; Stop 02/15/17 at 07:15; Status DC Chlorhexidine Gluconate (Peridex 0.12% Liq) 15 ml BID@08,20 MT Last administered on 02/17/17at 08:00; Start 02/11/17 at 20:00 Propofol 100 ml @ 3.87 mls/hr TITRATE PRN IV SEDATION; Start 02/11/17 at 14: 30; Stop 02/11/17 at 14:30; Status DC Fentanyl Citrate (fentaNYL INJ) 100 mcg ONCE ONCE IV PUSH ; Start 02/11/17 at 14:30; Stop 02/11/17 at 14:31; Status DC Fentanyl Citrate 250 ml @ 5 mls/hr TITRATE PRN IV SEDATION Last administered on 02/13/17at 06:10; Start 02/11/17 at 14:30; Stop 02/16/17 at 09:14; Status DC Ceftriaxone Sodium 1000 mg/ Sodium Chloride 100 ml @ 200 mls/hr Q24H IV Last administered on 02/11/17t 15:00; Start 02/11/17 at 15:00; Stop 02/12/17 at 15: 27; Status DC Propofol 100 ml @ 3.87 mls/hr TITRATE PRN IV SEDATION Last administered on 02/15 05:08; Start 02/11/17 at 14:30; Stop 02/16/17 at 09:14; Status DC Clindamycin/ Sodium Chloride 50 ml @ 100 mls/hr Q8H IV Last administered on 02/17/17at 08:11; Start 02/11/17 at 16:00; Stop 02/17/17 at 09:11; Status DC Midazolam HCl (Versed Inj) 10 mg STK-MED ONCE .ROUTE Last administered on 02/11t 14:50; Start 02/11/17 at 14:50; Stop 02/11/17 at 14:51; Status DC Midazolam HCl 100 ml @ 2 mls/hr TITRATE PRN IV SEDATION Last administered on 05:21; Start 02/11/17 at 16:45; Stop 02/15/17 at 07:15; Status DC Famotidine (Pepcid Inj) 20 mg Q12H IV PUSH Last administered on 02/17/17 08:13 ; Start 02/11/17 at 21:00; Stop 02/17/17 at 09:11; Status DC Bupropion HCl (Wellbutrin Sr) 300 mg DAILY PO Last administered on 02/18/17at 08: 46; Start 02/12/17 at 09:00 Escitalopram Oxalate (Lexapro) 20 mg DAILY PO ; Start 02/12/17 at 09:00; Stop 02/16/17 at 16:36; Status DC Metoprolol Tartrate (Lopressor) 12.5 mg DAILY PO Last administered on 02/18/17at 08:46; Start 02/12/17 at 09:00 Miscellaneous (Pill Splitter) 1 ea UNSCH PRN OTHER SEE LABEL COMMENTS; Start 02/11/17 at 16:45 Potassium Chloride 100 ml @ 50 mls/hr Q2H PRN IV For Potassium 2.8 - 3.2 mEq/L ; Start 02/11/17 at 17:30; Stop 02/17/17 at 19:54; Status DC Potassium Chloride 100 ml @ 50 mls/hr Q2H PRN IV For Potassium 2.8 - 3.2 mEq/L ; Start 02/11/17 at 17:30; Stop 02/17/17 at 19:54; Status DC Potassium Bicarb/ Potassium Chloride (K-Lyte Cl Eff) 50 meq UNSCH PRN PO For Potassium 3.3 - 3.5 mEq/L; Start 02/11/17 at 17:30; Stop 02/17/17 at 19:54; Status DC Potassium Chloride 100 ml @ 25 mls/hr UNSCH PRN IV For Potassium 3.3 - 3.5 mEq /L Last administered on 02/14/17at 09:48; Start 02/11/17 at 17:30; Stop 02/17/17 at 19:55; Status DC Potassium Chloride 100 ml @ 50 mls/hr Q2H PRN IV For Potassium 3.3 - 3.5 mEq/ L Last administered on 02/13/17at 10:55; Start 02/11/17 at 17:30; Stop 02/17/17 at 19:55; Status DC Magnesium Sulfate 4 gm/Sodium Chloride 100 ml @ 50 mls/hr UNSCH PRN IV For Magnesium 0.9 - 1.1 mg/dL; Start 02/11/17 at 17:30; Stop 02/17/17 at 19:53; Status DC Magnesium Oxide (Mag-Ox) 800 mg UNSCH PRN PO For Magnesium 1.2 - 1.6 mg/dL; Start 02/11/17 at 17:30; Stop 02/17/17 at 19:55; Status DC Magnesium Sulfate 2 gm/Sodium Chloride 100 ml @ 50 mls/hr UNSCH PRN IV For Magnesium 1.2 - 1.6 mg/dL; Start 02/11/17 at 17:30; Stop 02/17/17 at 19:55; Status DC Potassium Phosphate (K-Phos) 2,000 mg Q4H PRN PO For Phosphorus < 2.5 mg/dL; Start 02/11/17 at 17:30; Stop 02/17/17 at 19:56; Status DC Sodium Phosphate 30 mmol/Sodium Chloride 250 ml @ 42 mls/hr UNSCH PRN IV For Phosphorus < 2.5 mg/dL; Start 02/11/17 at 17:30; Stop 02/17/17 at 19:56; Status DC Potassium Phosphate (K-Phos) 2,000 mg UNSCH PRN PO/TUBE SEE LABEL COMMENTS; Start 02/11/17 at 17:30; Stop 02/17/17 at 19:56; Status DC Potassium Phosphate 30 mmol/ Sodium Chloride 260 ml @ 42 mls/hr UNSCH PRN IV SEE LABEL COMMENTS; Start 02/11/17 at 17:30; Stop 02/17/17 at 19:56; Status DC Norepinephrine Bitartrate 250 ml @ As Directed STK-MED ONCE IV Last administered on 02/12/17at 01:51; Start 02/12/17 at 01:51; Stop 02/12/17 at 01:52; Status DC Sodium Chloride 1,000 ml @ 100 mls/hr Q10H IV Last administered on 02/13/17at 01 :31; Start 02/12/17 at 04:15; Stop 02/13/17 at 08:09; Status DC Norepinephrine Bitartrate 250 ml @ 7.5 mls/hr TITRATE PRN IV Maintain MAP > 65 mmHg; Start 02/12/17 at 04:15; Stop 02/16/17 at 09:14; Status DC Enoxaparin Sodium (Lovenox Inj) 40 mg Q12H SQ Last administered on 02/17/17at 22: 20; Start 02/12/17 at 13:00 Cefepime HCl 2000 mg/Sodium Chloride 100 ml @ 200 mls/hr Q8HR IV Last administered on 02/17/17at 06:00; Start 02/12/17 at 16:00; Stop 02/17/17 at 09:11; Status DC Furosemide (Lasix Inj) 40 mg ONCE ONCE IV PUSH Last administered on 02/13/17at 09:06; Start 02/13/17 at 08:30; Stop 02/13/17 at 08:31; Status DC Albuterol/ Ipratropium (Duoneb Neb) 1 ampule Q4HR NEB NEB Last administered on 02/15/17at 07:27; Start 02/13/17 at 08:30; Stop 02/15/17 at 10:52; Status DC Albuterol/ Ipratropium (Duoneb Neb) 1 ampule Q2HR NEB PRN NEB wheezing, SOB Last administered on 02/15/17at 11:41; Start 02/13/17 at 08:30 Furosemide (Lasix Inj) 40 mg BID@09,18 IV PUSH Last administered on 02/17/17at 08 :13; Start 02/13/17 at 18:00; Stop 02/17/17 at 09:11; Status DC Potassium Bicarb/ Potassium Chloride (K-Lyte Cl Eff) 25 meq DAILY NG Last administered on 02/18/17at 08:47; Start 02/13/17 at 10:15 Lactated Ringer's 2,000 ml @ As Directed STK-MED ONCE IV ; Start 02/11/17 at 12:00; Stop 02/13/17 at 16:22; Status DC Parenteral Electrolytes 2,000 ml @ As Directed STK-MED ONCE IV ; Start at 12:00; Stop 02/13/17 at 16:22; Status DC Lidocaine HCl (Xylocaine-Mpf 1% Inj) 5 ml STK-MED ONCE OTHER ; Start 02/11/17 at 12:00; Stop 02/13/17 at 16:22; Status DC Rocuronium [place] (Zemuron Inj) 50 mg STK-MED ONCE IV PUSH ; Start 02/11/17 at 12:00; Stop 02/13/17 at 16:22; Status DC Phenylephrine HCl (Neosynephrine/ NS 1000 Mcg/10ml Syr) 1,000 mcg STK-MED ONCE IV ; Start 02/11/17 at 12:00; Stop 02/13/17 at 16:22; Status DC Ephedrine Sulfate (ePHEDrine/NS 25 MG/5 ML SYR) 50 mg STK-MED ONCE IV ; Start 02/11/17 at 12:00; Stop 02/13/17 at 16:22; Status DC Succinylcholine Chloride (Quelicin Inj) 100 mg STK-MED ONCE IV PUSH ; Start at 12:00; Stop 02/13/17 at 16:22; Status DC Vecuronium [place] (Norcuron 20 Mg Inj) 20 mg STK-MED ONCE IV ; Start 02/11/17 at 12:00; Stop 02/13/17 at 16:22; Status DC Cefazolin Sodium (Ancef Inj) 2,000 mg STK-MED ONCE IV ; Start 02/11/17 at 12:00 ; Stop 02/13/17 at 16:22; Status DC Propofol (Diprivan 200 Mg/20 ml Inj) 400 mg STK-MED ONCE IV ; Start 02/11/17 at 12:00; Stop 02/13/17 at 16:22; Status DC Sterile Water (Sterile Water For Injection) 20 ml STK-MED ONCE IV ; Start 02/11 at 12:00; Stop 02/13/17 at 16:22; Status DC Sodium Chloride (Sodium Chloride 0.9% Inj) 20 ml STK-MED ONCE IV ; Start at 12:00; Stop 02/13/17 at 16:22; Status DC Acetaminophen 100 ml @ 400 mls/hr Q6H PRN IV FEVER Last administered on at 16:36; Start 02/14/17 at 09:30 Furosemide (Lasix Inj) 20 mg ONCE ONCE IV PUSH Last administered on 02/15/17at 07:39; Start 02/15/17 at 07:15; Stop 02/15/17 at 07:37; Status DC Potassium Chloride 100 ml @ 25 mls/hr BOLUS ONCE IV Last administered on at 07:49; Start 02/15/17 at 07:30; Stop 02/15/17 at 11:29; Status DC Albuterol/ Ipratropium (Duoneb Neb) 1 ampule Q6HR NEB NEB Last administered on 02/18/17 08:35; Start 02/15/17 at 16:00 Alprazolam (Xanax) 0.25 mg Q4H PRN PO ANXIETY Last administered on 02/18/17 08: 48; Start 02/16/17 at 09:15 Folic Acid (Folate) 1 mg DAILY PO Last administered on 02/18/17 08:50; Start at 09:30 Cyanocobalamin (Vitamin B12) 1,000 mcg DAILY PO Last administered on 02/18/17 08:48; Start 02/16/17 at 09:30 Multivitamins (Theragran) 1 tab DAILY PO Last administered on 02/18/17 08:47; Start 02/17/17 at 09:00 Potassium Chloride (KCl) 20 meq NOW ONCE PO Last administered on 02/16/17at 17: 09; Start 02/16/17 at 16:45; Stop 02/16/17 at 16:46; Status DC Escitalopram Oxalate (Lexapro) 20 mg HS PO Last administered on 02/17/17at 20:31 ; Start 02/16/17 at 21:00 Ceftriaxone Sodium 2000 mg/ Sodium Chloride 100 ml @ 200 mls/hr Q24H IV Last administered on 02/18/17 08:48; Start 02/17/17 at 10:00 Furosemide (Lasix) 20 mg BID@09,18 PO Last administered on 02/18/17at 08:46; Start 02/17/17 at 18:00 Famotidine (Pepcid) 20 mg BID PO Last administered on 02/18/17at 08:48; Start 02/17/17 at 21:00 Trazodone HCl (Desyrel) 100 mg HS PO Last administered on 02/17/17at 22:20; Start 02/17/17 at 21:00 Clonazepam (KlonoPIN) 0.25 mg Q4H PRN PO ANXIETY; Start 02/17/17 at 11:00 Potassium Bicarb/ Potassium Chloride (K-Lyte Cl Eff) 50 meq ONCE ONCE PO ; Start 02/18/17 at 09:30; Stop 02/18/17 at 09:31; Status DC Family History Review past family history noncontributory. Social History Denies any alcohol, tobacco, illicit drug use. Physical Exam Vital Signs Vital Signs Date Time Temp Pulse Resp B/P (MAP) Pulse Ox O2 Delivery O2 Flow Rate FiO2 02/18/17 09:02 92 02/18/17 08:37 95 Nasal Cannula 2.00 02/18/17 08:00 96.0 68 16 131/62 (85) 91 02/17/17 23:10 97.5 95 20 127/60 (82) 93 02/17/17 22:27 Nasal Cannula 1.00 02/17/17 21:51 92 Nasal Cannula 1.00 02/17/17 20:00 69 02/17/17 20:00 98.2 69 15 122/57 (78) 93 02/17/17 20:00 93 Nasal Cannula 1.00 02/17/17 18:00 76 02/17/17 16:00 76 02/17/17 16:00 99.7 76 18 120/59 (79) 92 02/17/17 14:00 72 02/17/17 12:00 64 02/17/17 12:00 98.1 64 18 121/58 (79) 97 02/17/17 10:51 96 Nasal Cannula 4.00 Physical Exam GENERAL: This is a well-nourished, well-developed patient, in no apparent distress. SKIN: No rashes, ecchymoses or lesions. Cool and dry. HEAD: Atraumatic. Normocephalic. No temporal or scalp tenderness. EYES: Pupils equal round and reactive. Extraocular motions intact. No scleral icterus. No injection or drainage. ENT: Nose without bleeding, purulent drainage or septal hematoma. Throat without erythema, tonsillar hypertrophy or exudate. Uvula midline. Airway patent. NECK: Trachea midline. No JVD or lymphadenopathy. Supple, nontender, no meningeal signs. CARDIOVASCULAR: Regular rate and rhythm without murmurs, gallops, or rubs. RESPIRATORY: Clear to auscultation. Breath sounds equal bilaterally. No wheezes , rales, or rhonchi. GASTROINTESTINAL: Abdomen soft, non-tender, nondistended. No hepato-splenomegaly , or palpable masses. No guarding. Wound dry clean and intact MUSCULOSKELETAL: Extremities without clubbing, cyanosis, or edema. No joint tenderness, effusion, or edema noted. No calf tenderness. Negative Homans sign bilaterally. NEUROLOGICAL: Awake and alert. Cranial nerves II through XII intact. Motor and sensory grossly within normal limits. Five out of 5 muscle strength in all muscle groups. Normal speech. Laboratory Laboratory Tests Test 02/17/17 15:22 02/18/17 07:00 Potassium Level 3.8 3.0 White Blood Count 4.5 Red Blood Count 3.72 Hemoglobin 10.7 Hematocrit 32.0 Mean Corpuscular Volume 86.0 Mean Corpuscular Hemoglobin 28.8 Mean Corpuscular Hemoglobin Concent 33.5 Red Cell Distribution Width 12.9 Platelet Count 155 Mean Platelet Volume 8.6 Neutrophils (%) (Auto) 67.4 Lymphocytes (%) (Auto) 20.2 Monocytes (%) (Auto) 7.7 Eosinophils (%) (Auto) 3.4 Basophils (%) (Auto) 1.3 Neutrophils # (Auto) 3.0 Lymphocytes # (Auto) 0.9 Monocytes # (Auto) 0.3 Eosinophils # (Auto) 0.2 Basophils # (Auto) 0.1 CBC Comment DIFF FINAL Differential Comment Blood Urea Nitrogen 12 Creatinine 0.51 Random Glucose 282 Total Protein 5.9 Albumin 2.1 Calcium Level 8.5 Alkaline Phosphatase 78 Aspartate Amino Transf (AST/SGOT) 10 Alanine Aminotransferase (ALT/SGPT) 12 Total Bilirubin 0.5 Sodium Level 137 Chloride Level 95 Carbon Dioxide Level 33.4 Anion Gap 9 Estimat Glomerular Filtration Rate 129 Date/Time Source Procedure Growth Status 02/14/17 09:35 Blood Peripheral Aerobic Blood Culture - Preliminary NO GROWTH IN 3 DAYS Resulted 02/14/17 09:35 Blood Peripheral Anaerobic Blood Culture - Preliminary NO GROWTH IN 3 DAYS Resulted 02/14/17 10:00 Sputum Endotracheal Gram Stain - Final Complete 02/14/17 10:00 Sputum Culture - Final Escherichia Coli Klebsiella Pneumoniae Complete 02/14/17 10:00 Urine Catheterized Urine Legionella Antigen - Final PRESUMPTIVE NEGATIVE FOR LEGIONELLA P... Complete 02/14/17 10:00 Urine Catheterized Urine Streptococcus pneumoniae Antigen (M - Final PRESUMPTIVE NEGATIVE FOR STREPTOCOCCU... Complete Result Diagram: 02/18/17 0700 02/18/17 0700 Imaging Last Impressions Chest X-Ray 02/17/17 0000 Signed Impressions: Service Date/Time: Friday, February 17, 2017 09:37 - CONCLUSION: Persistent diffuse infiltrates bilaterally which are stable. Shiraz Garcia MD Chest CT 02/14/17 0000 Signed Impressions: Service Date/Time: Tuesday, February 14, 2017 15:50 - CONCLUSION: Airspace disease perihilar without air bronchograms suspicious for RDS. There is no pleural effusion. Adams Saravia MD FACR Abdomen/Pelvis CT 02/11/17 0316 Signed Impressions: Service Date/Time: Saturday, February 11, 2017 03:45 - CONCLUSION: 1. Previous gastric bypass. High-grade obstruction of the Yvon limb, probably at the jejunal anastomosis. 2. Recurrent umbilical hernia containing a short segment of distal small bowel, not acutely contributory. Zak Guerrero MD Assessment and Plan Problem List: (1) Small bowel obstruction due to adhesions ICD Code: K56.50 - Intestinal adhesions [bands], unspecified as to partial versus complete obstruction Status: Acute Assessment and Plan This is a 46-year-old female who presented with small bowel obstruction consultation during surgery which patient aspirated and require intubation Acute Hypoxemic Respiratory Failure-resolved. -Secondary to aspiration pneumonia. Status post intubation and extubation on 02/15/2017. 2D Echo normal EF. Mild CT/TR -Patient was on cefepime now on Rocephin. Sputum cultures grew Escherichia coli and Klebsiella pneumonia sensitive to Levaquin. Will discontinue Rocephin and start Levaquin. Chest x-ray done on 02/17/2017 shows diffuse infiltrate that has been stable. -Clinically improving. Currently on 1 L of oxygen Will wean as tolerated. Will do a walk test to evaluate for home oxygen. Patient on DuoNeb's. -Patient also given Lasix secondary to being volume overloaded. She actually looks euvolemic at the moment. Will discontinue Lasix. Small bowel obstruction -Status post laparoscopic lysis of adhesions. -Clinically doing well. Management per general surgeon. Sepsis -Secondary to aspiration pneumonia. Blood cultures negative. See treatment for pneumonia as above. -Resolved. Anxiety - Home medication already resumed. Hypokalemia -Will replenish. E Coli UTI on arrival to ED resolved. - DC clindamycin and cefepime. -Last urine cultures negative. -Currently on Rocephin that will be discontinued. Will place patient on Levaquin. Px - Lovenox and Pepcid Code Status full Discussed Condition With patient, her mom, and her nurse. Naz Nguyen MD Feb 18, 2017 10:30
[2017-02-18] MEDS: ENOXAPARIN SODIUM 40 MG/0.4 ML SYRINGE SQ SCH ×2 (14:13→22:52)
[2017-02-18] MEDS ORDERED: OXYGENDME NAS.CANULA (15:50)
--- NOTE | 2017-02-18 15:58 | HHI.PR ---
Subjective Subjective Notes The patient continues to feel well but had desaturation to the 80s while she was walking earlier today. She is being maintained currently on 3 L/m nasal cannula which is a new situation for her. She continues to tolerate a regular diet and has had a small bowel movement today. She absolutely no pain and is regaining her strength easily. Objective Vitals/I&O Vital Signs Date Time Temp Pulse Resp B/P (MAP) Pulse Ox O2 Delivery O2 Flow Rate FiO2 02/18/17 12:39 3.00 02/18/17 12:00 97.7 77 18 129/58 (81) 97 02/18/17 08:37 Nasal Cannula 02/16/17 04:21 45 Labs Laboratory Tests Test 02/18/17 07:00 02/18/17 13:30 White Blood Count 4.5 Red Blood Count 3.72 Hemoglobin 10.7 Hematocrit 32.0 Mean Corpuscular Volume 86.0 Mean Corpuscular Hemoglobin 28.8 Mean Corpuscular Hemoglobin Concent 33.5 Red Cell Distribution Width 12.9 Platelet Count 155 Mean Platelet Volume 8.6 Neutrophils (%) (Auto) 67.4 Lymphocytes (%) (Auto) 20.2 Monocytes (%) (Auto) 7.7 Eosinophils (%) (Auto) 3.4 Basophils (%) (Auto) 1.3 Neutrophils # (Auto) 3.0 Lymphocytes # (Auto) 0.9 Monocytes # (Auto) 0.3 Eosinophils # (Auto) 0.2 Basophils # (Auto) 0.1 CBC Comment DIFF FINAL Differential Comment Blood Urea Nitrogen 12 Creatinine 0.51 Random Glucose 282 Total Protein 5.9 Albumin 2.1 Calcium Level 8.5 Alkaline Phosphatase 78 Aspartate Amino Transf (AST/SGOT) 10 Alanine Aminotransferase (ALT/SGPT) 12 Total Bilirubin 0.5 Sodium Level 137 Potassium Level 3.0 3.2 Chloride Level 95 Carbon Dioxide Level 33.4 Anion Gap 9 Estimat Glomerular Filtration Rate 129 B-Type Natriuretic Peptide 18 Date/Time Source Procedure Growth Status 02/14/17 09:35 Blood Peripheral Aerobic Blood Culture - Preliminary NO GROWTH IN 4 DAYS Resulted 02/14/17 09:35 Blood Peripheral Anaerobic Blood Culture - Preliminary NO GROWTH IN 4 DAYS Resulted 02/14/17 10:00 Sputum Endotracheal Gram Stain - Final Complete 02/14/17 10:00 Sputum Culture - Final Escherichia Coli Klebsiella Pneumoniae Complete 02/14/17 10:00 Urine Catheterized Urine Legionella Antigen - Final PRESUMPTIVE NEGATIVE FOR LEGIONELLA P... Complete 02/14/17 10:00 Urine Catheterized Urine Streptococcus pneumoniae Antigen (M - Final PRESUMPTIVE NEGATIVE FOR STREPTOCOCCU... Complete Radiology Last Impressions Chest X-Ray 02/16/17 0600 Signed Impressions: Service Date/Time: Thursday, February 16, 2017 04:53 - CONCLUSION: No significant interval change in bilateral diffuse pulmonary opacity. Nasogastric tube and endotracheal tube no longer seen. Vasyl Grider MD Chest CT 02/14/17 0000 Signed Impressions: Service Date/Time: Tuesday, February 14, 2017 15:50 - CONCLUSION: Airspace disease perihilar without air bronchograms suspicious for RDS. There is no pleural effusion. Adams Saravia MD FACR Abdomen/Pelvis CT 02/11/17 0316 Signed Impressions: Service Date/Time: Saturday, February 11, 2017 03:45 - CONCLUSION: 1. Previous gastric bypass. 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 2. Recurrent umbilical hernia containing a short segment of distal small bowel, not acutely contributory. Zak Guerrero MD Cardiovascular: Regular Abdomen: Post-op tenderness Extremities: No edema A/P Assessment and Plan Impression: Status post laparoscopic lysis of adhesions. She is doing well overall, however her oxygen has been slightly to moderately low in the last couple of days. Otherwise she is having no problems. Plan: I have ordered a chest x-ray, ABGs, and CBC for the morning.. Gustavo Osman MD Feb 18, 2017 15:58
[2017-02-18] MEDS ORDERED: POTASSIUM CHLORIDE 10 MEQ CONTROLLED RELEASE TAB PO ONE (16:00)
[2017-02-18] MEDS: traZODone HCL 100 MG TAB PO SCH (20:14)
[2017-02-18] MEDS: ESCITALOPRAM OXALATE 20 MG TAB PO SCH (20:14)
[2017-02-19] MEDS: RESP: ALBUTEROL 2.5 MG/IPRATROPIUM 0.5 MG NEB (SCH) NEB ×3 (04:00→15:59)
[2017-02-19 07:25] LABS: AUTOMATED NEUTROPHIL # 3.9 TH/MM3 (1.8-7.7); BASOPHIL % 0.5 % (0.0-2.0); EOSINOPHIL # 0.1 TH/MM3 (0-0.4); HEMATOCRIT 31.1 % (35.0-46.0); HEMOGLOBIN 10.5 GM/DL (11.6-15.3); LYMPH % 16.5 % (9.0-44.0); LYMPHOCYTE # 0.8 TH/MM3 (1.0-4.8); MEAN CELL VOLUME 86.6 FL (80.0-100.0); MEAN CORPUSCULAR HEMOGLOBIN 29.1 PG (27.0-34.0); MEAN CORPUSCULAR HGB CONC 33.6 % (32.0-36.0); MEAN PLATELET VOLUME 9.3 FL (7.0-11.0); MONO % 5.9 % (0.0-8.0); MONOCYTE # 0.3 TH/MM3 (0-0.9); NEUT % 75.1 % (16.0-70.0); PLATELET COUNT 154 TH/MM3 (150-450); RED CELL DISTRIBUTION WIDTH 13.3 % (11.6-17.2); WHITE BLOOD COUNT 5.2 TH/MM3 (4.0-11.0)
[2017-02-19 07:47] LABS: BICARBONATE 32.3 MEQ/L (21.0-32.0); CALCIUM 8.3 MG/DL (8.5-10.1); CREATININE 0.51 MG/DL (0.50-1.00)
[2017-02-19 08:00] VITALS: BP 116/65; PULSE 80; RESP 18; TEMP 96.4; O2SAT 94
[2017-02-19] MEDS: CHLORHEXIDINE 0.12% (ORAL KIT) 15 ML CUP MT SCH (08:00)
[2017-02-19 08:54] VITALS: O2SAT 95
[2017-02-19] MEDS: CYANOCOBALAMIN 1,000 MCG TAB PO SCH (09:00)
[2017-02-19] MEDS: POTASSIUM CHLORIDE 25 MEQ EFFERVESCENT TAB NG SCH (09:00)
[2017-02-19] MEDS ORDERED: LEVOFLOXACIN 750 MG TAB PO SCH (09:00)
[2017-02-19] MEDS: buPROPion HCL 150 MG SUSTAINED RELEASE TAB PO SCH (09:04)
[2017-02-19] MEDS: METOPROLOL TARTRATE 25 MG TAB PO SCH (09:04)
[2017-02-19] MEDS: MULTIVITAMIN TAB PO SCH (09:04)
[2017-02-19] MEDS: FOLIC ACID 1 MG TAB PO SCH (09:04)
[2017-02-19] MEDS: FAMOTIDINE 20 MG TAB PO SCH (09:04)
[2017-02-19] MEDS: SODIUM CHLORIDE 0.9% FLUSH 10 ML FLUSH IV FLUSH SCH (09:05)
[2017-02-19] MEDS: DOCUSATE SODIUM 100 MG CAP PO SCH (09:05)
[2017-02-19] MEDS: ALPRAZolam 0.25 MG TAB PO PRN (09:14)
--- NOTE | 2017-02-19 09:58 | RADRPT ---
EXAM DATE/TIME: 02/19/2017 08:27 [place] COMPARISON: CHEST SINGLE AP, February 17, 2017, 9:37. CHEST PA & LAT, September 21, 2015, 21:08. INDICATIONS : Short of breath, weakness, evaluate atelectasis. Patient states she may have aspirated during surgery for small bowel obstruction MEDICAL HISTORY : Hypertension. Renal calculi. small bowel obstruction SURGICAL HISTORY : Appendectomy. Hysterectomy. Colon resection. gastric bypass ENCOUNTER: Subsequent ACUITY: 1 week PAIN SCORE: 0/10 LOCATION: Bilateral chest FINDINGS: Persistent diffuse patchy bilateral airspace opacities, unchanged from prior exam. No significant new lower lobe focal consolidation or pleural effusion. Cardiomediastinal contours are stable. Remainder of the exam is unchanged. CONCLUSION: 1. Stable diffuse patchy bilateral airspace opacities. 2. No new focal lower lobe air space consolidation or effusion to suggest interval aspiration. Freeman Vegas MD on February 19, 2017 at 9:52 Board Certified Radiologist. This report was verified electronically.
[2017-02-19] MEDS ORDERED: POTASSIUM CHLORIDE 20 MEQ CONTROLLED RELEASE TAB PO ONE (10:00)
--- NOTE | 2017-02-19 10:11 | HHI.PR ---
Subjective Remarks f/u for medical issues listed in assessment patient denied any SOB or cough. She is very anxious to go home. remains afebrile. walked hallways yesterday. Denied any N/V and tolerating oral intake. only concern is to go home. Objective Vitals Vital Signs Date Time Temp Pulse Resp B/P (MAP) Pulse Ox O2 Delivery O2 Flow Rate FiO2 02/19/17 08:54 95 Nasal Cannula 3.00 02/19/17 08:00 96.4 80 18 116/65 (82) 94 02/18/17 20:56 93 Nasal Cannula 2.00 02/18/17 20:23 Nasal Cannula 1.00 Humidified 02/18/17 20:00 97.2 75 16 111/56 (74) 93 02/18/17 16:00 98.6 78 18 126/59 (81) 94 02/18/17 12:39 3.00 02/18/17 12:00 97.7 77 18 129/58 (81) 97 I/O 02/18/17 02/18/17 02/18/17 02/19/17 02/19/17 02/19/17 07:00 15:00 23:00 07:00 15:00 23:00 Intake Total 360 ml 100 ml 1200 ml 240 ml Balance 360 ml 100 ml 1200 ml 240 ml Intake Oral 360 ml 1200 ml 240 ml IV Total 100 ml # Voids 2 3 2 # Bowel Movements 0 1 0 Result Diagram: 02/19/17 0653 02/19/17 0635 Imaging Last Impressions Chest X-Ray 02/19/17 0800 Signed Impressions: Service Date/Time: Sunday, February 19, 2017 08:27 - CONCLUSION: 1. Stable diffuse patchy bilateral airspace opacities. 2. No new focal lower lobe air space consolidation or effusion to suggest interval aspiration. Freeman Vegas MD Chest CT 02/14/17 0000 Signed Impressions: Service Date/Time: Tuesday, February 14, 2017 15:50 - CONCLUSION: Airspace disease perihilar without air bronchograms suspicious for RDS. There is no pleural effusion. Adams Saravia MD FACR Abdomen/Pelvis CT 02/11/17 0316 Signed Impressions: Service Date/Time: Saturday, February 11, 2017 03:45 - CONCLUSION: 1. Previous gastric bypass. 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 2. Recurrent umbilical hernia containing a short segment of distal small bowel, not acutely contributory. Zak Guerrero MD Objective Remarks GENERAL: in NAD CARDIOVASCULAR: Regular rate and rhythm without murmurs, gallops, or rubs. RESPIRATORY: Breath sounds equal bilaterally. No accessory muscle use. GASTROINTESTINAL: Abdomen soft, non-tender, nondistended. MUSCULOSKELETAL: No cyanosis, or edema. Medications and IVs Current Medications Ondansetron HCl (Zofran Inj) 4 mg ONCE ONCE IVP Last administered on 03:32; Start 02/11/17 at 03:30; Stop 02/11/17 at 03:31; Status DC Sodium Chloride 1,000 ml @ 1,000 mls/hr Q1H IV Last administered on 03:31; Start 02/11/17 at 03:16; Stop 02/11/17 at 04:15; Status DC Sodium Chloride (NS Flush) 2 ml UNSCH PRN IV FLUSH FLUSH AFTER USING IV ACCESS Last administered on 02/11/17 04:50; Start 02/11/17 at 03:30; Stop 02/11/17 at 13:54; Status DC Ketorolac Tromethamine (Toradol Inj) 30 mg ONCE ONCE IVP Last administered on 02/11/17 03:32; Start 02/11/17 at 03:30; Stop 02/11/17 at 03:31; Status DC Hydromorphone HCl (Dilaudid Pf Inj) 1 mg ONCE ONCE IV PUSH Last administered on 02/11/17 03:31; Start 02/11/17 at 03:30; Stop 02/11/17 at 03:31; Status DC Hydromorphone HCl (Dilaudid Pf Inj) 0.5 mg ONCE ONCE IVS Last administered on 02/11/17 04:45; Start 02/11/17 at 04:45; Stop 02/11/17 at 04:46; Status DC Ondansetron HCl (Zofran Inj) 4 mg ONCE ONCE IVP Last administered on 04:45; Start 02/11/17 at 04:45; Stop 02/11/17 at 04:46; Status DC Bupivacaine HCl/ Epinephrine Bitart (Sensorcaine-Epinephrine 0.25% Inj) 50 ml STK-MED ONCE .ROUTE Last administered on 02/11/17t 11:04; Start 02/11/17 at 09:14; Stop 02/11/17 at 09:15; Status DC Ondansetron HCl (Zofran Inj) 4 mg STK-MED ONCE .ROUTE ; Start 02/11/17 at 09:30 ; Stop 02/11/17 at 09:31; Status DC Methylprednisolone Sodium Succinate (SoluMEDROL INJ) 125 mg STK-MED ONCE .ROUTE ; Start 02/11/17 at 09:57; Stop 02/11/17 at 09:58; Status DC Cefazolin Sodium (Ancef Inj) 1,000 mg STK-MED ONCE .ROUTE ; Start 02/11/17 at 10:08; Stop 02/11/17 at 10:09; Status DC Cefazolin Sodium (Ancef Inj) 3,000 mg ONCE ONCE IV ; Start 02/11/17 at 10:10; Stop 02/11/17 at 11:11; Status DC Vecuronium Wild Rose (Norcuron 20 Mg Inj) 20 mg STK-MED ONCE .ROUTE ; Start 02/11 at 12:07; Stop 02/11/17 at 12:08; Status DC Albuterol Sulfate (Albuterol Neb) 2.5 mg STK-MED ONCE .ROUTE ; Start 02/11/17 at 12:34; Stop 02/11/17 at 12:35; Status DC Propofol 100 ml @ As Directed STK-MED ONCE .ROUTE ; Start 02/11/17 at 13:22; Stop 02/11/17 at 13:23; Status DC Sodium Chloride 1,000 ml @ 50 mls/hr Q20H IV Last administered on 02/11/17t 15:29; Start 02/11/17 at 14:00; Stop 02/12/17 at 04:13; Status DC Sodium Chloride (NS Flush) 2 ml UNSCH PRN IV FLUSH FLUSH AFTER USING IV ACCESS ; Start 02/11/17 at 13:45 Sodium Chloride (NS Flush) 2 ml BID IV FLUSH Last administered on 02/19/17at 09: 05; Start 02/11/17 at 21:00 Ondansetron HCl (Zofran Inj) 4 mg Q4H PRN IV PUSH NAUSEA OR VOMITING; Start at 13:45 Metoclopramide HCl (Reglan Inj) 10 mg Q6H PRN IVS NAUSEA OR VOMITING; Start at 13:45 Docusate Sodium (Colace) 100 mg BID PO Last administered on 02/19/17at 09:05; Start 02/11/17 at 21:00 Magnesium Hydroxide (Milk Of Magnesia Liq) 30 ml Q6H PRN PO CONSTIPATION; Start 02/11/17 at 13:45 Miscellaneous Information (Post-op Orders (for Pharmacy)) STAT ONCE XX ; Start 02/11/17 at 13:56; Stop 02/11/17 at 14:01; Status DC Enoxaparin Sodium (Lovenox Inj) 40 mg Q24H SQ ; Start 02/12/17 at 13:00; Status Cancel Naloxone HCl (Narcan Inj) 0.4 mg UNSCH PRN IV PUSH RESPIRATORY RATE LESS THAN 10; Start 02/11/17 at 13:45; Stop 02/15/17 at 07:15; Status DC Morphine Sulfate (Morphine 1 Mg/ ml MEDICAL BILLING ASSOCIATE) 30 mg UNSCH IV ; Start 02/11/17 at 13: 45; Stop 02/15/17 at 07:15; Status DC MEDICAL BILLING ASSOCIATE Dosage Infused (Pha) 1 Q8HR .XX ; Start 02/11/17 at 14:00; Stop 02/15/17 at 07:15; Status DC Chlorhexidine Gluconate (Peridex 0.12% Liq) 15 ml BID@08,20 MT Last administered on 02/17/17at 08:00; Start 02/11/17 at 20:00 Propofol 100 ml @ 3.87 mls/hr TITRATE PRN IV SEDATION; Start 02/11/17 at 14: 30; Stop 02/11/17 at 14:30; Status DC Fentanyl Citrate (fentaNYL INJ) 100 mcg ONCE ONCE IV PUSH ; Start 02/11/17 at 14:30; Stop 02/11/17 at 14:31; Status DC Fentanyl Citrate 250 ml @ 5 mls/hr TITRATE PRN IV SEDATION Last administered on 02/13/17at 06:10; Start 02/11/17 at 14:30; Stop 02/16/17 at 09:14; Status DC Ceftriaxone Sodium 1000 mg/ Sodium Chloride 100 ml @ 200 mls/hr Q24H IV Last administered on 02/11/17t 15:00; Start 02/11/17 at 15:00; Stop 02/12/17 at 15: 27; Status DC Propofol 100 ml @ 3.87 mls/hr TITRATE PRN IV SEDATION Last administered on 02/15at 05:08; Start 02/11/17 at 14:30; Stop 02/16/17 at 09:14; Status DC Clindamycin/ Sodium Chloride 50 ml @ 100 mls/hr Q8H IV Last administered on 02/17/17at 08:11; Start 02/11/17 at 16:00; Stop 02/17/17 at 09:11; Status DC Midazolam HCl (Versed Inj) 10 mg STK-MED ONCE .ROUTE Last administered on 02/11 14:50; Start 02/11/17 at 14:50; Stop 02/11/17 at 14:51; Status DC Midazolam HCl 100 ml @ 2 mls/hr TITRATE PRN IV SEDATION Last administered on 02/12/17at 05:21; Start 02/11/17 at 16:45; Stop 02/15/17 at 07:15; Status DC Famotidine (Pepcid Inj) 20 mg Q12H IV PUSH Last administered on 02/17/17at 08:13 ; Start 02/11/17 at 21:00; Stop 02/17/17 at 09:11; Status DC Bupropion HCl (Wellbutrin Sr) 300 mg DAILY PO Last administered on 02/19/17at 09: 04; Start 02/12/17 at 09:00 Escitalopram Oxalate (Lexapro) 20 mg DAILY PO ; Start 02/12/17 at 09:00; Stop 02/16/17 at 16:36; Status DC Metoprolol Tartrate (Lopressor) 12.5 mg DAILY PO Last administered on 02/19/17at 09:04; Start 02/12/17 at 09:00 Miscellaneous (Pill Splitter) 1 ea UNSCH PRN OTHER SEE LABEL COMMENTS; Start 02/11/17 at 16:45 Potassium Chloride 100 ml @ 50 mls/hr Q2H PRN IV For Potassium 2.8 - 3.2 mEq/L ; Start 02/11/17 at 17:30; Stop 02/17/17 at 19:54; Status DC Potassium Chloride 100 ml @ 50 mls/hr Q2H PRN IV For Potassium 2.8 - 3.2 mEq/L ; Start 02/11/17 at 17:30; Stop 02/17/17 at 19:54; Status DC Potassium Bicarb/ Potassium Chloride (K-Lyte Cl Eff) 50 meq UNSCH PRN PO For Potassium 3.3 - 3.5 mEq/L; Start 02/11/17 at 17:30; Stop 02/17/17 at 19:54; Status DC Potassium Chloride 100 ml @ 25 mls/hr UNSCH PRN IV For Potassium 3.3 - 3.5 mEq /L Last administered on 02/14/17at 09:48; Start 02/11/17 at 17:30; Stop 02/17/17 at 19:55; Status DC Potassium Chloride 100 ml @ 50 mls/hr Q2H PRN IV For Potassium 3.3 - 3.5 mEq/ L Last administered on 02/13/17at 10:55; Start 02/11/17 at 17:30; Stop 02/17/17 at 19:55; Status DC Magnesium Sulfate 4 gm/Sodium Chloride 100 ml @ 50 mls/hr UNSCH PRN IV For Magnesium 0.9 - 1.1 mg/dL; Start 02/11/17 at 17:30; Stop 02/17/17 at 19:53; Status DC Magnesium Oxide (Mag-Ox) 800 mg UNSCH PRN PO For Magnesium 1.2 - 1.6 mg/dL; Start 02/11/17 at 17:30; Stop 02/17/17 at 19:55; Status DC Magnesium Sulfate 2 gm/Sodium Chloride 100 ml @ 50 mls/hr UNSCH PRN IV For Magnesium 1.2 - 1.6 mg/dL; Start 02/11/17 at 17:30; Stop 02/17/17 at 19:55; Status DC Potassium Phosphate (K-Phos) 2,000 mg Q4H PRN PO For Phosphorus < 2.5 mg/dL; Start 02/11/17 at 17:30; Stop 02/17/17 at 19:56; Status DC Sodium Phosphate 30 mmol/Sodium Chloride 250 ml @ 42 mls/hr UNSCH PRN IV For Phosphorus < 2.5 mg/dL; Start 02/11/17 at 17:30; Stop 02/17/17 at 19:56; Status DC Potassium Phosphate (K-Phos) 2,000 mg UNSCH PRN PO/TUBE SEE LABEL COMMENTS; Start 02/11/17 at 17:30; Stop 02/17/17 at 19:56; Status DC Potassium Phosphate 30 mmol/ Sodium Chloride 260 ml @ 42 mls/hr UNSCH PRN IV SEE LABEL COMMENTS; Start 02/11/17 at 17:30; Stop 02/17/17 at 19:56; Status DC Norepinephrine Bitartrate 250 ml @ As Directed STK-MED ONCE IV Last administered on 02/12/17at 01:51; Start 02/12/17 at 01:51; Stop 02/12/17 at 01:52; Status DC Sodium Chloride 1,000 ml @ 100 mls/hr Q10H IV Last administered on 02/13/17at 01 :31; Start 02/12/17 at 04:15; Stop 02/13/17 at 08:09; Status DC Norepinephrine Bitartrate 250 ml @ 7.5 mls/hr TITRATE PRN IV Maintain MAP > 65 mmHg; Start 02/12/17 at 04:15; Stop 02/16/17 at 09:14; Status DC Enoxaparin Sodium (Lovenox Inj) 40 mg Q12H SQ Last administered on 02/18/17at 22: 52; Start 02/12/17 at 13:00 Cefepime HCl 2000 mg/Sodium Chloride 100 ml @ 200 mls/hr Q8HR IV Last administered on 02/17/17at 06:00; Start 02/12/17 at 16:00; Stop 02/17/17 at 09:11; Status DC Furosemide (Lasix Inj) 40 mg ONCE ONCE IV PUSH Last administered on 02/13/17at 09:06; Start 02/13/17 at 08:30; Stop 02/13/17 at 08:31; Status DC Albuterol/ Ipratropium (Duoneb Neb) 1 ampule Q4HR NEB NEB Last administered on 02/15/17at 07:27; Start 02/13/17 at 08:30; Stop 02/15/17 at 10:52; Status DC Albuterol/ Ipratropium (Duoneb Neb) 1 ampule Q2HR NEB PRN NEB wheezing, SOB Last administered on 02/15/17at 11:41; Start 02/13/17 at 08:30 Furosemide (Lasix Inj) 40 mg BID@,18 IV PUSH Last administered on 02/17/17at 08 :13; Start 02/13/17 at 18:00; Stop 02/17/17 at 09:11; Status DC Potassium Bicarb/ Potassium Chloride (K-Lyte Cl Eff) 25 meq DAILY NG Last administered on 02/18/17at 08:47; Start 02/13/17 at 10:15 Lactated Ringer's 2,000 ml @ As Directed STK-MED ONCE IV ; Start 02/11/17 at 12:00; Stop 02/13/17 at 16:22; Status DC Parenteral Electrolytes 2,000 ml @ As Directed STK-MED ONCE IV ; Start at 12:00; Stop 02/13/17 at 16:22; Status DC Lidocaine HCl (Xylocaine-Mpf 1% Inj) 5 ml STK-MED ONCE OTHER ; Start 02/11/17 at 12:00; Stop 02/13/17 at 16:22; Status DC Rocuronium Wild Rose (Zemuron Inj) 50 mg STK-MED ONCE IV PUSH ; Start 02/11/17 at 12:00; Stop 02/13/17 at 16:22; Status DC Phenylephrine HCl (Neosynephrine/ NS 1000 Mcg/10ml Syr) 1,000 mcg STK-MED ONCE IV ; Start 02/11/17 at 12:00; Stop 02/13/17 at 16:22; Status DC Ephedrine Sulfate (ePHEDrine/NS 25 MG/5 ML SYR) 50 mg STK-MED ONCE IV ; Start 02/11/17 at 12:00; Stop 02/13/17 at 16:22; Status DC Succinylcholine Chloride (Quelicin Inj) 100 mg STK-MED ONCE IV PUSH ; Start at 12:00; Stop 02/13/17 at 16:22; Status DC Vecuronium Wild Rose (Norcuron 20 Mg Inj) 20 mg STK-MED ONCE IV ; Start 02/11/17 at 12:00; Stop 02/13/17 at 16:22; Status DC Cefazolin Sodium (Ancef Inj) 2,000 mg STK-MED ONCE IV ; Start 02/11/17 at 12:00 ; Stop 02/13/17 at 16:22; Status DC Propofol (Diprivan 200 Mg/20 ml Inj) 400 mg STK-MED ONCE IV ; Start 02/11/17 at 12:00; Stop 02/13/17 at 16:22; Status DC Sterile Water (Sterile Water For Injection) 20 ml STK-MED ONCE IV ; Start 02/11 at 12:00; Stop 02/13/17 at 16:22; Status DC Sodium Chloride (Sodium Chloride 0.9% Inj) 20 ml STK-MED ONCE IV ; Start at 12:00; Stop 02/13/17 at 16:22; Status DC Acetaminophen 100 ml @ 400 mls/hr Q6H PRN IV FEVER Last administered on at 16:36; Start 02/14/17 at 09:30 Furosemide (Lasix Inj) 20 mg ONCE ONCE IV PUSH Last administered on 02/15/17at 07:39; Start 02/15/17 at 07:15; Stop 02/15/17 at 07:37; Status DC Potassium Chloride 100 ml @ 25 mls/hr BOLUS ONCE IV Last administered on at 07:49; Start 02/15/17 at 07:30; Stop 02/15/17 at 11:29; Status DC Albuterol/ Ipratropium (Duoneb Neb) 1 ampule Q6HR NEB NEB Last administered on 02/19/17at 08:52; Start 02/15/17 at 16:00 Alprazolam (Xanax) 0.25 mg Q4H PRN PO ANXIETY Last administered on 02/19/17at 09: 14; Start 02/16/17 at 09:15 Folic Acid (Folate) 1 mg DAILY PO Last administered on 02/19/17 09:04; Start at 09:30 Cyanocobalamin (Vitamin B12) 1,000 mcg DAILY PO Last administered on 02/19/17at 09:00; Start 02/16/17 at 09:30 Multivitamins (Theragran) 1 tab DAILY PO Last administered on 02/19/17 09:04; Start 02/17/17 at 09:00 Potassium Chloride (KCl) 20 meq NOW ONCE PO Last administered on 02/16/17at 17: 09; Start 02/16/17 at 16:45; Stop 02/16/17 at 16:46; Status DC Escitalopram Oxalate (Lexapro) 20 mg HS PO Last administered on 02/18/17at 20:14 ; Start 02/16/17 at 21:00 Ceftriaxone Sodium 2000 mg/ Sodium Chloride 100 ml @ 200 mls/hr Q24H IV Last administered on 02/18/17at 08:48; Start 02/17/17 at 10:00; Stop 02/18/17 at 13:53; Status DC Furosemide (Lasix) 20 mg BID@09,18 PO Last administered on 02/18/17at 08:46; Start 02/17/17 at 18:00; Stop 02/18/17 at 13:54; Status DC Famotidine (Pepcid) 20 mg BID PO Last administered on 02/19/17at 09:04; Start 02/17/17 at 21:00 Trazodone HCl (Desyrel) 100 mg HS PO Last administered on 02/18/17at 20:14; Start 02/17/17 at 21:00 Clonazepam (KlonoPIN) 0.25 mg Q4H PRN PO ANXIETY; Start 02/17/17 at 11:00 Potassium Bicarb/ Potassium Chloride (K-Lyte Cl Eff) 50 meq ONCE ONCE PO Last administered on 02/18/17at 14:11; Start 02/18/17 at 09:30; Stop 02/18/17 at 09: 31; Status DC Levofloxacin (Levaquin) 750 mg DAILY PO Last administered on 02/19/17at 09:04; Start 02/19/17 at 09:00 Potassium Chloride (KCl) 60 meq ONCE ONCE PO Last administered on 02/18/17at 18: 39; Start 02/18/17 at 16:00; Stop 02/18/17 at 16:01; Status DC Potassium Chloride (KCl) 20 meq ONCE ONCE PO ; Start 02/19/17 at 10:00; Stop 02/19/17 at 10:01; Status DC A/P Problem List: (1) Small bowel obstruction due to adhesions ICD Code: K56.50 - Intestinal adhesions [bands], unspecified as to partial versus complete obstruction Status: Acute Assessment and Plan This is a 46-year-old female who presented with small bowel obstruction consultation during surgery which patient aspirated and require intubation Acute Hypoxemic Respiratory Failure-resolved. -Secondary to aspiration pneumonia. Status post intubation and extubation on 02/15/2017. 2D Echo normal EF. Mild MN/TR -s/p cefepime and Rocephin. Sputum cultures grew Escherichia coli and Klebsiella pneumonia sensitive to Levaquin. on levaquin. Chest x-ray done on 02/17/2017 shows diffuse infiltrate that has been stable. -Clinically improving. Failed walk test. repeat cxr showed bilateral infliltrate but stable. reviewed ABG on RA. Lungs are cleared and clinically is asymptomatic. most likely due to aspiration PNA and will take time to improve. oxygen order placed yesterday. Small bowel obstruction -Status post laparoscopic lysis of adhesions. -Clinically doing well. Management per general surgeon. Sepsis -Secondary to aspiration pneumonia. Blood cultures negative. See treatment for pneumonia as above. -Resolved. Anxiety - Home medication already resumed. Hypokalemia -resolved. off lasix since not volume overloaded anymore. E Coli UTI on arrival to ED resolved. - DC clindamycin and cefepime. -Last urine cultures negative. -s/p Rocephin that will be discontinued. on Levaquin. Px - Lovenox and Pepcid Discharge Planning home oxygen order placed yesterday. patient medically cleared for discharge. Naz Nguyen MD Feb 19, 2017 10:11
[2017-02-19] MEDS ORDERED: WALKER WHEELS/F1 MIS (11:32)
--- NOTE | 2017-02-19 11:33 | HHI.FF ---
Face to Face Verification Diagnosis: (1) Physical deconditioning (2) Aspiration pneumonia (3) Acute respiratory failure (4) Small bowel obstruction due to adhesions Physical Therapy Order: Evaluate and Treat, Improve ambulation, Strength and gait training Home Health Nursing Order: Medical education Signs/symptoms of disease process Oxygen administration education Medication education-adverse effect Wound care and dressing changes I have seen patient Mariama Malone on 02/19/17. My clinical findings support the need for the requested home health care services because: Patient has SOB Deconditioned w/ increased weakness I certify that my clinical findings support that this patient is homebound because: Post-op weakness Naz Nguyen MD Feb 19, 2017 11:33
[2017-02-19 12:00] VITALS: BP 104/64; PULSE 69; RESP 16; TEMP 98.2; O2SAT 96
[2017-02-19] MEDS: ENOXAPARIN SODIUM 40 MG/0.4 ML SYRINGE SQ SCH (12:06)
[2017-02-19 16:00] VITALS: BP 121/58; PULSE 68; RESP 16; TEMP 98.2; O2SAT 96
--- NOTE | 2017-02-19 16:49 | HHI.PR ---
Subjective Subjective Notes Much improved Tolerating bariatric diet Objective Vitals/I&O Vital Signs Date Time Temp Pulse Resp B/P (MAP) Pulse Ox O2 Delivery O2 Flow Rate FiO2 02/19/17 16:00 98.2 68 16 121/58 (79) 96 02/19/17 08:54 Nasal Cannula 3.00 02/16/17 04:21 45 Labs Laboratory Tests Test 02/19/17 06:35 02/19/17 06:53 02/19/17 09:22 Blood Urea Nitrogen 11 Creatinine 0.51 Random Glucose 326 Calcium Level 8.3 Sodium Level 137 Potassium Level 3.7 Chloride Level 98 Carbon Dioxide Level 32.3 Anion Gap 7 Estimat Glomerular Filtration Rate 129 White Blood Count 5.2 Red Blood Count 3.60 Hemoglobin 10.5 Hematocrit 31.1 Mean Corpuscular Volume 86.6 Mean Corpuscular Hemoglobin 29.1 Mean Corpuscular Hemoglobin Concent 33.6 Red Cell Distribution Width 13.3 Platelet Count 154 Mean Platelet Volume 9.3 Neutrophils (%) (Auto) 75.1 Lymphocytes (%) (Auto) 16.5 Monocytes (%) (Auto) 5.9 Eosinophils (%) (Auto) 2.0 Basophils (%) (Auto) 0.5 Neutrophils # (Auto) 3.9 Lymphocytes # (Auto) 0.8 Monocytes # (Auto) 0.3 Eosinophils # (Auto) 0.1 Basophils # (Auto) 0.0 CBC Comment DIFF FINAL Differential Comment Blood Gas Puncture Site RT RADIAL Blood Gas Patient Temperature 98.6 Blood Gas HCO3 30 Blood Gas Base Excess 6.4 Blood Gas Oxygen Saturation 83 Arterial Blood pH 7.47 Arterial Blood Partial Pressure CO2 43 Arterial Blood Partial Pressure O2 55 Arterial Blood Oxygen Content 12.9 Arterial Blood Carboxyhemoglobin 1.1 Arterial Blood Methemoglobin 2.8 Blood Gas Hemoglobin 11.1 Oxygen Delivery Device ROOM AIR Blood Gas Inspired Oxygen 21 Date/Time Source Procedure Growth Status 02/14/17 09:35 Blood Peripheral Aerobic Blood Culture - Final NO GROWTH IN 5 DAYS Complete 02/14/17 09:35 Blood Peripheral Anaerobic Blood Culture - Final NO GROWTH IN 5 DAYS Complete 02/14/17 10:00 Sputum Endotracheal Gram Stain - Final Complete 02/14/17 10:00 Sputum Culture - Final Escherichia Coli Klebsiella Pneumoniae Complete 02/14/17 10:00 Urine Catheterized Urine Legionella Antigen - Final PRESUMPTIVE NEGATIVE FOR LEGIONELLA P... Complete 02/14/17 10:00 Urine Catheterized Urine Streptococcus pneumoniae Antigen (M - Final PRESUMPTIVE NEGATIVE FOR STREPTOCOCCU... Complete Radiology Last Impressions Chest X-Ray 02/16/17 0600 Signed Impressions: Service Date/Time: Thursday, February 16, 2017 04:53 - CONCLUSION: No significant interval change in bilateral diffuse pulmonary opacity. Nasogastric tube and endotracheal tube no longer seen. Vasyl Grider MD Chest CT 02/14/17 0000 Signed Impressions: Service Date/Time: Tuesday, February 14, 2017 15:50 - CONCLUSION: Airspace disease perihilar without air bronchograms suspicious for RDS. There is no pleural effusion. Adams Saravia MD FACR Abdomen/Pelvis CT 02/11/17 0316 Signed Impressions: Service Date/Time: Saturday, February 11, 2017 03:45 - CONCLUSION: 1. Previous gastric bypass. 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 2. Recurrent umbilical hernia containing a short segment of distal small bowel, not acutely contributory. Zak Guerrero MD Abdomen: Post-op tenderness Extremities: Perfused Wound Wound : Wound Location: Abdomen Appearance: Clean & Dry A/P Assessment and Plan 46yo F POD#4 lysis of adhesions/sbo Ok for discharge home with oxygen Remove MARGE dressing in 2 days, then leave open to air Monica Lee [facility] Feb 19, 2017 16:49
--- NOTE | 2017-02-27 13:13 | HHI.DS ---
Discharge Summary Admission Date Feb 11, 2017 at 04:39 Discharge Date: Feb 19, 2017 Admitting Diagnosis small bowel obstruction Procedures Lysis of adhesions Brief History 46yo F with a history of gastric bypass presented with persistent abdominal pain with nausea and vomiting. Significant Findings Laboratory Tests Test 02/11/17 03:00 02/11/17 04:32 02/12/17 04:50 02/15/17 04:16 Lipase 170 U/L Urine Collection Type CLEAN CATCH Urine Color YELLOW Urine Turbidity HAZY Urine pH 6.0 Urine Specific [place] 1.030 Urine Protein NEG mg/dL Urine Glucose (UA) NEG mg/dL Urine Ketones NEG mg/dL Urine Occult Blood SMALL Urine Nitrite POS Urine Bilirubin NEG Urine Leukocyte Esterase TRACE Urine RBC 0-3 /hpf Urine WBC 25-49 /hpf Urine Squamous Epithelial Cells 4-6 /hpf Urine Bacteria MANY /hpf Microscopic Urinalysis Comment CULTURE INDICATED Protein Corrected Calcium 8.0 MG/DL Blood Urea Nitrogen 13 MG/DL Creatinine 0.33 MG/DL Random Glucose 180 MG/DL Total Protein 6.0 GM/DL Albumin 2.1 GM/DL Calcium Level 8.3 MG/DL Phosphorus Level 2.6 MG/DL Magnesium Level 1.9 MG/DL Alkaline Phosphatase 94 U/L Aspartate Amino Transf (AST/SGOT) 13 U/L Alanine Aminotransferase (ALT/SGPT) 10 U/L Total Bilirubin 0.6 MG/DL Sodium Level 144 MEQ/L Potassium Level 3.5 MEQ/L Chloride Level 105 MEQ/L Carbon Dioxide Level 30.4 MEQ/L Test 02/15/17 08:50 02/16/17 04:30 02/18/17 07:00 02/18/17 13:30 Blood Gas Ventilator Setting CPAP/5/+5/40 Blood Urea Nitrogen 18 MG/DL 12 MG/DL Creatinine 0.45 MG/DL 0.51 MG/DL Random Glucose 239 MG/DL 282 MG/DL Total Protein 6.2 GM/DL 5.9 GM/DL Albumin 2.1 GM/DL 2.1 GM/DL Calcium Level 8.7 MG/DL 8.5 MG/DL Magnesium Level 2.0 MG/DL Alkaline Phosphatase 76 U/L 78 U/L Aspartate Amino Transf (AST/SGOT) 7 U/L 10 U/L Alanine Aminotransferase (ALT/SGPT) 9 U/L 12 U/L Total Bilirubin 0.5 MG/DL 0.5 MG/DL Sodium Level 143 MEQ/L 137 MEQ/L Potassium Level 3.3 MEQ/L 3.0 MEQ/L Chloride Level 102 MEQ/L 95 MEQ/L Carbon Dioxide Level 32.3 MEQ/L 33.4 MEQ/L B-Type Natriuretic Peptide 18 PG/ML Test 02/19/17 06:35 02/19/17 06:53 02/19/17 09:22 Blood Urea Nitrogen 11 MG/DL Creatinine 0.51 MG/DL Random Glucose 326 MG/DL Calcium Level 8.3 MG/DL Sodium Level 137 MEQ/L Potassium Level 3.7 MEQ/L Chloride Level 98 MEQ/L Carbon Dioxide Level 32.3 MEQ/L Anion Gap 7 MEQ/L Estimat Glomerular Filtration Rate 129 ML/MIN White Blood Count 5.2 TH/MM3 Red Blood Count 3.60 MIL/MM3 Hemoglobin 10.5 GM/DL Hematocrit 31.1 % Mean Corpuscular Volume 86.6 FL Mean Corpuscular Hemoglobin 29.1 PG Mean Corpuscular Hemoglobin Concent 33.6 % Red Cell Distribution Width 13.3 % Platelet Count 154 TH/MM3 Mean Platelet Volume 9.3 FL Neutrophils (%) (Auto) 75.1 % Lymphocytes (%) (Auto) 16.5 % Monocytes (%) (Auto) 5.9 % Eosinophils (%) (Auto) 2.0 % Basophils (%) (Auto) 0.5 % Neutrophils # (Auto) 3.9 TH/MM3 Lymphocytes # (Auto) 0.8 TH/MM3 Monocytes # (Auto) 0.3 TH/MM3 Eosinophils # (Auto) 0.1 TH/MM3 Basophils # (Auto) 0.0 TH/MM3 CBC Comment DIFF FINAL Differential Comment Blood Gas Puncture Site RT RADIAL Blood Gas Patient Temperature 98.6 Blood Gas HCO3 30 mmol/L Blood Gas Base Excess 6.4 mmol/L Blood Gas Oxygen Saturation 83 % Arterial Blood pH 7.47 Arterial Blood Partial Pressure CO2 43 mmHg Arterial Blood Partial Pressure O2 55 mmHg Arterial Blood Oxygen Content 12.9 Vol % Arterial Blood Carboxyhemoglobin 1.1 % Arterial Blood Methemoglobin 2.8 % Blood Gas Hemoglobin 11.1 G/DL Oxygen Delivery Device ROOM AIR Blood Gas Inspired Oxygen 21 % Imaging Last Impressions Chest X-Ray 02/19/17 0800 Signed Impressions: Service Date/Time: Sunday, February 19, 2017 08:27 - CONCLUSION: 1. Stable diffuse patchy bilateral airspace opacities. 2. No new focal lower lobe air space consolidation or effusion to suggest interval aspiration. Freeman Vegas MD Chest CT 02/14/17 0000 Signed Impressions: Service Date/Time: Tuesday, February 14, 2017 15:50 - CONCLUSION: Airspace disease perihilar without air bronchograms suspicious for RDS. There is no pleural effusion. Adams Saravia MD FACR Abdomen/Pelvis CT 02/11/17 0316 Signed Impressions: Service Date/Time: Saturday, February 11, 2017 03:45 - CONCLUSION: 1. Previous gastric bypass. 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 2. Recurrent umbilical hernia containing a short segment of distal small bowel, not acutely contributory. Zak Guerrero MD PE at Discharge CARDIOVASCULAR: Regular rate and rhythm without murmurs, gallops, or rubs. RESPIRATORY: Patient discharged with home oxygen GASTROINTESTINAL: Abdomen soft, non-tender, incisions clean, dry, and intact MUSCULOSKELETAL: No cyanosis, or edema. Hospital Course Mrs. Malone was taken to the operating room for lysis of adhesions, she experienced aspiration of gastric contents intra-operatively, prolonging extubation. She was transferred to Intensive Surgical Care for careful monitoring along with [place] [facility] [place] [employer] oversight. The patient was eventually able to be extubated though she did require supplemental oxygen upon discharge. During her stay, the patient was able to tolerated a bariatric diet without incident and was discharged home. Pt Condition on Discharge: Stable Discharge Disposition: Disch w/ Home Health Serv Discharge Instructions DIET: Follow Instructions for: Bariatric Surgery Diet Speech Therapy-Diet Recommends: Other Activities you can perform: Shower Only-No Bath Activities to Avoid: Strenuous Activity Other Activity Instructions: Remove MARGE dressing in 2 days Follow up Referrals: Surgical @ [facility] Surgery with Mamadou Can MD New Medications: Oxygen (O2) (Oxygen (O2)) Device LITER SIDNEY.CANULA CONTINUOUS for Prevent Hypoxemia, #2 0 Refills Oxygen Concentrator Portable Gaseous 2 L/min via Nasal Canula Continuous For 99 months Walker with Front Wheels (Walker with Front Wheels) 1 Mis Mis EA .ROUTE DIRECTED for physical deconditioned, #1 0 Refills Continued Medications: Alprazolam (Alprazolam) 0.25 Mg Tab 0.25 MG PO Q4H PRN for ANXIETY, TAB 0 Refills Bupropion HCl ER 24 HR (Wellbutrin Xl 24 HR) 300 Mg Tab 300 MG PO DAILY for Control Depression, TAB 0 Refills Calcium Carbonate (Calcium Carbonate) 1,500 Mg Tab 1500 MG PO BID for Calcium Supplement, TAB 0 Refills 1,500 mg calcium carbonate (600 mg elemental calcium) Clonazepam (Clonazepam) 0.5 Mg Tab 0.5 MG PO BID, #60 TAB 0 Refills Cyanocobalamin (B12) 1,000 Mcg Tab 1 TAB PO DAILY Docusate Sodium (Docusate Sodium) 100 Mg Cap 200 MG PO DAILY for Prevent Constipation, #60 CAP 0 Refills Escitalopram (Lexapro) 20 Mg Tab 20 MG PO DAILY, #30 TAB 0 Refills Folic Acid (Folic Acid) 0.4 Mg Tab 400 MCG PO DAILY for Nutritional Supplement, TAB 0 Refills Hydrocodone-Acetaminophen (Hydrocodone-Acetaminophen) 5-325 mg Tab 1 TAB PO Q4H PRN for PAIN, TAB 0 Refills Magnesium Citrate (Magnesium Citrate) 100 Mg Tab 100 MG PO BID, TAB 0 Refills Magnesium Oxide (Magnesium Oxide) 400 Mg Tab 400 MG PO DIRECTED for Nutritional Supplement, TAB 0 Refills Meloxicam (Mobic) 7.5 Mg Tab 7.5 MG PO DAILY for Pain, TAB 0 Refills Metoprolol Tartrate (Metoprolol Tartrate) 25 Mg Tab 12.5 MG PO DAILY, #30 TAB 0 Refills Multiple Vitamin (Multi-Vitamin Daily) 1 Tab Tab 1 TAB PO DAILY for Nutritional Supplement, TAB 0 Refills Omeprazole (Omeprazole) 20 Mg Tab 20 MG PO DAILY, #30 TAB 0 Refills Ursodiol (Ursodiol) 300 Mg Cap 300 MG PO BID for Gallstones, #60 CAP 0 Refills Discontinued Medications: Ibuprofen (Ibuprofen) 600 Mg Tab 600 MG PO Q8HR for 5 Days, TAB 0 Refills Additional Information This patient was examined by Dr. Can and myself and this note was written on his behalf Monica Lee Feb 27, 2017 13:13
--- NOTE | 2017-03-01 12:33 | MP ---
cc: KRISTY CAN DATE OF OPERATION 02/11/2017 DATE OF 1970 PREOPERATIVE DIAGNOSIS Bowel obstruction POSTOPERATIVE DIAGNOSIS Bowel obstruction PROCEDURE Exploratory laparotomy, extensive lysis of adhesions, repair of serosal injury. SURGEON Kristy Can MD ANESTHESIA General endotracheal anesthesia ESTIMATED BLOOD LOSS Scant FINDINGS Extensive intra-abdominal adhesions with adhesions at the patient's jejunojejunostomy causing obstruction at this point. There were serosal injuries to the small bowel that did not penetrate the intestines and were closed. SPECIMENS None COMPLICATIONS None OPERATION The patient was brought to the operating room, placed on the operating table in the supine position. Bilateral sequential inflation devices were placed on the lower extremities. General anesthesia instituted. Hopper catheter placed. Antibiotics initiated. The abdomen was prepped and draped sterilely. A point in the left lower quadrant anesthetized with quarter percent Marcaine with epinephrine. Attempts were made to enter the abdominal cavity in this region successfully. Attempts were then placed in the right lower quadrant again unsuccessfully and it was decided to open the patient. A skin incision was made through the patient's old incision. It was taken through the peritoneum. There were adhesions of small bowel in the midline. The incision was extended superiorly to a point without adhesions in the midline using sharp dissection, the small bowel was dissected off of the midline. The abdominal incisions was fully opened. There was more bowel adhered to the abdominal wall laterally. These were taken down using sharp dissection. Once the bowel was taken off the abdominal wall, there were interloop adhesions which were stuck and sharply . There was a point of interloop adhesions at the patient's jejunojejunostomy which was causing her obstruction. This was sharply . During the adhesiolysis, there was some serosal injuries. These were oversewn with 3-0 Vicryl sutures. Once the obstruction was released, the abdominal cavity was inspected. The bowel was inspected. No obstructive points identified further. There was mesh that the small bowel was stuck on and a portion of the abdominal wall with mesh was closed with #1 Prolene. Superior to that, the midline was closed with #1 PDS. The wound was irrigated with saline. The skin edges approximated with ebony. The abdominal wall was cleaned and a sterile dressing placed. The patient was awakened and taken to the recovery room. MD POPEYE Ramirez/ISACC /11:37 AM /12:20 PM
== END 2017-02-19 17:48 | disposition home or self-care (01) | DRG 329 ==
LOC: PHED 02:32 → PHEDA 04:39 → N07A 08:23 → N03B 14:02 → N03A 14:09 → N07B 02-17 22:07
PROVIDERS: ADMIT Surgery; ATTEND Surgery
PROC: 0DQA0ZZ Repair Jejunum, Open Approach (ICD-10-PCS; 2017-02-11)
PROC: 0T9B70Z Drainage of Bladder with Drainage Device, Via Natural or Artificial Opening (ICD-10-PCS; 2017-02-11)
PROC: 0DN80ZZ Release Small Intestine, Open Approach (ICD-10-PCS; principal; 2017-02-11 09:39)
PROC: 05H633Z Insertion of Infusion Device into Left Subclavian Vein, Percutaneous Approach (ICD-10-PCS; 2017-02-11 09:39)
DX: K56.50 Intestinal adhesions [bands], unspecified as to partial versus complete obstruction (principal); J96.01 Acute respiratory failure with hypoxia; R65.20 Severe sepsis without septic shock; J69.0 Pneumonitis due to inhalation of food and vomit; A41.9 Sepsis, unspecified organism; J15.0 Pneumonia due to Klebsiella pneumoniae; N39.0 Urinary tract infection, site not specified; S36.498A Other injury of other part of small intestine, initial encounter; I10 Essential (primary) hypertension; B96.20 Unspecified Escherichia coli [E. coli] as the cause of diseases classified elsewhere; K21.9 Gastro-esophageal reflux disease without esophagitis; K80.20 Calculus of gallbladder without cholecystitis without obstruction; K42.9 Umbilical hernia without obstruction or gangrene; E66.01 Morbid (severe) obesity due to excess calories; F13.90 Sedative, hypnotic, or anxiolytic use, unspecified, uncomplicated; Y65.8 Other specified misadventures during surgical and medical care; Y92.234 Operating room of hospital as the place of occurrence of the external cause; E87.6 Hypokalemia; Z98.84 Bariatric surgery status; E87.70 Fluid overload, unspecified; F42.9 Obsessive-compulsive disorder, unspecified; Z53.31 Laparoscopic surgical procedure converted to open procedure; Y83.8 Other surgical procedures as the cause of abnormal reaction of the patient, or of later complication, without mention of misadventure at the time of the procedure; Y73.8 Miscellaneous gastroenterology and urology devices associated with adverse incidents, not elsewhere classified
CPT/HCPCS: 36556; 36600; 71010; 71045; 71046; 71250; 74176; 80048; 80053; 81001; 82805; 83690; 83735; 83880; 84100; 84132; 84155; 85025; 86403; 87040; 87070; 87077; 87086; 87186; 87205; 87449; 93306; 94002; 94003; 94150; 94618; 94640; 94664; 94667; 94668; 96361; 96374; 96375; J0131; J0330; J0690; J0692; J0696; J1170; J1650; J1885; J1940; J2250; J2370; J2405; J2930; J3010; J3480; J7030; J7120; J7613